=== PATIENT | male | born 1960 | race Two or more races ===

== ENCOUNTER 2022-08-03 08:26 | Emergency (ER) | payer OTHER, SELFPAY ==
--- NOTE | ~2022-08-03 | XR_ITS ---
EXAMINATION: XR SHOULDER, RIGHT CLINICAL INFORMATION: Right shoulder pain COMPARISON: None available. TECHNIQUE: 5 views of the right shoulder. FINDINGS: No acute visible fracture or dislocation. Mild degenerative changes of the glenohumeral and acromioclavicular joint. Joint spaces and alignment are otherwise maintained. Soft tissues are unremarkable. Visualized portions of the right chest are unremarkable. XR/XR shoulder RT min 2V IMPRESSION: 1. No acute visible fracture or dislocation. 2. Mild degenerative changes of the glenohumeral and acromioclavicular joint.
[2022-08-03 08:42] VITALS: BP 126/63; PULSE 61; RESP 18; TEMP 36.6; O2SAT 98; BMI 28.4
--- NOTE | 2022-08-03 09:33 | ED.EXTPRO ---
HPI - Extremity Problem General Chief complaint: Extremity Problem Stated complaint: R shoulder/arm pain Time Seen by Provider: 08/03/22 09:32 Source: patient Mode of arrival: ambulatory History of Present Illness HPI Narrative: 62-year-old male with no significant past medical history presenting to the ED complaining of acute on chronic right shoulder pain x3 weeks. Reports woke up with the pain. Reports mild swelling. Admits to doing heavy lifting at work, denies known injury/trauma or fall. Denies chest pain, shortness of breath, numbness, tingling, weakness Complaint: extremity pain Onset (ago): day(s) Related Data Previous Rx's Medication Instructions Recorded acetaminophen 500 mg tablet 500 mg PO Q6H PRN fever or pain 08/03/22 (Tylenol Extra Strength) #14 tabs lidocaine 5 % topical patch 1 patch topical DAILY PRN pain #30 08/03/22 (Lidoderm) ea naproxen 500 mg tablet 500 mg PO BID PRN pain 10 days #20 08/03/22 tabs Allergies Allergy/AdvReac Type Severity Reaction Status Date / Time pollen extracts [POLLEN] Allergy Unknown UNKNOWN Unverified 03/03/21 10:55 Review of Systems Review of Systems: Constitutional: No Fever, No Chills ENT/Mouth: No Ear Pain, No Nasal Congestion, No sore throat, No Rhinorrhea, No Swallowing Difficulty Cardiovascular: No Chest Pain, No SOB Respiratory: No Cough, No Sputum, No Wheezing Gastrointestinal: No Nausea, No Vomiting, No Diarrhea, No Constipation, No Abdominal pain Genitourinary: No Dysuria, No Urinary Frequency, No Hematuria,No Flank Pain Musculoskeletal: + joint pain, No Myalgias, + Joint Swelling Skin: No Skin Lesions, No rash Neuro: No Weakness, No Numbness, No Paresthesias Yes all other systems are reviewed and are negative Constitutional: Constitutional: Reports as per HPI [facility] Past Medical History Attestation statement: The following information was validated with the patient. Social History Social History (System 03/03/21 @ 10:55 by Ashlyn Child) Advance Directives: No Advance Directives Information Provided: Yes Physical Exam Vital Signs: Vital Signs: Last Vital Signs Temp 98 F 08/03/22 08:42 Pulse 61 08/03/22 08:42 Resp 18 08/03/22 08:42 BP 126/63 08/03/22 08:42 Pulse Ox 98 08/03/22 08:42 O2 Del Method Room Air 08/03/22 08:42 BMI result Body Mass Index 28.4 Const: General: cooperative, healthy appearing and no acute distress Orientation/consciousness: patient oriented x3 Limitations: no limitations HEENT: Head: Yes normal to inspection and Yes atraumatic Ears: hearing grossly normal bilaterally General nose exam: Normal external nose present Face and sinus: Yes normal facial exam Eyes: General: appearance normal, both eyes and all related structures EOM: EOMs intact bilaterally Neck: Neck: Yes normal visual inspection and Yes no meningeal signs Chest: Chest palpation & inspection: normal inspection of the chest and no crepitus Resp: Effort & Inspection: normal respiratory effort and no respiratory distress Auscultation: clear to auscultation bilaterally Cardio: Rate: regular rate Heart sounds: S1 normal heart sound present and S2 normal heart sound present Peripheral pulses: Peripheral pulses 2+ throughout Back/Spine/Pelvis: Other: No midline cervical/thoracic/lumbar spinous tenderness/step-off or deformity Skin: Rashes: no rashes Wounds: no wounds Neuro: General: patient oriented x3, tone normal and no meningeal signs Gait exam (Neuro): Normal gait present Extrem: Other: Right shoulder without any deformity, no erythema/warmth. Tenderness to palpation to AC joint and right axilla. No appreciable lymphadenopathy, edema, or swelling. No warmth. Full range of motion intact without pain. Neurovascular intact distally General: Yes normal to inspection Course Course Course Narrative: 1141-- XR shoulder RT min 2V IMPRESSION: 1.? No acute visible fracture or dislocation. 2.? Mild degenerative changes of the glenohumeral and acromioclavicular joint. Results discussed with patient including worrisome signs and symptoms and strict return precautions, and when to return to the emergency department. They verbalized understanding and feel safe for discharge at this time. Medications Administered Discontinued Medications Generic Name Dose Route Start Last Admin Trade Name Freq PRN Reason Stop Dose Admin Ketorolac Tromethamine 30 mg 08/03/22 09:44 08/03/22 09:49 Ketorolac Tromethamine 30 Mg/Ml Vial IM 08/03/22 09:45 30 mg ONCE ONE Administration Medical Decision Making Medical Decision Making [facility] Narrative: 62-year-old male with no significant past medical history presenting to the ED complaining of acute on chronic right shoulder pain x3 weeks. On exam vital signs stable, NAD, nontoxic appearing, physical exam as noted above. Concern for right shoulder tendinitis vs osteoarthritis vs rotator cuff or tendon/ligamental injury. Lower suspicion for ACS/PE or fracture. Evidence of infection. Unlikely septic joint/arthritis Plan: EKG, x-ray, IM Toradol Please refer to course for remaining clinical decision making, interpretation of labs/imaging results, and discussions with consultants and/or family members. Differential Diagnosis Differential Diagnoses: The differential diagnosis associated with the presentation includes As above Lab Data MDM Lab Attestation statement: I reviewed the patient's lab results. Independent Interpretation I performed an independent interpretation of an: EKG (EKG is sinus bradycardia at a rate of 44. MI interval 156. QTC 386. No STEMI. No significant change when compared to prior ) Radiology Impression Discussion of test interpretation with radiology: I have reviewed the radiologist's reading. External Record Review External record reviewed: Inpatient record, Office record, Outpatient record, Prior outpatient labs, Prior outpatient radiology, Primary care record and Outside ED record Prescription Management I considered prescription management with: Pain Medication Discharge Plan Discharge Clinical Impression: Pain in right shoulder Patient Disposition: Home, Self-Care Instructions: Shoulder Pain (ED) Additional Instructions: You should follow-up with your doctor and Orthopedics as needed Your x-rays are unremarkable Naproxen as an anti-inflammatory / pain medication, take with food Lidoderm patches are numbing patches, apply to painful area In addition take Tylenol at home If symptoms persist or worsen, pain becomes unbearable, you developed urinary retention or incontinence, or weakness return to the ED Prescriptions: New acetaminophen [Tylenol Extra Strength] 500 mg tablet 500 mg PO Q6H PRN (Reason: fever or pain) Qty: 14 0RF lidocaine [Lidoderm] 5 % adhesive patch,medicated 1 patch topical DAILY MDD remove after 12 hours PRN (Reason: pain) Qty: 30 0RF Rx Instructions: leave on most painful area for up to 12 hrs naproxen 500 mg tablet 500 mg PO BID PRN (Reason: pain) 10 Days Qty: 20 0RF Referrals: [facility] [Provider Group] Physician,Unknown J [Primary Care Provider] -
--- NOTE | 2022-08-03 09:39 | ECG_ITS ---
Test Reason : r shoulder pain Blood Pressure : / mmHG Vent. Rate : 044 BPM Atrial Rate : 044 BPM P-R Int : 156 ms QRS Dur : 116 ms QT Int : 452 ms P-R-T Axes : 016 059 019 degrees QTc Int : 386 ms Marked sinus bradycardia Abnormal ECG When compared with ECG of 23-JUL-2007 12:43, No significant change was found Referred By: Loli Menchaca Electronically Signed By:CINTIA THAKUR MD
[2022-08-03] MEDS: Ketorolac Tromethamine 30 MG/ML VIAL IM (09:49)
--- OUTSIDE RECORDS SUMMARY | 2022-08-03 09:54 | XMS_ITS | Continuity of Care Document ---
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 Start Date: 07/08/21 Status: Ordered glyBURIDE 5 mg oral tablet 7.5 mg, 1.5, tablet, By Mouth, 2 times a day, with meals, # 30 tablet, Refills 0, Maintenance, 07/08/21 11:30:00 EDT, Partial fill upon patient request if the prescription is for a schedule II opioiddrug. Start Date: 07/08/21 Status: Ordered hydrochlorothiazide 25 mg oral tablet 25 mg, 1, tablet, By Mouth, Daily, # 30 tablet, Refills 0, Maintenance, 07/08/21 11:31:00 EDT, Partial fill upon patient request if the prescription is for a schedule II opioid drug. Start Date: 07/08/21 Status: Ordered lisinopril 20 mg oral tablet 20 mg, 1, tablet, By Mouth, Daily, # 90 tablet, Refills 0, Maintenance, 07/08/21 11:30:00 EDT, Partial fill upon patient request if the prescription is for a schedule II opioid drug. Start Date: 07/08/21 Status: Ordered metFORMIN 1000 mg oral tablet, extended release 1 tablet = 1,000 mg, By Mouth, 2 times a day, with meals, # 60 tablet, 0 Refills, Maintenance, 07/08/21 11:29:00 EDT, ER Tablet, Partial fill upon patient request if the prescription is for a schedule II opioid drug. Start Date: 07/08/21 Status: Ordered simvastatin 20 mg oral tablet 20 mg, 1, tablet, By Mouth, Daily at bedtime, # 90 tablet, Refills 0, Maintenance, 07/08/21 11:31:00 EDT, Partial fill upon patient request if the prescription is for a schedule II opioid drug. Start Date: 07/08/21 Status: Ordered Vital Signs Most recent to oldest [Reference Range]: 1 2 3 Weight 79.7 kg (07/08/21 10:59 AM) Oxygen Saturation [94-100 %] 99 % (07/08/21 12:30 PM) 99 % (07/08/21 12:15 PM) 100 % (07/08/21 11:26 AM) Pulse Rate [55-90 bpm] 62 bpm (07/08/21 10:59 AM) Blood Pressure [90-138/55-84 mm Hg] 129/69mm Hg (07/08/21 12:30 PM) 109/85mm Hg (07/08/21 12:15 PM) 100/64mm Hg (07/08/21 11:26 AM) Respiratory Rate [16-30 br/min] 23 br/min (07/08/21 12:30 PM) 11 br/min *L* (07/08/21 12:15 PM) 21 br/min (07/08/21 11:26 AM) Temperature [96.8-100.4 DegF] 97.7 DegF (07/08/21 12:30 PM) 97.8 DegF (07/08/21 12:15 PM) 97.8 DegF (07/08/21 10:59 AM) Liters per Minute 2 L/min (07/08/21 11:15 AM) Mode of Delivery (Oxygen) Room air (07/08/21 12:30 PM) Room air (07/08/21 12:15 PM) Nasal cannula (07/08/21 11:15 AM) Blood pressure sites Arm, right (07/08/21 12:30 PM) Arm, right (07/08/21 12:15 PM) Arm, right (07/08/21 10:59 AM) Temperature Route Temporal (07/08/21 12:30 PM) Temporal (07/08/21 12:15 PM) Temporal (07/08/21 10:59 AM) Dry Weight 79.7 kg (07/08/21 10:59 AM) Weight Obtained Via Standing scale (07/08/21 10:59 AM) Dry Weight Obtained Via Standing scale (07/08/21 10:59 AM)
== END 2022-08-03 12:18 | disposition home or self-care (01) ==
PROVIDERS: Emergency Provider Student in an Organized Health Care Education/Training Program
DX: M25.511 Pain in right shoulder (principal)
CPT/HCPCS: 73030; 93005; 96372; 99283; 99284; J1885

== ENCOUNTER 2023-02-28 07:31 | Emergency (ER) | payer OTHER, SELFPAY ==
--- NOTE | ~2023-02-28 | XR_ITS ---
EXAMINATION: XR CHEST CLINICAL INFORMATION: Cough. COMPARISON: None available. TECHNIQUE: 2 views of the chest were obtained. FINDINGS: No significant abnormality is noted involving the heart, lungs, mediastinum, bony thorax or soft tissues. XR/XR chest 2V IMPRESSION: Unremarkable chest examination.
[2023-02-28 07:35] VITALS: BP 145/77; PULSE 70; RESP 18; TEMP 35.7; O2SAT 97; BMI 29.8
--- NOTE | 2023-02-28 07:55 | ED.URI ---
HPI - URI/Sore Throat General Chief Complaint: Upper Respiratory Symptoms Stated Complaint: Congestion Wheezing Time Seen by Provider: 02/28/23 07:54 Source: patient and old records reviewed Mode of arrival: ambulatory Limitations: no limitations History of Present Illness HPI Narrative: 63 yo male with no sig PMH reports 5 months ago he had a cold and since then at night has a whistling in his mouth or nose he is not sure that wakes him up and then he cannot sleep. He is not waking up gasping or choking he just notes that he cannot take the whistling anymore. He does not have known sleep apnea, no orthopnea, daytime symptoms, LE edema, chest pain, fevers. MD elicited complaint: other (sleep disturbance) Onset (ago): month(s) (5) Consistency: intermittent Severity: mild Description of mucous: watery Able to tolerate fluids by mouth: Yes Exacerbating factors: other (sleeping) Relieving factors: nothing Context: other (started after URI) Associated symptoms: denies other symptoms Treatments prior to arrival: other (albuterol and zyrtec) Related Data Previous Rx's Medication Instructions Recorded acetaminophen 500 mg tablet 500 mg PO Q6H PRN fever or pain 08/03/22 (Tylenol Extra Strength) #14 tabs lidocaine 5 % topical patch 1 patch topical DAILY PRN pain #30 08/03/22 (Lidoderm) ea naproxen 500 mg tablet 500 mg PO BID PRN pain 10 days #20 08/03/22 tabs fluticasone furoate 27.5 1 spray intranasal DAILY #5.9 mL 02/28/23 mcg/actuation nasal spray,suspension Allergies Allergy/AdvReac Type Severity Reaction Status Date / Time pollen extracts [POLLEN] Allergy Unknown UNKNOWN Verified 02/28/23 07:35 Review of Systems Review of Systems: Constitutional : No Fever, No Chills ENT/Mouth : No Hoarseness, No sore throat, No Rhinorrhea Eyes: No Redness, No Discharge, No Vision Changes Cardiovascular : No Chest Pain, no SOB, no Dyspnea on Exertion, No Edema Respiratory : positive Cough, No Sputum, no Wheezing, Gastrointestinal : No Nausea, No Vomiting, No Diarrhea, No abdominal Pain Genitourinary : No Dysuria, No Hematuria Musculoskeletal : No joint pain, No Myalgias Skin : No rash Neuro : No Weakness, No Numbness, No Headache Psych : No anxiety, depression All other systems reviewed and are negative [facility] Social History (System 03/03/21 @ 10:55 by Ashlyn Child) Advance Directives: No Advance Directives Information Provided: Yes Physical Exam Vital Signs: Vital Signs: Last Vital Signs Temp 98.3 F 02/28/23 08:24 Pulse 64 02/28/23 08:24 Resp 20 02/28/23 08:24 BP 132/79 02/28/23 08:24 Pulse Ox 96 02/28/23 08:24 O2 Del Method Room Air 02/28/23 07:35 BMI result Body Mass Index 29.8 Appearance: Alert. Oriented X3. No acute distress. Eyes: Pupils equal, round and reactive to light. ENT: Pharynx normal. Bilateral turbinates are pink and boggy/swollen Neck: Normal inspection. Neck supple. CVS: Normal heart rate and rhythm. Pulses normal. Respiratory: No respiratory distress. Breath sounds normal. Abdomen: Soft and nontender. Skin: Skin warm and dry. Normal skin color. Normal skin turgor. Extremities: No lower extremity edema. No calf ttp Neuro: Oriented X 3. No motor deficit. No sensory deficit. Medical Decision Making Medical Decision Making MDM Narrative: 63 yo male with PMH of URI 5 months ago that has triggered night time disturbance that includes a whistling - no gasping/choking. He has no CP/fevers, productive sputum, BURNETT. No response to albuterol or cetirizine. He notes that he cannot sleep well - at this time turbinates are very swollen and boggy will place on fluticasone and refer to PCP for sleep study. Differential Diagnosis Differential Diagnoses: The differential diagnosis associated with the presentation includes URI, allergic rhinitis Admission/Observation Consideration of admission/observation: Escalation of care including admission/observation considered not toxic can be discharged home Lab Data [facility] Lab Attestation statement: I reviewed the patient's lab results. Independent Interpretation I performed an independent interpretation of an: Plain X-Ray (no pneumonia) Radiology Impression Discussion of test interpretation with radiology: I have reviewed the radiologist's reading. Prescription Management I considered prescription management with: Other Discharge Plan Discharge Clinical Impression: Allergic rhinitis Qualifiers: Allergic rhinitis trigger: unspecified Allergic rhinitis seasonality: unspecified Qualified Code(s): J30.9 - Allergic rhinitis, unspecified Patient Disposition: Home, Self-Care Instructions: Allergic Rhinitis (ED) Additional Instructions: take the albuterol inhaler as needed for wheezing, take the cetirizine every day. use the new nasal spray every day. you need a sleep study. return for worsening symptoms, difficulty breathing, fevers, chest pain or any other concerns. Prescriptions: New fluticasone furoate 27.5 mcg/actuation spray,suspension 1 spray intranasal DAILY Qty: 5.9 1RF Rx Instructions: into each nostril No Action acetaminophen [Tylenol Extra Strength] 500 mg tablet 500 mg PO Q6H PRN (Reason: fever or pain) Qty: 14 0RF lidocaine [Lidoderm] 5 % adhesive patch,medicated 1 patch topical DAILY MDD remove after 12 hours PRN (Reason: pain) Qty: 30 0RF Rx Instructions: leave on most painful area for up to 12 hrs naproxen 500 mg tablet 500 mg PO BID PRN (Reason: pain) 10 Days Qty: 20 0RF
[2023-02-28 08:24] VITALS: BP 132/79; PULSE 64; RESP 20; TEMP 36.8; O2SAT 96
[2023-02-28 09:19] LABS: Influenza A PCR NEGATIVE (Negative); Influenza B PCR NEGATIVE (Negative); Resp Syncy Virus RNA Qual PCR NEGATIVE (Negative); SARS COV2 PCR INHOUSE NEGATIVE (Negative)
== END 2023-02-28 09:15 | disposition home or self-care (01) ==
PROVIDERS: Emergency Provider Emergency Medicine; PCP Internal Medicine
DX: J30.9 Allergic rhinitis, unspecified (principal); G47.8 Other sleep disorders; Z20.822 Contact with and (suspected) exposure to COVID-19; Z20.828 Contact with and (suspected) exposure to other viral communicable diseases
CPT/HCPCS: 0241U; 71046; 99283; 99284

== ENCOUNTER 2023-03-07 07:17 | Emergency (ER) | payer OTHER, SELFPAY ==
[2023-03-07 08:04] VITALS: BP 133/78; PULSE 71; RESP 16; TEMP 36.1; O2SAT 97; BMI 30.5
--- NOTE | 2023-03-07 10:10 | ED.GENADULT ---
HPI - General Adult General Chief complaint: General Medical Stated complaint: Cough Time Seen by Provider: 03/07/23 09:04 Source: patient and RN notes reviewed Mode of arrival: ambulatory Limitations: no limitations History of Present Illness HPI narrative: This is a [id number], with a history of asthma and hypertension presenting to the emergency department with a complaint of dry cough x several months. Patient states that he has had this ongoing dry cough for the last 4 months. He was seen by his primary care physician who prescribed him cetirizine, albuterol, Tessalon and fluticasone which he has been using without any relief. He states that the cough worsens at bedtime. He was told last week in the emergency room to have a sleep apnea test, he states that he has not followed up with this as he does not have a primary care physician appointment until April. He denies any fevers, chills, chest pain, shortness breath, abdominal pain, nausea, vomiting or diarrhea. He takes lisinopril for his high blood pressure. No other complaints or concerns at this time. MD complaint: Cough Onset (ago): month(s) Radiation: non-radiation Quality: aching Relieving factors: none Exacerbating factors: none Associated symptoms: cough Treatments prior to arrival: none Related Data Previous Rx's Medication Instructions Recorded acetaminophen 500 mg tablet 500 mg PO Q6H PRN fever or pain 08/03/22 (Tylenol Extra Strength) #14 tabs lidocaine 5 % topical patch 1 patch topical DAILY PRN pain #30 08/03/22 (Lidoderm) ea naproxen 500 mg tablet 500 mg PO BID PRN pain 10 days #20 08/03/22 tabs fluticasone furoate 27.5 1 spray intranasal DAILY #5.9 mL 02/28/23 mcg/actuation nasal spray,suspension azithromycin 250 mg tablet See Rx Instructions PO .COMPLEX #6 03/07/23 tabs Allergies Allergy/AdvReac Type Severity Reaction Status Date / Time No Known Allergies Allergy Verified 03/07/23 08:02 Review of Systems Review of Systems: Yes all other systems are reviewed and are negative Constitutional: Constitutional: Reports as per [facility] Social History Social History Advance Directives: No Advance Directives Information Provided: Yes Physical Exam ED Vital Signs: Vital Signs - 24 hr 03/07/23 08:04 03/07/23 10:41 Temperature 97.0 F Pulse Rate 71 67 Respiratory Rate 16 18 Blood Pressure 133/78 Pulse Oximetry 97 Oxygen Delivery Method Room Air BMI result Body Mass Index 30.5 Const General: cooperative, comfortable and no acute distress Orientation/consciousness: patient oriented x3 Limitations: no limitations HENMT Head: Yes normal to inspection, Yes normocephalic and Yes atraumatic Ears: hearing grossly normal bilaterally General nose exam: Normal external nose present Face and sinus: Yes normal facial exam Mouth: Normal oral and palatal mucosa present, oropharynx normal and moist mucous membranes Throat: Yes posterior oropharynx normal Eyes General: appearance normal, both eyes and all related structures Eyelids: Yes eyelids normal Conjunctivae: conjunctivae normal Sclerae: sclerae normal Pupils: Equal, round and reactive pupils present EOM: EOMs intact bilaterally Neck Neck: Yes normal visual inspection, Yes full ROM and Yes no lymphadenopathy Lymphatic: no lymphadenopathy noted Chest Chest palpation & inspection: normal inspection of the chest Resp Other: Diminished in the lower bases. Effort & Inspection: normal respiratory effort and able to speak in complete sentences Cardio Rate: regular rate Rhythm: regular rhythm Heart sounds: S1 normal heart sound present and S2 normal heart sound present GI Inspection: Yes normal to inspection Skin General skin exam: no rashes or lesions noted Trauma: no lacerations or abrasions Wounds: no wounds Neuro General: patient oriented x3 and moves all extremities Cranial nerves: Yes Equal, round and reactive pupils present Extrem General: Yes normal to inspection Right upper extremity: normal to inspection Left upper extremity: normal to inspection Right lower extremity: normal to inspection Left lower extremity: normal to inspection Course Reevaluation(s) Reevaluation #1: Discussed with patient that his symptoms are likely due to lisinopril side effect. Patient requesting antibiotic. I do not think that this is necessary however given ongoing cough for the last 4 months, will try azithromycin. Educated the importance of following up with primary care physician for sleep apnea test and discontinuation of lisinopril and switching over to a different high blood pressure medication. Patient understands and agrees with plan. Patient given return precautions. Patient stable for discharge. Time: 11:06 Medications Administered Discontinued Medications Generic Name Dose Route Start Last Admin Trade Name Freq PRN Reason Stop Dose Admin Albuterol Sulfate 2 puff 03/07/23 10:32 03/07/23 10:37 Albuterol Sulfate 90 Mcg 8 Gm Inhaler INHALE 03/07/23 10:33 2 puff ONCE ONE Administration Medical Decision Making Medical Decision Making MDM Narrative: This is a 63-year-old male presenting to the emergency department with complaints of dry cough for the last several months. On arrival, patient is nontoxic appearing, vital signs within normal limits. Lungs diminished breath sounds in the lower bases. Patient is currently on lisinopril, has been on this for many years. Given that he has had this dry cough for the last 4 months within normal chest x-ray, patient's symptoms may be due to a side effect. Patient will be seen and evaluated by respiratory therapy given diminished lung sounds at bilateral bases. Urged the importance of following up with primary care physician to have sleep apnea test performed. Differential Diagnosis Differential Diagnoses: The differential diagnosis associated with the presentation includes Dry cough, bronchitis, Radiology Impression Discussion of test interpretation with radiology: I have reviewed the radiologist's reading. External Record Review External record reviewed: Inpatient record, Office record, Outpatient record, Prior outpatient labs, Prior outpatient radiology, Primary care record and Outside ED record Discharge Plan Discharge Clinical Impression: Cough, Cough due to JAY inhibitor Patient Disposition: Home, Self-Care Instructions: Chronic Cough (ED) Additional Instructions: You were seen in the emergency department due to a cough that you have had for several months. This is likely due to your medication lisinopril. Lisinopril is your high blood pressure medication that you take daily, a very common side effect of this is a chronic dry cough. Given you have not been put on a antibiotic, I am starting him on azithromycin. Please finish the entire course even if your feeling better. Drink plenty of fluids and get plenty of rest. You need to follow-up with your primary care physician to have them prescribe you a different high blood pressure medication. Please continue taking lisinopril until they make this change. If any new or worsening symptoms occur, including but not limited to chest pain or shortness of breath, please return for re-evaluation. Prescriptions: New azithromycin 250 mg tablet See Rx Instructions PO .COMPLEX Qty: 6 0RF Rx Instructions: For 250 mg dose pack: take 500 mg today (day 1), then 250 mg for 4 days (days 2-5) No Action acetaminophen [Tylenol Extra Strength] 500 mg tablet 500 mg PO Q6H PRN (Reason: fever or pain) Qty: 14 0RF lidocaine [Lidoderm] 5 % adhesive patch,medicated 1 patch topical DAILY MDD remove after 12 hours PRN (Reason: pain) Qty: 30 0RF Rx Instructions: leave on most painful area for up to 12 hrs naproxen 500 mg tablet 500 mg PO BID PRN (Reason: pain) 10 Days Qty: 20 0RF fluticasone furoate 27.5 mcg/actuation spray,suspension 1 spray intranasal DAILY Qty: 5.9 1RF Rx Instructions: into each nostril
[2023-03-07] MEDS: Albuterol Sulfate 90 MCG 8 GM INHALER 2 PUFF INHALE (10:37)
[2023-03-07 10:41] VITALS: PULSE 67; RESP 18; O2SAT 98
== END 2023-03-07 11:17 | disposition home or self-care (01) ==
PROVIDERS: Emergency Provider Emergency Medicine Emergency Medical Services; PCP Internal Medicine
DX: R05.9 Cough, unspecified (principal); Z79.899 Other long term (current) drug therapy
CPT/HCPCS: 94640; 99284

== ENCOUNTER → 2024-09-29 09:18 | Outpatient (BNV) | payer OTHER, SELFPAY | PROVIDERS: Emergency Provider Emergency Medicine; Visit Provider Radiology Diagnostic Radiology | DX: R06.02 Shortness of breath (principal) | CPT/HCPCS: 71046 ==

== ENCOUNTER 2024-09-29 09:39 | Emergency (ER) | payer OTHER, SELFPAY ==
--- NOTE | 2024-09-29 | ECG_ITS ---
Test Reason : SOB Blood Pressure : */* mmHG Vent. Rate : 92 BPM Atrial Rate : 92 BPM P-R Int : 164 ms QRS Dur : 104 ms QT Int : 360 ms P-R-T Axes : 43 74 -1 degrees QTcB Int : 445 ms Normal sinus rhythm Abnormal QRS-T angle, consider primary T wave abnormality Abnormal ECG When compared with ECG of 03-Aug-2022 11:01, Vent. rate has increased by 48 bpm QT has lengthened Referred By: Generic ED Physician Electronically Signed By: CINTIA THAKUR MD
--- NOTE | ~2024-09-29 | XR_ITS ---
CLINICAL HISTORY: SOB 2 view chest x-ray Comparison: CR/SR - XR CHEST 2V - 02/28/23 07:53 EST Findings: The lungs are clear. Normal size heart. No acute fracture. IMPRESSION: 1. No acute findings. This document has been electronically signed by: Krzysztof Gamez MD on 09/29/2024 12:14:10
[2024-09-29 09:43] VITALS: BP 145/76; PULSE 94; RESP 18; TEMP 36.7; O2SAT 96; BMI 26.4
[2024-09-29 10:04] LABS: MANUAL DIFF FLAG NO
[2024-09-29 10:05] LABS: Basophils Percent Auto 0.4 % (0-2); Eosinophils Absolute Auto 0.1 X10*3/uL (0.0-0.4); Eosinophils Percent Auto 0.7 % (0-4); Hematocrit 42.9 % (42.0-52.0); Imm Gran Abs Auto 0.05 X10*3/uL (0.00-0.03); Imm Gran Pct Auto 0.5 % (0.0-0.4); Lymphocytes Absolute Auto 1.6 X10*3/uL (1.2-4.9); Lymphocytes Percent Auto 17.2 % (20-40); Mean Corpuscular HGB Conc 32.6 g/dl (31.0-36.0); Mean Corpuscular Hemoglobin 27.1 pg (27.0-33.0); Mean Platelet Volume 9.5 fL (9.4-12.4); Monocytes Absolute Auto 0.5 X10*3/uL (0.1-1.2); Monocytes Percent Auto 5.4 % (2-11); Neutrophils Percent Auto 75.8 % (45-73); Platelet Count 194 X10*3/uL (160-400); Red Blood Count 5.17 X10*6/uL (4.60-5.80); White Blood Count 9.2 X10*3/uL (4.8-10.8)
[2024-09-29 10:18] LABS: Alanine Aminotransferase 30 U/L (0-40); Albumin Level 4.2 g/dL (3.5-5.0); Alkaline Phosphatase 69 U/L (39-117); Anion Gap 13 (12-20); Aspartate Amino Transferase 27 U/L (5-37); Bilirubin Total 0.6 mg/dL (0.0-1.0); Blood Urea Nitrogen 18 mg/dL (9-16); Calcium 9.6 mg/dL (8.4-10.2); Carbon Dioxide 25 mmol/L (22-29); Chloride 107 mmol/L (96-108); Creatinine Clr Calc Pharmacy 58.9; Estimated Glomerular Filt Rate 59; Glucose Random 218 mg/dL (60-115); Potassium 4.3 mmol/L (3.3-5.1); Sodium 141 mmol/L (135-145); Total Protein 7.1 g/dL (6.5-8.0)
[2024-09-29 10:23] LABS: B Type Natriuretic Peptide 26 pg/mL (<100)
[2024-09-29 10:24] LABS: Troponin-I High Sensitivity 14.7 ng/L (<3.5-35.0)
--- NOTE | 2024-09-29 11:02 | ED.GENADULT ---
HPI - General Adult General Chief complaint: General Medical Stated complaint: weight loss and other concerns Time Seen by Provider: 09/29/24 10:25 Source: patient Mode of arrival: ambulatory Limitations: no limitations History of Present Illness ED Provider: DR. Tiwari HPI narrative: a 64-year-old male who just recently lost his father and grieving came in for multiple complaints. patient notice losing weight over 2-3 weeks unintentionally however patient stated that he purchased a energy gummies from the Internet used it for about month then he stopped it because he started to notice that he is losing weight. patient also been having shortness of breath when he go upstairs. Currently patient has no acute symptoms, no headache, no blurry vision, no chest pain, no shortness of breath, no abdominal pain, no nausea, no vomiting, no diarrhea, no active bleeding. Related Data Previous Rx's ?Medication ?Instructions ?Recorded acetaminophen 500 mg tablet 500 mg PO Q6H PRN fever or pain 08/03/22 (Tylenol Extra Strength) #14 tabs lidocaine 5 % topical patch 1 patch topical DAILY PRN pain #30 08/03/22 (Lidoderm) ea naproxen 500 mg tablet 500 mg PO BID PRN pain 10 days #20 08/03/22 tabs fluticasone furoate 27.5 1 spray intranasal DAILY #5.9 mL 02/28/23 mcg/actuation nasal spray,suspension azithromycin 250 mg tablet See Rx Instructions PO .COMPLEX #6 03/07/23 tabs Allergies Allergy/AdvReac Type Severity Reaction Status Date / Time No Known Allergies Allergy Verified 09/29/24 09:43 Review of Systems Review of Systems: All other systems are reviewed and are negative Constitutional: Reports as per HPI and Reports no additional constitutional complaints Eyes: Reports as per HPI and Reports no additional eye complaints Reports system reviewed and no additional complaints, except as documented Cardiovascular: Reports as per HPI and Reports no additional cardiovascular complaints Respiratory: Reports as per HPI and Reports no additional respiratory complaints Gastrointestinal: Reports as per HPI and Reports no additional gastrointestinal complaints Genitourinary: Reports no additional female genitourinary complaints Musculoskeletal: Reports no additional musculoskeletal complaints Skin/Breast: Reports system reviewed and no additional complaints, except as docu Psychiatric: Reports no additional psychiatric complaints Endocrine: Reports no additional endocrine complaints Hematologic/Lymphatic: Reports no additional hematologic/lymphatic complaints Allergic/Immunologic: Reports no additional allergic/immunologic complaints Reports system reviewed and no additional complaints, except as documented and Reports Abnormal speech present FOR[facility]LY [facility], [facility] Social History Social History Smoked in Last 30 Days: No Use of substances other than those prescribed or required for medical reasons: No Advance Directives: No Advance Directives Information Provided: Yes Physical Exam ED Vital Signs: Vital Signs - 24 hr 09/29/24 09:43 Temperature 98.0 F Pulse Rate 94 Respiratory Rate 18 Blood Pressure 145/76 H Pulse Oximetry 96 Oxygen Delivery Method Room Air BMI result Body Mass Index 26.4 Vital signs have been reviewed and appear to be correct. Blood pressure elevated. Heart rate normal. Respiratory rate normal. Temperature normal. Oxygen saturation normal. Appearance: Alert. Oriented X3. No acute distress. Head: Normal external exam. Normocephalic. Atraumatic. No Pierce signs noted. No raccoon eyes noted Eyes: PERRLA. EOMI. Conjunctiva and sclera normal. Eyelids normal. ENT: TM's Normal. Pharynx normal. Uvula midline. Moist mucous membranes. No trismus noted. No drooling noted. No muffled voice noted. Neck: Normal inspection. Neck supple. FROM. No adenopathy. Thyroid Normal. No meningeal signs. No neck mass noted. CVS: Normal heart rate and rhythm. Heart sound normal. No murmurs noted. Pulses normal throughout. Respiratory: No respiratory distress. Painless inspiration. Breath sounds normal. No wheezes/rales/rhonchi noted. Chest nontender. No accessory muscle usage noted or decreased air movement noted. Abdomen: Soft and nontender. Bowel sounds normal in all 4 quadrants. No distention noted. No organomegaly noted. No visible injury noted. Back: No CVA tenderness. Full range of motion noted. Skin: Skin warm and dry. Normal skin color. Normal skin turgor. No rashes/lesions/lacerations noted. Extremities: No lower extremity edema. Extremities exhibit normal range of motion. Extremities nontender. Neuro: Oriented X 3. Cranial nerve exam: II-XII are grossly intact No motor deficit. No sensory deficit. Reflexes normal. Course Reevaluation(s) Reevaluation #1: 64-year-old male who presented concern of losing weight unintentionally, labs are unremarkable physical exam is unremarkable, VSS. unremarkable blood workup. Patient is complaining of exertional shortness of breath when he climbs stairs, has unremarkable cardiopulmonary exam, chest x-ray is unremarkable, labs are unremarkable. Patient instructed to follow-up with PCP. Time: 12:23 Medical Decision Making Differential Diagnosis Differential Diagnoses: The differential diagnosis associated with the presentation includes ( Electrolyte derangement, severe anemia, anxiety, pneumonia, pneumothorax, congestive heart failure, ACS.) Admission/Observation Consideration of admission/observation: Escalation of care including admission/observation considered Lab Data MDM Lab Attestation statement: I reviewed the patient's lab results. 09/29/24 10:00 09/29/24 10:00 Labs: Lab Results 09/29/24 Range/Units 10:00 WBC 9.2 (4.8-10.8) X10*3/uL RBC 5.17 (4.60-5.80) X10*6/uL Hgb 14.0 (14.0-18.0) g/dl Hct 42.9 (42.0-52.0) % MCV 83.0 (80.0-98.0) fL MCH 27.1 (27.0-33.0) pg MCHC 32.6 (31.0-36.0) g/dl RDW 13.0 (11.0-16.0) % Plt Count 194 (160-400) X10*3/uL MPV 9.5 (9.4-12.4) fL Immature Gran % (Auto) 0.5 H (0.0-0.4) % Neut % (Auto) 75.8 H (45-73) % Lymph % (Auto) 17.2 L (20-40) % [place] % (Auto) 5.4 (2-11) % Eos % (Auto) 0.7 (0-4) % Baso % (Auto) 0.4 (0-2) % Lymph # (Auto) 1.6 (1.2-4.9) X10*3/uL [place] # (Auto) 0.5 (0.1-1.2) X10*3/uL Eos # (Auto) 0.1 (0.0-0.4) X10*3/uL Baso # (Auto) 0.0 (0.0-0.2) X10*3/uL Abs Immat Gran (auto) 0.05 H (0.00-0.03) X10*3/uL Absolute Neuts (auto) 7.0 (2.0-8.3) x10*3/uL Absolute Nucleated RBC 0.000 (0.0-0.012) X10*3/uL Nucleated RBC % (auto) 0.0 (0.0-0.2) /100WBC Sodium 141 (135-145) mmol/L Potassium 4.3 (3.3-5.1) mmol/L Chloride 107 (96-108) mmol/L Carbon Dioxide 25 (22-29) mmol/L Anion Gap 13 (12-20) BUN 18 H (9-16) mg/dL Creatinine 1.24 (0.5-1.4) mg/dL Estim Creat Clear Calc 58.9 Estimated GFR 59 Random Glucose 218 H (60-115) mg/dL Calcium 9.6 (8.4-10.2) mg/dL Total Bilirubin 0.6 (0.0-1.0) mg/dL AST 27 (5-37) U/L ALT 30 (0-40) U/L Alkaline Phosphatase 69 (39-117) U/L Troponin I High Sens 14.7 (<3.5-35.0) ng/L B-Natriuretic Peptide 26 (<100) pg/mL Total Protein 7.1 (6.5-8.0) g/dL Albumin 4.2 (3.5-5.0) g/dL Independent Interpretation I performed an independent interpretation of an: EKG ( Normal sinus rhythm at 92, no significant EKG changes from previous EKG.) and Plain X-Ray ( chest: No acute findings.) Radiology Impression Discussion of test interpretation with radiology: I have reviewed the radiologist's reading. Discharge Plan Discharge Clinical Impression: Anxiety about health Patient Disposition: Home, Self-Care Instructions: Anxiety (ED) Prescriptions: No Action acetaminophen [Tylenol Extra Strength] 500 mg tablet 500 mg PO Q6H PRN (Reason: fever or pain) Qty: 14 0RF lidocaine [Lidoderm] 5 % adhesive patch,medicated 1 patch topical DAILY MDD remove after 12 hours PRN (Reason: pain) Qty: 30 0RF Rx Instructions: leave on most painful area for up to 12 hrs naproxen 500 mg tablet 500 mg PO BID PRN (Reason: pain) 10 Days Qty: 20 0RF azithromycin 250 mg tablet See Rx Instructions PO .COMPLEX Qty: 6 0RF Rx Instructions: For 250 mg dose pack: take 500 mg today (day 1), then 250 mg for 4 days (days 2-5) fluticasone furoate 27.5 mcg/actuation spray,suspension 1 spray intranasal DAILY Qty: 5.9 1RF Rx Instructions: into each nostril [facility], [facility]] Print Language: Faroese
--- OUTSIDE RECORDS SUMMARY | 2024-09-29 11:11 | XMS_ITS | Encounter Summary ---
Author Organization [employer] [facility] Address [address] [place] [address] [address] [place] [address] Care Team Providers Care Culinary Artist Name Role Phone Unavailable Primary Care Provider Unavailabl e Reason for Visit * Reason Onset Date Comments Appointment 12/20/2022 Encounter Details Date Type Department Care Team (Late st Contact Info) Description 12/20/2022 Telephone [facility] [address], [place] [phone] Nithya Neville [address], [place] [phone] Appointment Social History Tobacco Use Types Packs/Day Years Used Date Smoking Tobacco: Never Assessed Sex and Gender Information Value Date Recorded Sex Assigned at Male 01/31/2022 10:19 AM EDT Legal Sex Male 10:19 AM EDT Gender Identity Choose not to disclose 10:19 AM EDT Sexual Orientation Choose not to disclose 2021 10:19 AM EDT documented as of this encounter Miscellaneous Notes * Telephone Encounter - Naz Olivarez - 12/20/2022 4:01 PM EDT Patient on wait list since May for a cleaning and exam. Checking in on status of appt DR documented in this encounter Plan of Treatment Upcoming Encounters Date Type Department Care Team (Late st Contact Info) Description 09/30/2024 8:00 AM EDT Office Visit [facility] [address] [place] [address] Alejandra Matson [address] [place], [place] [phone] documented as of this encounter Visit Diagnoses Not on filedocumented in this encounter
[2024-09-29 13:13] VITALS: BP 131/70; PULSE 61; RESP 16; TEMP 36; O2SAT 97
== END 2024-09-29 13:14 | disposition home or self-care (01) ==
PROVIDERS: Emergency Provider Emergency Medicine
DX: F41.9 Anxiety disorder, unspecified (principal); R06.02 Shortness of breath; R94.31 Abnormal electrocardiogram [ECG] [EKG]; Z79.899 Other long term (current) drug therapy
CPT/HCPCS: 36415; 71046; 80053; 83880; 84484; 85025; 93005; 99283; 99284

== ENCOUNTER → 2024-09-29 09:54 | Outpatient (BNV) | payer OTHER, SELFPAY | PROVIDERS: Emergency Provider Emergency Medicine; Visit Provider Internal Medicine Cardiovascular Disease | DX: R94.31 Abnormal electrocardiogram [ECG] [EKG] (principal); R06.02 Shortness of breath | CPT/HCPCS: 93010 ==

== ENCOUNTER 2024-11-10 05:24 | Emergency (ER) | payer OTHER, SELFPAY ==
--- NOTE | ~2024-11-10 | XR_ITS ---
CLINICAL HISTORY: cough 1 view chest x-ray Comparison: CR - XR CHEST 2V - 09/29/24 10:18 EDT Findings: No consolidation or effusion. Heart size is normal. No acute fracture. IMPRESSION: No acute cardiopulmonary abnormality. This document has been electronically signed by: Oscar Goldsmith on 11/10/2024 07:36:18
[2024-11-10 05:35] VITALS: BP 116/60; PULSE 97; RESP 18; TEMP 37.1; O2SAT 98; BMI 26.0
[2024-11-10 05:59] VITALS: O2SAT 97
[2024-11-10 06:02] LABS: Hematocrit 42.9 % (42.0-52.0); Hemoglobin 14.4 g/dl (14.0-18.0); Imm Gran Abs Auto 0.03 X10*3/uL (0.00-0.03); Imm Gran Pct Auto 0.4 % (0.0-0.4); Lymphocytes Absolute Auto 1.5 X10*3/uL (1.2-4.9); MANUAL DIFF FLAG NO; Mean Corpuscular HGB Conc 33.6 g/dl (31.0-36.0); Mean Corpuscular Hemoglobin 27.7 pg (27.0-33.0); Mean Corpuscular Volume 82.5 fL (80.0-98.0); NRBC Abs Auto 0.000 X10*3/uL (0.0-0.012); NRBC Pct Auto 0.0 /100WBC (0.0-0.2); Platelet Count 152 X10*3/uL (160-400); Red Blood Count 5.20 X10*6/uL (4.60-5.80); White Blood Count 7.9 X10*3/uL (4.8-10.8)
[2024-11-10 06:10] LABS: IDNOW Serial# 55D5AD1C; Strep A Nucleic Acid Negative (Negative)
[2024-11-10 06:20] LABS: Alanine Aminotransferase 28 U/L (0-40); Albumin Level 4.0 g/dL (3.5-5.0); Alkaline Phosphatase 59 U/L (39-117); Anion Gap 13 (12-20); Aspartate Amino Transferase 25 U/L (5-37); Blood Urea Nitrogen 16 mg/dL (9-16); Calcium 8.9 mg/dL (8.4-10.2); Carbon Dioxide 25 mmol/L (22-29); Chloride 106 mmol/L (96-108); Creatinine Clr Calc Pharmacy 58.5; Estimated Glomerular Filt Rate 58; Potassium 3.8 mmol/L (3.3-5.1); Sodium 140 mmol/L (135-145); Total Protein 7.0 g/dL (6.5-8.0)
--- NOTE | 2024-11-10 06:41 | ED.URI ---
HPI - URI/Sore Throat General Chief Complaint: Upper Respiratory Symptoms Stated Complaint: Flu Like Time Seen by Provider: 11/10/24 06:34 Source: patient Mode of arrival: ambulatory Limitations: no limitations History of Present Illness ED Provider: Dr. Roya Penny HPI Narrative: Patient comes to the emergency room complaining nasal congestion diffuse body aches, sore throat a generalized malaise for about a week. Patient denies shortness of breath or chest pain. Related Data Previous Rx's ?Medication ?Instructions ?Recorded acetaminophen 500 mg tablet 500 mg PO Q6H PRN fever or pain 08/03/22 (Tylenol Extra Strength) #14 tabs lidocaine 5 % topical patch 1 patch topical DAILY PRN pain #30 08/03/22 (Lidoderm) ea naproxen 500 mg tablet 500 mg PO BID PRN pain 10 days #20 08/03/22 tabs fluticasone furoate 27.5 1 spray intranasal DAILY #5.9 mL 02/28/23 mcg/actuation nasal spray,suspension azithromycin 250 mg tablet See Rx Instructions PO .COMPLEX #6 03/07/23 tabs doxylamin 12.5 mg-PSE 10 mg-DM 20 1 packet PO Q4H #6 ea 11/10/24 mg-acetaminophen 650 mg oral pwdr pk ([place] Plus Cold-Flu) fluticasone propionate 50 1 spray intranasal BID #16 grams 11/10/24 mcg/actuation nasal spray,suspension (Flonase Allergy Relief) Allergies Allergy/AdvReac Type Severity Reaction Status Date / Time No Known Allergies Allergy Verified 11/10/24 05:36 Review of Systems Review of Systems: Constitutional : No Weight loss, No Fever, No Chills, No Night Sweats, complaining of fatigue ENT/Mouth : No Hearing loss, No Ear Pain, complaining of nasal congestion No Sinus Pain, No Hoarseness, complaining sore throat, No Rhinorrhea, No Swallowing Difficulty Eyes: No Eye Pain, No Swelling, No Redness, No Foreign Body, No Discharge, No Vision Changes Cardiovascular : No Chest Pain, No SOB, No Dyspnea on Exertion, No Orthopnea, No Edema, No Palpitations Respiratory : No Cough, No Sputum, No Wheezing, No Smoke Exposure, No Dyspnea Gastrointestinal : No Nausea, No Vomiting, No Diarrhea, No Constipation, No abdominal Pain, No Hematochezia, No Melena Genitourinary : no irregular bleeding, No Dysuria, No Urinary Frequency, No Hematuria, No Urinary Incontinence, No Urgency, No Flank Pain, No Urinary Flow Changes, No Hesitancy Musculoskeletal : No joint pain, No Myalgias, No Joint Swelling Skin : No Skin Lesions, No rash Neuro : No Weakness, No Numbness, No Paresthesias, No Loss of Consciousness, No Dizziness, No Headache Psych : No Anxiety/Panic, No Depression, No SI/HI/AH/VH, No Social Issues, Heme/Lymph: No Bruising, No Bleeding,No Lymphadenopathy Endocrine : No Polyuria, No Polydipsia, No Temperature Intolerance [facility] Past Medical History Medical History (Updated 11/10/24 @ 06:45 by Roya Penny MD) Blindness of left eye Diabetes Hypertension Social History Social History Smoked in Last 30 Days: No Use of substances other than those prescribed or required for medical reasons: No Advance Directives: No Advance Directives Information Provided: Yes Physical Exam Exam: Exam: Appearance: Alert. Oriented X3. No acute distress. Eyes: Pupil on the right side, reactive to light, round. Left eye corneal clouding, chronic ENT: Mildly erythematous oropharynx, uvula within normal limits, no exudates. Patient does have a bit of nasal congestion, no rhinorrhea Neck: Normal inspection. Neck supple. No lymph nodes noted. No crepitus CVS: Normal heart rate and rhythm. Pulses normal. Normal S1 and S2 Respiratory: No respiratory distress. Breath sounds normal. No Wheezing. No rales Abdomen: Soft and nontender. No rigidity. No distention. Skin: Skin warm and dry. Normal skin color. Normal skin turgor. Extremities: No lower extremity edema. No Lacerations. No Rash Neuro: Oriented X 3. No motor deficit. No sensory deficit. Moving all extremities. No slurred speech. CN 2 through 12 grossly intact Psych: calm, cooperative, normal affect Vital Signs: Vital Signs: Last Vital Signs Temp 98.8 F 11/10/24 05:35 Pulse 97 11/10/24 05:35 Resp 18 11/10/24 05:35 BP 116/60 11/10/24 05:35 Pulse Ox 97 11/10/24 05:59 O2 Del Method Room Air 11/10/24 05:59 BMI result Body Mass Index 26.0 Course Course Course Narrative: Patient reports URI symptoms for 1 week. All of patient's labs pending Medical Decision Making Medical Decision Making MDM Narrative: My interpretation of labs: No significant abnormality in patient's hematology chemistry, normal LFTs. Strep negative My interpretation of chest x-ray: No acute abnormalities. Serology was sent to the lab. However, I spoke with the lab because of the results have not come back, they lost the patient's serology, they state that it does not show in the computer. Overall, patient having a viral syndrome, no pneumonia, antibiotics not indicated. Treatment would be the same Differential Diagnosis Differential Diagnoses: The differential diagnosis associated with the presentation includes (Influenza, COVID, RSV, viral URI) Lab Data MDM Lab Attestation statement: I reviewed the patient's lab results. 11/10/24 05:55 11/10/24 05:55 Labs: Lab Results 11/10/24 Range/Units 05:55 WBC 7.9 (4.8-10.8) X10*3/uL RBC 5.20 (4.60-5.80) X10*6/uL Hgb 14.4 (14.0-18.0) g/dl Hct 42.9 (42.0-52.0) % MCV 82.5 (80.0-98.0) fL MCH 27.7 (27.0-33.0) pg MCHC 33.6 (31.0-36.0) g/dl RDW 13.5 (11.0-16.0) % Plt Count 152 L (160-400) X10*3/uL MPV 9.4 (9.4-12.4) fL Immature Gran % (Auto) 0.4 (0.0-0.4) % Neut % (Auto) 65.3 (45-73) % Lymph % (Auto) 19.3 L (20-40) % [place] % (Auto) 10.8 (2-11) % Eos % (Auto) 3.7 (0-4) % Baso % (Auto) 0.5 (0-2) % Lymph # (Auto) 1.5 (1.2-4.9) X10*3/uL [place] # (Auto) 0.9 (0.1-1.2) X10*3/uL Eos # (Auto) 0.3 (0.0-0.4) X10*3/uL Baso # (Auto) 0.0 (0.0-0.2) X10*3/uL Abs Immat Gran (auto) 0.03 (0.00-0.03) X10*3/uL Absolute Neuts (auto) 5.2 (2.0-8.3) x10*3/uL Absolute Nucleated RBC 0.000 (0.0-0.012) X10*3/uL Nucleated RBC % (auto) 0.0 (0.0-0.2) /100WBC Sodium 140 (135-145) mmol/L Potassium 3.8 (3.3-5.1) mmol/L Chloride 106 (96-108) mmol/L Carbon Dioxide 25 (22-29) mmol/L Anion Gap 13 (12-20) BUN 16 (9-16) mg/dL Creatinine 1.25 (0.5-1.4) mg/dL Estim Creat Clear Calc 58.5 Estimated GFR 58 Random Glucose 145 H (60-115) mg/dL Calcium 8.9 D (8.4-10.2) mg/dL Total Bilirubin 0.5 (0.0-1.0) mg/dL AST 25 (5-37) U/L ALT 28 (0-40) U/L Alkaline Phosphatase 59 (39-117) U/L Total Protein 7.0 (6.5-8.0) g/dL Albumin 4.0 (3.5-5.0) g/dL S. pyogenes GrpA WALESKA Negative (Negative) Discharge Plan Discharge Clinical Impression: Viral URI Patient Disposition: Home, Self-Care Instructions: Upper Respiratory Infection (ED) Additional Instructions: Please follow-up with your primary care physician tomorrow. If you have any worsening or new symptoms, please return to the emergency room or call 911 Prescriptions: New [place] Plus Cold-Flu 12.5-10-20-650 mg powder in packet 1 packet PO Q4H Qty: 6 0RF Rx Instructions: DNExceed 5 doses/24h fluticasone propionate [Flonase Allergy Relief] 50 mcg/actuation spray,suspension 1 spray intranasal BID Qty: 16 0RF Rx Instructions: administer into each nostril No Action acetaminophen [Tylenol Extra Strength] 500 mg tablet 500 mg PO Q6H PRN (Reason: fever or pain) Qty: 14 0RF lidocaine [Lidoderm] 5 % adhesive patch,medicated 1 patch topical DAILY MDD remove after 12 hours PRN (Reason: pain) Qty: 30 0RF Rx Instructions: leave on most painful area for up to 12 hrs naproxen 500 mg tablet 500 mg PO BID PRN (Reason: pain) 10 Days Qty: 20 0RF azithromycin 250 mg tablet See Rx Instructions PO .COMPLEX Qty: 6 0RF Rx Instructions: For 250 mg dose pack: take 500 mg today (day 1), then 250 mg for 4 days (days 2-5) fluticasone furoate 27.5 mcg/actuation spray,suspension 1 spray intranasal DAILY Qty: 5.9 1RF Rx Instructions: into each nostril Print Language: Burmese
[2024-11-10 07:48] LABS: Resp Syncy Virus RNA Qual PCR NEGATIVE (Negative); SARS COV2 PCR INHOUSE NEGATIVE (Negative)
[2024-11-10 07:54] VITALS: BP 110/76; PULSE 78; RESP 16; TEMP 37.1; O2SAT 99
== END 2024-11-10 07:54 | disposition home or self-care (01) ==
PROVIDERS: Emergency Provider Emergency Medicine; PCP Internal Medicine
DX: R09.81 Nasal congestion (principal); M79.10 Myalgia, unspecified site; Z03.818 Encounter for observation for suspected exposure to other biological agents ruled out; Z79.899 Other long term (current) drug therapy
CPT/HCPCS: 71045; 80053; 85025; 87637; 87651; 99283; 99284

== ENCOUNTER → 2024-11-10 05:43 | Outpatient (BNV) | payer OTHER, SELFPAY | PROVIDERS: Emergency Provider Emergency Medicine; PCP Internal Medicine; Visit Provider Radiology Vascular & Interventional Radiology | DX: R05.9 Cough, unspecified (principal) | CPT/HCPCS: 71045 ==

== ENCOUNTER 2024-11-20 11:43 | Emergency (ER) | payer OTHER, SELFPAY ==
[2024-11-20 12:37] VITALS: BP 128/88; BP 150/90; PULSE 50; PULSE 51; RESP 16; TEMP 36.4; O2SAT 100; O2SAT 98; BMI 26.4
--- NOTE | 2024-11-20 12:48 | ED.GENADULT ---
HPI - General Adult General Chief complaint: General Medical Stated complaint: VOMITING Time Seen by Provider: 11/20/24 18:45 Source: patient Limitations: no limitations History of Present Illness ED Provider: Zaina Gorman PA-C HPI narrative: 64-year-old male presents with nausea vomiting since earlier today. Patient states he just had Lasix surgery yesterday, he developed a headache with nausea vomiting. Denies eye pain. His headache nausea vomiting have completely resolved. Related Data Previous Rx's ?Medication ?Instructions ?Recorded acetaminophen 500 mg tablet 500 mg PO Q6H PRN fever or pain 08/03/22 (Tylenol Extra Strength) #14 tabs lidocaine 5 % topical patch 1 patch topical DAILY PRN pain #30 08/03/22 (Lidoderm) ea naproxen 500 mg tablet 500 mg PO BID PRN pain 10 days #20 08/03/22 tabs fluticasone furoate 27.5 1 spray intranasal DAILY #5.9 mL 02/28/23 mcg/actuation nasal spray,suspension azithromycin 250 mg tablet See Rx Instructions PO .COMPLEX #6 03/07/23 tabs doxylamin 12.5 mg-PSE 10 mg-DM 20 1 packet PO Q4H #6 ea 11/10/24 mg-acetaminophen 650 mg oral pwdr pk ([place] Plus Cold-Flu) fluticasone propionate 50 1 spray intranasal BID #16 grams 11/10/24 mcg/actuation nasal spray,suspension (Flonase Allergy Relief) Allergies Allergy/AdvReac Type Severity Reaction Status Date / Time No Known Allergies Allergy Verified 11/20/24 12:43 Review of Systems Review of Systems: Yes all other systems are reviewed and are negative Constitutional: Constitutional: Denies fatigue, Denies fever(s) and Denies headache(s) Eyes: Eyes: Denies eye pain ENT: Denies dizziness and Denies headache(s) Gastrointestinal: Gastrointestinal: Denies abdominal pain, Denies nausea and Denies vomiting Neurologic: Denies dizziness and Denies headache(s) Endocrine: Endocrine: Denies fatigue PMF Past Medical History Attestation statement: The following information was validated with the patient. Medical History (Updated 11/21/24 @ 00:00 by Hunter Arroyo) Blindness of left eye Diabetes Hypertension Social History Social History Advance Directives: No Advance Directives Information Provided: Yes Physical Exam ED Vital Signs: Vital Signs - 24 hr 11/20/24 12:37 11/20/24 18:42 Temperature 97.5 F 97.8 F Pulse Rate 51 50 Respiratory Rate 16 16 Blood Pressure 128/88 149/53 H Pulse Oximetry 100 99 Oxygen Delivery Method Room Air Room Air BMI result Body Mass Index 26.4 Const Other: Alert Orientation/consciousness: patient oriented x3 Resp Effort & Inspection: normal respiratory effort Cardio Other: Normal peripheral perfusion Skin Other: Warm dry no rash Neuro General: patient oriented x3, gait normal, no focal motor deficits and CN's II-XI intact bilaterally Psych Other: Cooperative Course Course Course Narrative: RME, this is a rapid medical exam performed by Anders Oates please refer to primary provider for complete H&P- 64-year-old male presents for evaluation of headache, nausea, vomiting and dizziness. He reports having had eye surgery yesterday. He is coming from the [facility] in follow up. Plan for basic labs, EKG. Medical Decision Making Medical Decision Making [facility] Narrative: 64-year-old male presents with nausea vomiting since earlier today. Patient states he just had Lasix surgery yesterday, he developed a headache with nausea vomiting. Denies eye pain. His headache nausea vomiting have completely resolved. Problem: Recent surgery History: Per patient I have considered the following differential diagnoses: Postoperative complication, side-effect from the procedure Plan: The patient's symptoms have completely resolved, it is a common side-effect to have headache with nausea vomiting following LASIK, the patient has been asking to leave since he arrived. We will discharge now. Screening labs were obtained from triage I have independently reviewed the following tests: Labs: Leukocytosis, not anemic, no electrolyte abnormality noted Differential Diagnosis Differential Diagnoses: The differential diagnosis associated with the presentation includes See medical decision-making Admission/Observation Consideration of admission/observation: Escalation of care including admission/observation considered Not applicable Lab Data [facility] Lab Attestation statement: I reviewed the patient's lab results. 11/20/24 13:13 11/20/24 13:13 Labs: Lab Results 11/20/24 11/20/24 Range/Units 13:13 16:45 WBC 15.8 H (4.8-10.8) X10*3/uL RBC 5.05 (4.60-5.80) X10*6/uL Hgb 13.9 L (14.0-18.0) g/dl Hct 42.0 (42.0-52.0) % MCV 83.2 (80.0-98.0) fL MCH 27.5 (27.0-33.0) pg MCHC 33.1 (31.0-36.0) g/dl RDW 13.2 (11.0-16.0) % Plt Count 207 D (160-400) X10*3/uL MPV 9.5 (9.4-12.4) fL Immature Gran % (Auto) 0.6 H (0.0-0.4) % Neut % (Auto) 89.3 H (45-73) % Lymph % (Auto) 7.3 L (20-40) % [place] % (Auto) 2.5 (2-11) % Eos % (Auto) 0.1 (0-4) % Baso % (Auto) 0.2 (0-2) % Lymph # (Auto) 1.2 (1.2-4.9) X10*3/uL [place] # (Auto) 0.4 (0.1-1.2) X10*3/uL Eos # (Auto) 0.0 (0.0-0.4) X10*3/uL Baso # (Auto) 0.0 (0.0-0.2) X10*3/uL Abs Immat Gran (auto) 0.09 H (0.00-0.03) X10*3/uL Absolute Neuts (auto) 14.1 H (2.0-8.3) x10*3/uL Absolute Nucleated RBC 0.000 (0.0-0.012) X10*3/uL Nucleated RBC % (auto) 0.0 (0.0-0.2) /100WBC Sodium 141 (135-145) mmol/L Potassium 3.7 (3.3-5.1) mmol/L Chloride 104 (96-108) mmol/L Carbon Dioxide 27 (22-29) mmol/L Anion Gap 14 (12-20) BUN 16 (9-16) mg/dL Creatinine 1.01 (0.5-1.4) mg/dL Estim Creat Clear Calc 72.4 Estimated GFR > 60 Random Glucose 185 H (60-115) mg/dL Calcium 9.3 (8.4-10.2) mg/dL Total Bilirubin 0.5 (0.0-1.0) mg/dL AST 24 (5-37) U/L ALT 31 (0-40) U/L Alkaline Phosphatase 65 (39-117) U/L Troponin I High Sens 8.1 (<3.5-35.0) ng/L Total Protein 7.4 (6.5-8.0) g/dL Albumin 4.6 (3.5-5.0) g/dL Urine Color Yellow Urine Appearance Clear Urine pH >= 9.0 (5.0-9.0) Ur Specific [place] 1.010 (1.005-1.025) Urine Protein Negative (Neg-Trace) mg/dL Urine Glucose (UA) Negative (Negative) mg/dL Urine Ketones Negative (Negative) mg/dL Urine Blood Negative (Negative) Urine Nitrite Negative (Negative) Ur Leukocyte Esterase Negative (Negative) Influenza Type A (PCR) NEGATIVE (Negative) Influenza Type B (PCR) NEGATIVE (Negative) RSV RNA Qual (PCR) NEGATIVE (Negative) SARS-CoV-2 RNA (RT-PCR) NEGATIVE (Negative) Discharge Plan Discharge Clinical Impression: Headache, Nausea & vomiting Patient Disposition: Home, Self-Care Instructions: Acute Headache (ED), Acute Nausea and Vomiting (ED) Additional Instructions: All of your screening labs were normal, with the exception that your white blood cell count was slightly elevated. This is likely purely reactive from having had a surgical procedure. In regard to your headache with nausea vomiting, this is a common side-effect associated with the LASIK surgery. Furthermore, your symptoms have completely resolved. Be sure to follow up with the doctor who performed the procedure. Prescriptions: No Action acetaminophen [Tylenol Extra Strength] 500 mg tablet 500 mg PO Q6H PRN (Reason: fever or pain) Qty: 14 0RF lidocaine [Lidoderm] 5 % adhesive patch,medicated 1 patch topical DAILY MDD remove after 12 hours PRN (Reason: pain) Qty: 30 0RF Rx Instructions: leave on most painful area for up to 12 hrs naproxen 500 mg tablet 500 mg PO BID PRN (Reason: pain) 10 Days Qty: 20 0RF azithromycin 250 mg tablet See Rx Instructions PO .COMPLEX Qty: 6 0RF Rx Instructions: For 250 mg dose pack: take 500 mg today (day 1), then 250 mg for 4 days (days 2-5) fluticasone furoate 27.5 mcg/actuation spray,suspension 1 spray intranasal DAILY Qty: 5.9 1RF Rx Instructions: into each nostril [place] Plus Cold-Flu 12.5-10-20-650 mg powder in packet 1 packet PO Q4H Qty: 6 0RF Rx Instructions: DNExceed 5 doses/24h fluticasone propionate [Flonase Allergy Relief] 50 mcg/actuation spray,suspension 1 spray intranasal BID Qty: 16 0RF Rx Instructions: administer into each nostril Interventions: ED Discharge Assessment Last Done: 11/20/24 19:34 Discharge Date/Time: 11/20/24 19:34 Print Language: Anguillan
[2024-11-20 13:23] LABS: MANUAL DIFF FLAG NO
[2024-11-20 13:25] LABS: Hematocrit 42.0 % (42.0-52.0); Hemoglobin 13.9 g/dl (14.0-18.0); Imm Gran Abs Auto 0.09 X10*3/uL (0.00-0.03); Imm Gran Pct Auto 0.6 % (0.0-0.4); Lymphocytes Absolute Auto 1.2 X10*3/uL (1.2-4.9); Mean Corpuscular HGB Conc 33.1 g/dl (31.0-36.0); Mean Corpuscular Hemoglobin 27.5 pg (27.0-33.0); Mean Corpuscular Volume 83.2 fL (80.0-98.0); NRBC Abs Auto 0.000 X10*3/uL (0.0-0.012); NRBC Pct Auto 0.0 /100WBC (0.0-0.2); Platelet Count 207 X10*3/uL (160-400); Red Blood Count 5.05 X10*6/uL (4.60-5.80); White Blood Count 15.8 X10*3/uL (4.8-10.8)
[2024-11-20 13:45] LABS: Alanine Aminotransferase 31 U/L (0-40); Albumin Level 4.6 g/dL (3.5-5.0); Alkaline Phosphatase 65 U/L (39-117); Anion Gap 14 (12-20); Aspartate Amino Transferase 24 U/L (5-37); Blood Urea Nitrogen 16 mg/dL (9-16); Calcium 9.3 mg/dL (8.4-10.2); Carbon Dioxide 27 mmol/L (22-29); Chloride 104 mmol/L (96-108); Creatinine Clr Calc Pharmacy 72.4; Estimated Glomerular Filt Rate > 60; Potassium 3.7 mmol/L (3.3-5.1); Sodium 141 mmol/L (135-145); Total Protein 7.4 g/dL (6.5-8.0)
[2024-11-20 13:52] LABS: Troponin-I High Sensitivity 8.1 ng/L (<3.5-35.0)
[2024-11-20 14:16] LABS: Resp Syncy Virus RNA Qual PCR NEGATIVE (Negative); SARS COV2 PCR INHOUSE NEGATIVE (Negative)
[2024-11-20 16:57] LABS: Appearance Urine Clear; Glucose Urine UA Negative (Negative); PH >= 9.0 (5.0-9.0); Specific Gravity - Urine 1.010 (1.005-1.025)
[2024-11-20 18:42] VITALS: BP 149/53; PULSE 50; RESP 16; TEMP 36.6; O2SAT 99
[2024-11-20 19:34] VITALS: BP 149/53; PULSE 50; RESP 16; TEMP 36.6; O2SAT 99
--- NOTE | 2024-11-21 | ECG_ITS ---
Test Reason : SOB Blood Pressure : */* mmHG Vent. Rate : 46 BPM Atrial Rate : 46 BPM P-R Int : 160 ms QRS Dur : 116 ms QT Int : 456 ms P-R-T Axes : 43 74 13 degrees QTcB Int : 399 ms Sinus bradycardia Otherwise normal ECG When compared to the previous EKG of Vent. rate has decreased Referred By: Phan Atkinson Electronically Signed By: CINTIA THAKUR MD
== END 2024-11-20 19:34 | disposition home or self-care (01) ==
PROVIDERS: Emergency Provider Emergency Medicine; PCP Internal Medicine
DX: R11.2 Nausea with vomiting, unspecified (principal); R51.9 Headache, unspecified; I10 Essential (primary) hypertension; E11.9 Type 2 diabetes mellitus without complications; Z79.899 Other long term (current) drug therapy
CPT/HCPCS: 80053; 81003; 84484; 85025; 87637; 93005; 99283; 99284

== ENCOUNTER → 2024-11-21 | Outpatient (BNV) | payer OTHER, SELFPAY | PROVIDERS: Emergency Provider Emergency Medicine; PCP Internal Medicine; Visit Provider Internal Medicine Cardiovascular Disease | DX: R00.1 Bradycardia, unspecified (principal) | CPT/HCPCS: 93010 ==

== ENCOUNTER 2024-12-02 04:24 | Emergency (ER) | payer OTHER, SELFPAY ==
--- NOTE | 2024-12-02 | ECG_ITS ---
Test Reason : CP, SOB Blood Pressure : */* mmHG Vent. Rate : 76 BPM Atrial Rate : 76 BPM P-R Int : 166 ms QRS Dur : 108 ms QT Int : 372 ms P-R-T Axes : 12 63 0 degrees QTcB Int : 418 ms Normal sinus rhythm Normal ECG When compared with ECG of 20-Nov-2024 12:56, Vent. rate has increased by 30 bpm Referred By: Generic ED Physician Electronically Signed By: CINTIA THAKUR MD
--- NOTE | ~2024-12-02 | XR_ITS ---
CLINICAL HISTORY: chest pain 2 view chest x-ray. Comparison: CR - XR CHEST 1V - 11/10/24 06:02 EDT CR - XR CHEST 2V - 09/29/24 10:18 EDT Findings: Normal lung volumes. Lungs are clear. No pneumothorax or pleural effusion. Heart size normal. No passive venous congestion. No midline shift or tracheal deviation. No acute fracture. Impression: 1. No acute cardiopulmonary disease. This document has been electronically signed by: Omari Bush MD on 12/02/2024 07:51:14
[2024-12-02 04:52] VITALS: BMI 26.3
--- OUTSIDE RECORDS SUMMARY | 2024-12-02 05:10 | XMS_ITS | Clinical Summary ---
Author Organization [employer] Address [address] [place] [address] Care Team Providers [facility] Name Role Phone Unavailable Primary Care Provider Unavailabl e Allergies Active Allergy Reactions Criticality Noted Date Comments Clindamycin Shortness of breath High 12/05/2012 Medications Acetaminophen Extra Strength 500 MG tablet TAKE 1 TABLET ORALLY EVERY 6 HOURS NEEDED FOR FEVER OR PAIN 3 Active albuterol 108 (90 Base) MCG/ACT inhaler INHALE 2 PUFFS INTO THE LUNGS EVERY 6 HOURS NEEDED FOR COUGH OR WHEEZING. 3 Active hydroCHLOROthia zide (HYDRODiuril) 25 MG tablet Take 25 mg by mouth in the morning. 3 Active lisinopril 20 MG tablet 3 Active latanoprost (Xalatan) 0.005 % ophthalmic solution INSTILL 1 DROP INTO RIGHT EYE EVERY NIGHT 2 Active metFORMIN (Glucophage) 1000 MG tablet Take 1,000 mg by mouth with breakfast and with evening meal. 3 Active simvastatin (Zocor) 20 MG tablet Take 20 mg by mouth at bedtime. 3 Active tadalafil (Cialis) 20 MG tablet TAKE ONE TABLET BY MOUTH EVERY DAY DIRECTED; TAKE 30-60 MINUTES PRIOR TO SEX ON AN EMPTY STOMACH 3 Active tamsulosin (Flomax) 0.4 MG 24 hr capsule TAKE 1 CAPSULE BY MOUTH EVERYDAY AT BEDTIME 3 Active glyBURIDE (Diabeta) 2.5 MG tablet Take 2.5 mg by mouth with breakfast. 3 Active famotidine (Pepcid) 40 MG tablet TAKE 1 TABLET BY MOUTH 2 TIMES DAILY NEEDED FOR GERD FOR UP TO 360 DAYS. 3 Active cetirizine (ZyrTEC) 10 MG tablet Take 10 mg by mouth in the morning. 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 Social History Tobacco Use Types Packs/Day Years Used Date Smoking Tobacco: Former Cigarettes Smokeless Tobacco: Never Tobacco Cessation:Counseling Given: Not Answered Sex and Gender Information Value Date Recorded Sex Assigned at Male 01/31/2022 10:19 AM EDT Legal Sex Male 10:19 AM EDT Gender Identity Choose not to disclose 10:19 AM EDT Sexual Orientation Choose not to disclose 2021 10:19 AM EDT Last Filed Vital Signs Vital Sign Reading Time Taken Comments Blood Pressure 122/74 02/06/2024 7:56 AM EST Pulse 74 07/25/2023 8:41 AM EDT Temperature - - Respiratory Rate - - Oxygen Saturation - - Inhaled Oxygen Concentration - - Weight - - Height - - Body Mass Index - - Plan of Treatment Health Maintenance Due Date Last Done Comments CT Colonography 1961 Colonoscopy 1961 Colorectal Cancer Screening 1961 Depression Screening 1961 FIT DNA/Cologuard 1961 FIT 1961 FOBT 1961 HIV Screening 1961 Lipid Panel 1961 SDOH Screening 1961 Sigmoidoscopy 1961 Disability Screening 1961 Alcohol/Substance Use Screening 1973 Hepatitis C Screening 1979 COVID-19 Vaccine ( season) 2023 11/27/2022, 10/24/2021, 04/18/2021, Additional history exists Dental Oral Exam 01/25/2024 07/25/2023, 01/2023, 05/29/2019, Additional history exists Dental X-Ray: Full Mouth 03/17/2024 03/16/2021, 11/2013 Dental X-Ray: Bitewings 07/25/2024 07/25/19, 12/23/2022, 03/16/2021, Additional history exists Dental Prophylaxis 08/06/2024 02/06/2024, 0 07/25/2023, 12/23/2022, Additional history exists Influenza Vaccine (#1) 2024 3, 12/24/2010, 01/13/2010 Tobacco Screening 02/05/2025 02/06/2024 DTaP/Tdap/Td Vaccines (3 - Td or Tdap) 01/18/2029 01/18/2019, 07/11/2008 Zoster Vaccines Completed 01/07/2023, 10/16/2022 Pneumococcal Vaccine: 50+ Years Completed 09/08/2023, 11/11/2013 RSV Patients and Patients Aged 60 years or older Completed 09/08/2023 HIB Vaccines Aged Out No longer eligi ble based on patient's age to complete this topic HPV Vaccines Aged Out No longer eligi ble based on patient's age to complete this topic Hepatitis A Vaccines Aged Out No long er eligible based on patient's age to complete this topic Hepatitis B Vaccines Aged Out No long er eligible based on patient's age to complete this topic IPV Vaccines Aged Out No longer eligi ble based on patient's age to complete this topic Meningococcal B Vaccine Aged Out No l onger eligible based on patient's age to complete this topic Meningococcal Vaccine Aged Out No patricio mary eligible based on patient's age to complete this topic RSV under 20 months Aged Out No longe r eligible based on patient's age to complete this topic Rotavirus Vaccines Aged Out No longer eligible based on patient's age to complete this topic Procedures Procedure Name Priority Date/Time Associated Diagnosis Comments Full PROPHYLAXIS - ADULT Routine 024 8:00 AM EST Dental plaque BITEWINGS - 4 RADIOGRAPHIC IMAGES Routine 07/25/2023 9:00 AM EDT Gingival recession, generalized Dental calculus PERIODIC ORAL EVALUATION - ESTABLISHED PATIENT Routine 07/25/2023 9:00 AM EDT INTRAORAL - COMPLETE SERIES OF RADIOGRAPHIC IMAGES Routine 03/16/2021 12:00 AM EST from Last 3 Months or Most Recently Relevant to Health Maintenance Insurance [facility] MEDICAID STAND ADULT * Guarantor: Holland Washburn Account Type Relation to Patient Date of Phone Billing Address Personal/Family Self [address]
--- OUTSIDE RECORDS SUMMARY | 2024-12-02 05:10 | XMS_ITS | Clinical Summary ---
Author Organization [facility] [address] [facility] l[address] Address [address] [place] [address] Phone Care Team Providers Care Lehr Operator Name Role Phone Octavia Marie MD Primary Care Provider [phone] Allergies Active Allergy Reactions Criticality Noted Date Comments Clindamycin Shortness of breath High 12/05/2012 Medications ammonium lactate (LAC-HYDRIN) 12 % lotion APPLY TO SOLES OF FEET DAILY. AT NIGHT WEAR SOCKS TO BED Strength: 12 % 10/09/19 24 Active ciclopirox (PENLAC) 8 % solution Apply daily to nails clean medication residue off of nail plate every 3 days with rubbing alcohol 08/14/19 24 Active fexofenadine (HARJEET) 60 mg tablet Take 1 tablet (60 mg total) by mouth 1 (one) time each day. 08/09/19 24 Active fluticasone (VERAMYST) 27.5 mcg/actuation nasal spray Administer 2 sprays into affected nostril(s) 1 (one) time each day. 02/09/20 23 Active tamsulosin (FLOMAX) 0.4 mg 24 hr capsule Take 1 capsule (0.4 mg total) by mouth 1 (one) time each day. Take 30 mins after same meal every day. Dx BPH, prescribe by urologist Active Autolet lancing deviceIndications: Type II diabetes mellitus with neurological manifestations (CMS/HCC V24, CMS/HCC V28) Use 1 - 4 times daily as instructed 100 each 11 02/13/20 24 025 Active isopropyl alcohoL 70 % toweletteIndicatio ns:Type II diabetes mellitus with neurological manifestations (CMS/HCC V24, CMS/HCC V28) Use as directed 100 each 3 02/13/20 24 Active Autolet (OneTouch Delica Plus Lanc Dev) lancing device Use as instructed once daily 1 each 02/22/20 24 Active OneTouch Ultra2 Meter misc USE TO MONITOR BLOOD SUGAR ONCE DAILY 1 each 02/23/20 24 025 Active FreeStyle Lite Meter monitoring kit USE TO TEST BLOOD SUGAR ONCE DAILY 1 each 03/06/20 24 Active FreeStyle Lancets 28 gauge lancets USE TO TEST BLOOD SUGAR ONCE DAILY 100 each 1 03/06/20 24 025 Active famotidine (PEPCID) 40 mg tablet TAKE 1 TABLET BY MOUTH 2 TIMES DAILY NEEDED FOR GERD 180 tablet 1 04/10/19 25 Active mineral oil-hydrophilic petrolatum (AQUAPHOR) ointment Apply topically if needed for dry skin. 420 g 1 06/05/19 25 026 Active ammonium lactate (AmLactin) 12 % lotion Apply topically if needed for dry skin. 400 g 2 06/28/19 25 026 Active lisinopriL (PRINIVIL,ZESTRIL) 20 mg tablet TAKE 1 TABLET BY MOUTH EVERY DAY 90 tablet 1 07/26/19 25 Active polyethylene glycol (Golytely) 236-22.74-6.74 -5.86 gram solution Take 4L by mouth once for one dose. May substitue any PEG. Starting at 6PM the night before your procedure drink 1 8oz glasses at your own pace until you complete half of the gallon. Finish 2nd half of the gallon 5 hours before your procedure. 4000 mL 07/27/19 25 Active bisacodyL (DULCOLAX) 5 mg EC tablet Take 2 tablets by mouth right before beginning bowel prep. See instructions provided by the office 2 tablet 07/27/19 25 Active metFORMIN (GLUCOPHAGE) 1,000 mg tablet Take 1 tablet (1,000 mg total) by mouth 2 (two) times a day with meals. 180 tablet 1 08/31/19 25 Active blood sugar diagnostic (FreeStyle Lite Strips) test strip USE TO TEST BLOOD SUGAR ONCE DAILY 100 strip 1 10/09/19 25 Active hydroCHLOROthiazid e (HYDRODIURIL) 25 mg tablet TAKE 1 TABLET BY MOUTH EVERY DAY 90 tablet 10/09/19 25 Active simvastatin (ZOCOR) 20 mg tablet TAKE 1 TABLET BY MOUTH EVERYDAY AT BEDTIME 90 tablet 1 10/16/19 25 Active acetic acid-hydrocortison e (VOSOL-HC) otic solution Administer 3 drops into each ear 3 (three) times a day. 5 mL 11/07/19 25 026 Active Active Problems Problem Noted Date Diagnosed Date Type 2 diabetes mellitus wit h other specified complication ([facility] V24, [facility] V28) 11/12/2024 Primary hypertension 11/12/2024 Adjustment disorder with depressed mood 04/26/19 20 Type II diabetes mellitus wi th neurological manifestations ([facility] V24, [facility] V28) 01/18/2019 Renal cyst 04/09/2018 Prostate enlargement 12/29/2016 Blindness of left eye 09/24/2015 Overview (01/04/2024): 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 Diastasis recti 03/20/2015 Low HDL (under 40) 02/18/2015 Lipoma of breast 02/19/2014 Breast mass in male 02/12/2014 Hand pain 12/30/2013 Microalbuminuria 06/07/2013 DM (diabetes mellitus) type II controlled with renal manifestation ([facility] V24, [facility] V28) 08/08/2012 Overview (01/04/2024): Microalbumin 48 on 04/17/2011 Allergic rhinitis 06/27/2012 Essential hypertension, benign 06/27/2012 Depression 10/01/2010 Hyperlipidemia with target LDL less than 100 07/2007 Overview (01/04/2024): IMO update Chest pain, unspecified 02/27/2008 Obesity, unspecified 02/27/2008 Premature ejaculation 02/27/2008 Encounters Date Type Department Care Team Description 11/12/2024 1:20 PM EDT Lab Draw Station - [address] [id number] Preop examination; Type 2 diabetes mellitus without complication, without long-term current use of insulin ([facility] V24, [facility] V28); Hyperlipidemia, unspecified hyperlipidemia type 11/12/2024 12:30 PM EDT Consult Adult Medicine [address] [phone] Octavia Marie MD Preop examination (Primary Dx); Type 2 diabetes mellitus with other specified complication, unspecified whether prison insulin use ([facility] V24, [facility] V28); Primary hypertension 11/06/2024 1:00 PM EDT Office Visit Adult [address] [phone] Kam Sanchez NP Ear itch (Primary Dx); Controlled type 2 diabetes mellitus with other diabetic kidney complication, without long-term current use of insulin ([facility] V24, [facility] V28); Essential hypertension, benign; Hyperlipidemia with target LDL less than 100; Benign prostatic hyperplasia without lower urinary tract symptoms 09/17/2024 Telephone Gastroenterology - [place] [address] [facility] 175 [facility] [address] [place] [address] Ananda Ramires DO from Last 3 Months Immunizations Name Administration Dates Next Due Influenza trivalent, with pr eservative (Fluzone; Afluria) 6mo and older 12/24/2010,01/13/2010 Influenza, Unspecified 01/18/2013 Moderna SARS-CoV-2 COVID-19, mRNA, LNP-S, preservative free 09/07/2020,08/10/2020 Pneumococcal conjugate 20 va lent (Prevnar 20, PCV 20) 2mo and older 09/08/2023 Pneumococcal polysaccharide 23 valent (Pneumovax 23) 2yo and older 11/11/2013 RSV, bivalent, protein subun it RSVpreF, 0.5mL, Preservative Free (Arexvy) 60yo and older 09/08/2023 Respiratory syncytial virus (RSV), unspecified 0 09/08/2023 Td Tetanus diptheria (Tdvax) 7yo and older 01/18 Tdap Tetanus diptheria acell ular pertussis (Boostrix; Adacel) 7yo and older 07/11/2008 Zoster Live 01/07/2023 Zoster recombinant (Shingrix) 19yo and older 10/2022,10/16/2022 Surgical History Surgery Date Site/Laterality Comments COLONOSCOPY 2013 PROCEDURE: OH COLONOSCOPY FLX DX W/COLLJ SPEC WHEN PFRMD; COMMENT: normal COLONOSCOPY PROCEDURE: HISTORICAL COLONOSCOPY Medical History Medical History Date Comments Hyperlipemia DX:Hyperlipemia Unspecified disorder of lipo id metabolism 03/06/2008 DX:Unspecified disorder of l ipoid metabolism Unspecified essential hypertension DX:Unspecified essential hypertension Diabetes mellitus type 2, co ntrolled ([facility] V24, [facility] V28) 06/21/2010 DX:Diabetes mellitus type 2 , controlled (HCC) Type II or unspecified type diabetes mellitus with unspecified complication, not stated as uncontrolled DX:Type II or unspecified ty pe diabetes mellitus with unspecified complication, not stated as uncontrolled Essential hypertension, benign 06/27/2012 D X:Essential hypertension, benign Diastasis recti 03/20/2015 DX:Diastasis rec ti Family History Medical History Relation Name Comments Diabetes Brother 1 Hypertension Father Prostate cancer Father CABG Mother Diabetes Mother Hypertension Mother Diabetes Sister 1 Blindness Neg Hx Cataracts Neg Hx Glaucoma Neg Hx Macular degeneration Neg Hx Strabismus Neg Hx Relation Name Status Comments Brother 1 Brother 2 Alive Brother 3 Alive Father Alive Mother Alive Sister 1 Sister 2 Alive Sister 3 Alive Sister 4 Alive Sister 5 Alive Social History Tobacco Use Types Packs/Day Years Used Date Smoking Tobacco: Former Cigarettes Q uit: 04/03/1992 Smokeless Tobacco: Never Tobacco Cessation:Counseling Given: Not Answered Alcohol Use Standard Drinks/Week Comments Not Currently 0 (1 standard drink = 0.6 oz pur e alcohol) Sex and Gender Information Value Date Recorded Sex Assigned at Not on file Legal Sex Male 11:46 PM EST Gender Identity Not on file Sexual Orientation Not on file Obstetrics History Last Filed Vital Signs Vital Sign Reading Time Taken Comments Blood Pressure 110/54 11/12/2024 12:27 PM EDT Pulse 72 11/12/2024 12:27 PM EDT Temperature 36.2 C (97.2 F) 11/12/2024 12:27 PM EDT Respiratory Rate 12 11/12/2024 12:27 PM EDT Oxygen Saturation 99% 03/05/2024 9:27 AM EST Inhaled Oxygen Concentration - - Weight 78.5 kg (173 lb) 11/12/2024 12:27 PM EDT Height 172.7 cm (5' 8 ) 11/12/2024 12:27 PM EDT Body Mass Index 26.3 11/12/2024 12:27 PM EDT Plan of Treatment Upcoming Encounters Date Type Department Care Team (Late st Contact Info) Description 12/26/2024 8:45 AM EDT Office Visit Orthopedic Surgery - [place] [address] [facility] [address] [place] [phone] Willie Barth DPM [address] [place] [address] 01/08/2025 12:00 PM EDT Appointment [facility]oscopy [address] [place] [phone] Gilbert Huffman MD [address] [place] [address] 03/04/2025 7:45 AM EST Office Visit Adult Medicine [facility] [address] [place] [address] Octavia Marie MD [address] [place] [address] Health Maintenance Due Date Last Done Comments Social Influencers of Health Screening 03/12/2022 Zoster Vaccines (2 of 2) 03/04/2023 023, 01/07/2023, 10/16/2022 Colorectal Cancer Screening: Colonoscopy 05/30/2023 05/30/2013 Depression Screening 04/03/2024 03/05/2024 Diabetes: Annual Retina Eye Exam 05/26/2024 05/26/2023 COVID-19 Vaccine ( season) 2024 11/27/2022, 10/24/2021, 04/18/2021, Additional history exists Diabetes: Annual Foot Exam 04/03/2025 02/08/2023 P ostponed from 2024 (Patient Refused) Diabetes: Blood Sugar Control Test (HGBA1C) 05/15/2025 11/12/2024, 11/06/2024, 06/05/2024, Additional history exists Diabetes: Annual GFR (Glomerular Filtration Rate) 11/06/2025 11/06/2024, 03/06/2024, 02/14/2024, Additional history exists Hypertension/CHF/CAD Annual BMP Blood Test 11/06/2025 11/06/2024, 03/06/2024, 02/14/2024, Additional history exists Diabetes: Annual Urine Albumin-Creatinine Ratio (uACR) 11/12/2025 11/12/2024, 11/06/2024, 06/05/2024, Additional history exists DTaP,Tdap,and Td Vaccines (3 - Td or Tdap) 01/18/2029 01/18/2019, 07/11/2008 Cholesterol Screening (Lipid Panel) 11/12/2029 11/12/2024, 11/06/2024, 06/05/2024, Additional history exists Influenza Vaccine Discontinued 01/18/2013, , 01/13/2010 Pneumococcal Vaccine: 50+ Years Completed 09/08/2023, 11/11/2013 RSV Immunization Adult Patients Completed 09/08/2023, 09/08/2023 RSV Immunization Patients Under 20 months Aged Out 09/08/2023 No longer eligible based on patient's age to complete this topic HIV Screening Completed 03/06/2024 Hepatitis C Screening Completed 03/06/2024 HIB Vaccines Aged Out No longer eligi [...] on patient's age to complete this topic MMR Vaccines Aged Out No longer eligi ble based on patient's age to complete this topic Meningococcal ACWY Vaccine Aged Out N o longer eligible based on patient's age to complete this topic Meningococcal B Vaccine Aged Out No l onger eligible based on patient's age to complete this topic Varicella Vaccines Aged Out No longer eligible based on patient's age to complete this topic Procedures Procedure Name Priority Date/Time Associated Diagnosis Comments MICROALBUMIN CREATININE URINE RATIO Routine 11/12/2024 1:26 PM EDT Type 2 diabetes mellitus without complication, without long-term current use of insulin (CMS/HCC V24, CMS/HCC V28) CBC WITH AUTO DIFFERENTIAL Routine 11/12/2024 1:18 PM EDT Preop examination HEMOGLOBIN A1C Routine 11/12/2024 1:18 PM EDT Type 2 diabetes mellitus without complication, without long-term current use of insulin (CMS/HCC V24, CMS/[facility] V28) LIPID PANEL WITH REFLEX TO DIRECT LDL Routine 11/12/2024 1:18 PM EDT Hyperlipidemia, unspecified hyperlipidemia type CBC AND DIFFERENTIAL Routine 11/12/2024 1:18 PM EDT Preop examination HEMOGLOBIN A1C Routine 11/06/2024 1:46 PM EDT Type 2 diabetes mellitus without complication, without long-term current use of insulin (CMS/HCC V24, CMS/[facility] V28) LIPID PANEL WITH REFLEX TO DIRECT LDL Routine 11/06/2024 1:46 PM EDT Hyperlipidemia, unspecified hyperlipidemia type MICROALBUMIN CREATININE URINE RATIO Routine 11/06/2024 1:46 PM EDT Type 2 diabetes mellitus without complication, without long-term current use of insulin ([facility] V24, CMS/HCC V28) BASIC METABOLIC PANEL Routine 11/06/2024 1:46 PM EDT Controlled type 2 diabetes mellitus with other diabetic kidney complication, without long-term current use of insulin (CMS/HCC V24, CMS/HCC V28) Essential hypertension, benign Hyperlipidemia with target LDL less than 100 HEPATITIS C ANTIBODY Routine 03/06/2024 8:40 AM EST Need for hepatitis C screening test HIV 1, 2 ANTIBODY, P24 ANTIGEN WITH REFLEX TO DIFFERENTIATION Routine 03/06/2024 8:40 AM EST Annual physical exam Type II diabetes mellitus with neurological manifestations (CMS/HCC V24, CMS/HCC V28) Essential hypertension, benign Prostate enlargement Hyperlipidemia with target LDL less than 100 Encounter for screening for cardiovascular disorders Encounter for screening for malignant neoplasm of colon Encounter for screening for malignant neoplasm of prostate Need for hepatitis C screening test DIABETES EYE EXAM Routine 05/26/2023 DIABETES FOOT EXAM Routine 02/08/2023 from Last 3 Months or Most Recently Relevant to Health Maintenance Results * Microalbumin creatinine urine ratio (11/12/2024 1:26 PM EDT) Only the most recent of2 resultswithin the time period is included. Creatinine, Urine 138.0 mg/dL LAB CHEMISTRY METHOD 11/12/2024 6:44 PM EDT [facility] Microalb, Ur 9.2 0.0 - 29.0 mg/L LAB CHEMISTRY METHOD 11/12/2024 6:44 PM EDT [facility] Microalb/Creat Ratio 7 <30 mg/g creat LAB CHEMISTRY METHOD 11/12/2024 6:44 PM EDT [facility] Urine Urine specimen obtained by clean catch procedure / Unknown Non-blood Collection / Unknown 11/12/2024 1:26 PM EDT 11/12/2024 1:26 PM EDT us Octavia Marie MD LAB URINE ORDERABLES Final Result [facility] [address] [place] [address], [place] [phone] * (ABNORMAL) Lipid panel with reflex to direct LDL (11/12/2024 1:18 PM EDT) Only the most recent of2 resultswithin the time period is included. Cholesterol 92 0 - 200 mg/dL LAB CHEMISTRY METHOD 11/12/2024 5:41 PM EDT [facility] Triglycerides 106 0 - 150 mg/dL LAB CHEMISTRY METHOD 11/12/2024 5:41 PM EDT [facility] HDL 30(L) >=40 mg/dL LAB CHEMISTRY METHOD 11/12/2024 5:41 PM EDT [facility] LDL Calculated 41 0 - 100 mg/dL LAB CHEMISTRY METHOD 11/12/2024 5:41 PM EDT [facility] Comment:Estimated LDL Calcul ated using equation: Total cholesterol - HDL cholesterol - (Triglycerides/5) VLDL Cholesterol Ike 21.2 mg/dL LAB CHEMISTRY METHOD 11/12/2024 5:41 PM EDT [facility] Non HDL Chol. (LDL+VLDL) 62 <145 mg/dL LAB CHEMISTRY METHOD 11/12/2024 5:41 PM EDT [facility] Chol/HDL Ratio 3.1 0.0 - 4.4 LAB CHEMISTRY METHOD 11/12/2024 5:41 PM EDT [facility] Blood Venous blood specimen / Unknown Venipuncture / Unknown 11/12/2024 1:18 PM EDT 11/12/2024 1:18 PM EDT Octavia Marie MD LAB BLOOD ORDERABLES Final Result [facility] [address] [place] [address], * CBC auto differential (11/12/2024 1:18 PM EDT) WBC 7.1 4.8 - 10.8 K/mcL LAB HEMETOLOGY METHOD 11/12/2024 5:07 PM EDT [facility] RBC 5.20 4.50 - 5.50 M/mcL LAB HEMETOLOGY METHOD 11/12/2024 5:07 PM EDT [facility] Hemoglobin 14.1 13.5 - 17.5 g/dL LAB HEMETOLOGY METHOD 11/12/2024 5:07 PM EDT [facility] Hematocrit 44.1 42.0 - 54.0 % LAB HEMETOLOGY METHOD 11/12/2024 5:[address] [facility] MCV 84.5 79.0 - 98.0 FL LAB HEMETOLOGY METHOD 11/12/2024 5:[address] [facility] MCH 27.0 27.0 - 32.0 pcg LAB HEMETOLOGY METHOD 11/12/2024 5:[address] [facility] MCHC 32.0 32.0 - 37.0 g/dL LAB HEMETOLOGY METHOD 11/12/2024 5:[address] [facility] RDW 13.0 11.0 - 15.0 % LAB HEMETOLOGY METHOD 11/12/2024 5:[address] [facility] Platelets 197 130 - 400 K/mcL LAB HEMETOLOGY METHOD 11/12/2024 5:[address] [facility] MPV 10.5 7.0 - 11.0 FL LAB HEMETOLOGY METHOD 11/12/2024 5:[address] [facility] NRBC 0.0 <1.0 % LAB HEMETOLOGY METHOD 11/12/2024 5:[address] [facility] NRBC Absolute 0.00 <0.10 K/mcL LAB HEMETOLOGY METHOD 11/12/2024 5:[address] [facility] Neutrophils Relative 59.1 % LAB HEMETOLOGY METHOD 11/12/2024 5:[address] [facility] Lymphocytes Relative 26.6 % LAB HEMETOLOGY METHOD 11/12/2024 5:[address] [facility] Monocytes Relative 10.9 % LAB HEMETOLOGY METHOD 11/12/2024 5:[address] [facility] Eosinophils Relative 2.5 % LAB HEMETOLOGY METHOD 11/12/2024 5:07 PM EDT [facility] Basophils Relative 0.6 % LAB HEMETOLOGY METHOD 11/12/2024 5:07 PM EDT [facility] Immature Granulocytes Relative 0.3 % LAB HEMETOLOGY METHOD 11/12/2024 5:07 PM EDT [facility] Neutrophils Absolute 4.17 1.50 - 7.00 K/mcL LAB HEMETOLOGY METHOD 11/12/2024 5:07 PM EDT [facility] Lymphocytes Absolute 1.88 1.00 - 5.00 K/mcL LAB HEMETOLOGY METHOD 11/12/2024 5:07 PM EDT [facility] Monocytes Absolute 0.77 0.20 - 1.00 K/mcL LAB HEMETOLOGY METHOD 11/12/2024 5:07 PM EDT [facility] Eosinophils Absolute 0.18 0.00 - 0.50 K/mcL LAB HEMETOLOGY METHOD 11/12/2024 5:07 PM EDT [facility] Basophils Absolute 0.04 0.00 - 0.20 K/mcL LAB HEMETOLOGY METHOD 11/12/2024 5:07 PM EDT [facility] Immature Granulocytes Absolute 0.02 0.00 - 0.03 K/mcL LAB HEMETOLOGY METHOD 11/12/2024 5:07 PM EDT [facility] Blood Venous blood specimen / Unknown Venipuncture / Unknown 11/12/2024 1:18 PM EDT 11/12/2024 1:18 PM EDT us Octavia Marie MD LAB BLOOD ORDERABLES Final Result [facility] [address] [place] [address], * (ABNORMAL) Hemoglobin A1c (11/12/2024 1:18 PM EDT) Only the most recent of2 resultswithin the time period is included. Pathologist [facility] Hemoglobin A1C 6.5(H) <6.5 % LAB CHEMISTRY METHOD [facility] Mean Bld Glu Estim. 140 mg/dL LAB CHEMISTRY METHOD 11/12/2024 8:[address] [facility] Blood Venous blood specimen / Unknown Venipuncture / Unknown 11/12/2024 1:18 PM EDT 11/12/2024 1:18 PM EDT us Octavia Marie MD LAB BLOOD ORDERABLES Final Result [facility] [address] [place] [address], [place] [phone] * (ABNORMAL) Basic metabolic panel (11/06/2024 1:46 PM EDT) [facility] Sodium 139 133 - 145 mmol/L LAB CHEMISTRY METHOD 11/06/2024 4:[address] [facility] Potassium 3.9 3.5 - 5.5 mmol/L LAB CHEMISTRY METHOD 11/06/2024 4:[address] [facility] Chloride 107 96 - 110 mmol/L LAB CHEMISTRY METHOD 11/06/2024 4:[address] [facility] CO2 28 21 - 32 mmol/L LAB CHEMISTRY METHOD 11/06/2024 4:[address] [facility] Anion Gap 4 3 - 11 LAB CHEMISTRY METHOD 11/06/2024 4:[address] [facility] Glucose 114(H) 70 - 100 mg/dL LAB CHEMISTRY METHOD 11/06/2024 4:[address] [facility] BUN 16 5 - 25 mg/dL LAB CHEMISTRY METHOD 11/06/2024 4:[address] [facility] Creatinine 1.02 0.70 - 1.30 mg/dL LAB CHEMISTRY METHOD 11/06/2024 4:52 PM EDT [facility] eGFR 83 >=60 mL/min/1. 73m2 LAB CHEMISTRY METHOD 11/06/2024 4:52 PM EDT [facility] Comment:Calculation based on the Chronic Kidney Disease Epidemiology Collaboration (CKD-EPI) equation refit without adjustment for race. BUN/Creatinine Ratio 15.7 LAB CHEMISTRY METHOD 11/06/2024 4:52 PM EDT [facility] Calcium 9.2 8.5 - 10.5 mg/dL LAB CHEMISTRY METHOD 11/06/2024 4:52 PM EDT [facility] Blood Venous blood specimen / Unknown Venipuncture / Unknown 11/06/2024 1:46 PM EDT 11/06/2024 1:46 PM EDT Kam Sanchez COMPUTER SYSTEMS DESIGNER LAB BLOOD ORDERABLES Final R esult Performing Organization Address City/[facility]/ZIP Co de Phone Number [facility] [address] [place] [address], [place] [phone] * Hepatitis C antibody (03/06/2024 8:40 AM EST) [facility] Hepatitis C Antibody Negative Negative LAB CHEMISTRY METHOD 03/06/2024 2:12 PM EST [facility] Blood Venous blood specimen / Unknown Venipuncture / Unknown 03/06/2024 8:40 AM EST 03/06/2024 8:40 AM EST Kam Sanchez COMPUTER SYSTEMS DESIGNER LAB BLOOD ORDERABLES Final R esult [facility] [address] [place] [address], [place] [phone] * HIV 1,2 antibody, p24 antigen with reflex to differentiation (03/06/2024 8:40 AM EST) Pathologist [facility] HIV Combo AB/AG Negative Negative LAB CHEMISTRY METHOD 03/06/2024 2:13 PM EST [facility] Blood Venous blood specimen / Unknown Venipuncture / Unknown 03/06/2024 8:40 AM EST 03/06/2024 8:40 AM EST Narrative [facility] - 03/06/2024 2:13 PM EST This assay is a 4th generation assay allowing for earlier detection of HIV infection by detecting the presence of the HIV-1 p24 antigen as well as the traditional antibodies to HIV type 1 (including group O) and type 2. Use of a 4th generation assay is the current CDC recommendation for HIV screening. Kam Sanchez COMPUTER SYSTEMS DESIGNER LAB BLOOD ORDERABLES Final R esult [facility] [address] [place] [address], * Diabetes Eye Exam (05/26/2023) [facility] Diabetes: Annual Retina Eye Exam Abstracted Historical Provider HEALTH MAINTENANCE Final Result * Diabetes Foot Exam (02/08/2023) [facility] Diabetes: Annual Foot Exam Abstracted Historical Provider HEALTH MAINTENANCE Final Result from Last 3 Months or Most Recently Relevant to Health Maintenance Insurance [facility] Care Teams Lehr Operator Relationship Specialty Start Date End Date Octavia Marie MD [address] [place] [address] PCP - General 01/19/24
--- OUTSIDE RECORDS SUMMARY | 2024-12-02 05:10 | XMS_ITS | Encounter Summary ---
Author Organization [facility] Address [address] [facility] [address] [place] [address] Care Team Providers Care Cloth Bleaching Range Back Tender Name Role Phone Unavailable Primary Care Provider Unavailabl e Encounter Details Date Type Department Care Team (Latest Contact Info) Description 05/29/2019 Abstract C CONVERSIONS Dental, Provider, DDS Social History Tobacco Use Types Packs/Day Years Used Date Smoking Tobacco: Never Assessed Sex and Gender Information Value Date Recorded Sex Assigned at Male 01/31/2022 10:19 AM EDT Legal Sex Male 10:19 AM EDT Gender Identity Choose not to disclose 10:19 AM EDT Sexual Orientation Choose not to disclose 2021 10:19 AM EDT documented as of this encounter Plan of Treatment Not on file documented as of this encounter Visit Diagnoses Not on filedocumented in this encounter
--- OUTSIDE RECORDS SUMMARY | 2024-12-02 05:10 | XMS_ITS ---
Author Name [facility] Organization Unknown Care Team Organization Name Specialty Phone Email Start Date End Da te [facility] Juany Gongora MD Primary Care 09/09/2022 11/20/2023 [facility] Bria Camarillo Primary Care 04/11/2022
--- OUTSIDE RECORDS SUMMARY | 2024-12-02 05:10 | XMS_ITS | Encounter Summary ---
Author Organization [facility] Address [address] [place] [address] Care Team Providers Care Contract Associate Manager Name Role Phone Unavailable Primary Care Provider Unavailabl e Encounter Details Date Type Department Care Team (Late st Contact Info) Description 03/28/2023 Abstract [facility] [address] [place] [address] Nithya Neville [address] [place] [address] Social History Tobacco Use Types Packs/Day Years Used Date Smoking Tobacco: Former Cigarettes Smokeless Tobacco: Never Sex and Gender Information Value Date Recorded [...]
--- OUTSIDE RECORDS SUMMARY | 2024-12-02 05:10 | XMS_ITS | Encounter Summary ---
Author Organization [employer] [facility] Address [address] [place] [address] Care Team Providers Care Real Estate Listing Consultant Name Role Phone Unavailable Primary Care Provider Unavailabl e Encounter Details Date Type Department Care Team (Late st Contact Info) Description 01/25/2023 Abstract [facility] ADULT DENT[facility] [address] [place] [address] Nithya Neville [address] [place] [address] Social History Tobacco Use Types Packs/Day Years [...]
--- OUTSIDE RECORDS SUMMARY | 2024-12-02 05:10 | XMS_ITS | Encounter Summary ---
Author Organization [facility] Address [address] [place] [address] Care Team Providers Care Feller Operator Name Role Phone Unavailable Primary Care Provider Unavailabl e Encounter Details Date Type Department Care Team (Latest Contact Info) Description 03/25/2021 Abstract [facility] Dental, Provider, DDS Social History Tobacco [...]
--- OUTSIDE RECORDS SUMMARY | 2024-12-02 05:10 | XMS_ITS | Encounter Summary ---
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
[2024-12-02 05:41] LABS: Hematocrit 40.3 % (42.0-52.0); Hemoglobin 14.1 g/dl (14.0-18.0); Imm Gran Abs Auto 0.05 X10*3/uL (0.00-0.03); Imm Gran Pct Auto 0.5 % (0.0-0.4); Lymphocytes Absolute Auto 2.0 X10*3/uL (1.2-4.9); MANUAL DIFF FLAG NO; Mean Corpuscular HGB Conc 35.0 g/dl (31.0-36.0); Mean Corpuscular Hemoglobin 27.6 pg (27.0-33.0); Mean Corpuscular Volume 78.9 fL (80.0-98.0); NRBC Abs Auto 0.000 X10*3/uL (0.0-0.012); NRBC Pct Auto 0.0 /100WBC (0.0-0.2); Platelet Count 177 X10*3/uL (160-400); Red Blood Count 5.11 X10*6/uL (4.60-5.80); White Blood Count 10.1 X10*3/uL (4.8-10.8)
[2024-12-02 05:51] VITALS: BP 99/57; PULSE 60; RESP 19; TEMP 36.7; O2SAT 98
[2024-12-02 05:57] LABS: Alanine Aminotransferase 26 U/L (0-40); Albumin Level 4.1 g/dL (3.5-5.0); Alkaline Phosphatase 59 U/L (39-117); Anion Gap 15 (12-20); Aspartate Amino Transferase 22 U/L (5-37); Blood Urea Nitrogen 23 mg/dL (9-16); Calcium 9.5 mg/dL (8.4-10.2); Carbon Dioxide 23 mmol/L (22-29); Chloride 105 mmol/L (96-108); Creatinine Clr Calc Pharmacy 65.9; Estimated Glomerular Filt Rate > 60; Potassium 3.4 mmol/L (3.3-5.1); Sodium 140 mmol/L (135-145); Total Protein 6.9 g/dL (6.5-8.0)
[2024-12-02 06:03] LABS: Troponin-I High Sensitivity 11.0 ng/L (<3.5-35.0)
--- NOTE | 2024-12-02 06:09 | ED_ITS ---
HPI - Chest Pain General Chief Complaint: Chest Pain Stated Complaint: chest tightness + sob Time Seen by Provider: 12/02/24 06:09 Source: patient Mode of arrival: ambulatory Limitations: no limitations History of Present Illness ED Provider: HPI narrative: This is a 64-year-old male complaining of shortness of breath which is exertional and states has been present for years, also left-sided chest tightness that has been occurring for also weeks or months, he states he has been seen for this in the past, he had left eye surgery and states that he thinks his chronic symptoms has been exacerbated since then. No fevers or chills, no hemoptysis, no nausea no vomiting no diarrhea no drug use reported. He states he has chronic dizziness as well he describes this as a spinning sensation. Related Data Previous Rx's ?Medication ?Instructions ?Recorded acetaminophen 500 mg tablet 500 mg PO Q6H PRN fever or pain 08/03/22 (Tylenol Extra Strength) #14 tabs lidocaine 5 % topical patch 1 patch topical DAILY PRN pain #30 08/03/22 (Lidoderm) ea naproxen 500 mg tablet 500 mg PO BID PRN pain 10 da ys #20 08/03/22 tabs fluticasone furoate 27.5 1 spray intranasal DAILY #5. 9 mL 02/28/23 mcg/actuation nasal spray,suspension azithromycin 250 mg tablet See Rx Instructions PO .COM PLEX #6 03/07/23 tabs doxylamin 12.5 mg-PSE 10 mg-DM 20 1 packet PO Q4H #6 e a 11/10/24 mg-acetaminophen 650 mg oral pwdr pk ([place] Plus Cold-Flu) fluticasone propionate 50 1 spray intranasal BID #16 g oscar 11/10/24 mcg/actuation nasal spray,suspension (Flonase Allergy Relief) meclizine 12.5 mg tablet 12.5 mg PO TID PRN vertigo 5 days 12/02/24 #20 tabs Allergies Allergy/AdvReac Type Severity Reaction Status Date / Time No Known Allergies Allergy Verified 12/02/24 04:54 Review of Systems 2 Constitutional: Constitutional: Reports as per HPI [facility] Past Medical History Medical History Blindness of left eye Diabetes Hypertension Social History Social History Smoked in Last 30 Days: No Use of substances other than those prescribed or required for medical reasons: No Advance Directives: No Advance Directives Information Provided: Yes Do you have a plan to hurt others: No Plan Physical Exam 2 Vital Signs: Vital Signs: Last Vital Signs Temp 98.1 F 12/02/24 05:51 Pulse 60 12/02/24 05:51 Resp 19 12/02/24 05:51 BP 99/57 L 12/02/24 05:51 Pulse Ox 98 12/02/24 05:51 O2 Del Method Room Air 12/02/24 05:51 BMI result Body Mass Index 26.3 Const: Other: * Gen: ?Overall well-appearing patient * HEENT: PERRLA right eye, left eye is cloudy, EOMI, MMM, * Neck: Supple, no LAD * CV: RRR, no obvious murmurs appreciated, radial pulses +2 bilaterally * Resp: ?No wheezing rales rhonchi no stridor moving air well * Abd: ?Bowel sounds are present, no tenderness no rebound no rigidity * MSK: FROM, strength 5/5 all extremities * Skin: Warm, dry, intact, * Neuro: ?Alert and oriented x3, moving upper and lower extremities symmetrically, no obvious facial asymmetry noted, no nystagmus vertical rotary or horizontal, no dysmetria upper or lower extremities Medications Administered Discontinued Medications Generic Name Dose Route Start Last Admin Trade Name Freq PRN Reason Stop Dose Admin Scopolamine 1.5 mg 12/02/24 06:31 12/02/24 06:42 Scopolamine 1.5 Mg Patch.Td.3 EAR-BEHIND 12/02/24 06:32 1.5 mg ONCE ONE Administration Medical Decision Making Medical Decision Making MDM Narrative: Patient is presenting with chest pain, this is sounding to be chronic, considerations include as below, stable angina is another consideration, his workup today included chest x-ray without consolidations, mediastinal widening, he has no hypoxia tachycardic to suspect PE, cardiac enzymes and EKG unremarkable to suspect ACS, he has chronic vertigo without any findings to suspect cerebral stroke or peripheral vertigo I did provide scopolamine as he reports spinning sensation, otherwise his workup has been reassuring and I will anticipate discharge and follow up with the PCP, his initial blood pressure was 99/57, which has a MAP of 71, and on repeat BP with MAP of 78 Differential Diagnosis Differential Diagnoses: The differential diagnosis associated with the presentation includes (ACS, pneumothorax, aortic dissection, PE, Boerhaave syndrome) Admission/Observation Consideration of admission/observation: Escalation of care including admission/observation considered Lab Data MDM Lab Attestation statement: I reviewed the patient's lab results. 12/02/24 05:37 12/02/24 05:37 Labs: Lab Results 12/02/24 Range/Units 05:37 WBC 10.1 (4.8-10.8) X10*3/uL RBC 5.11 (4.60-5.80) X10*6/uL Hgb 14.1 (14.0-18.0) g/dl Hct 40.3 L (42.0-52.0) % MCV 78.9 L (80.0-98.0) fL MCH 27.6 (27.0-33.0) pg MCHC 35.0 (31.0-36.0) g/dl RDW 13.2 (11.0-16.0) % Plt Count 177 (160-400) X10*3/uL MPV 9.1 L (9.4-12.4) fL Immature Gran % (Auto) 0.5 H (0.0-0.4) % Neut % (Auto) 69.4 (45-73) % Lymph % (Auto) 20.2 (20-40) % Door % (Auto) 8.0 (2-11) % Eos % (Auto) 1.5 (0-4) % Baso % (Auto) 0.4 (0-2) % Lymph # (Auto) 2.0 (1.2-4.9) X10*3/uL Door # (Auto) 0.8 (0.1-1.2) X10*3/uL Eos # (Auto) 0.2 (0.0-0.4) X10*3/uL Baso # (Auto) 0.0 (0.0-0.2) X10*3/uL Abs Immat Gran (auto) 0.05 H (0.00-0.03) X10*3/uL Absolute Neuts (auto) 7.0 (2.0-8.3) x10*3/uL Absolute Nucleated RBC 0.000 (0.0-0.012) X10*3/uL Nucleated RBC % (auto) 0.0 (0.0-0.2) /100WBC Sodium 140 (135-145) mmol/L Potassium 3.4 (3.3-5.1) mmol/L Chloride 105 (96-108) mmol/L Carbon Dioxide 23 (22-29) mmol/L Anion Gap 15 (12-20) BUN 23 H (9-16) mg/dL Creatinine 1.11 (0.5-1.4) mg/dL Estim Creat Clear Calc 65.9 Estimated GFR > 60 Random Glucose 108 (60-115) mg/dL Calcium 9.5 (8.4-10.2) mg/dL Total Bilirubin 0.7 (0.0-1.0) mg/dL AST 22 (5-37) U/L ALT 26 (0-40) U/L Alkaline Phosphatase 59 (39-117) U/L Troponin I High Sens 11.0 (<3.5-35.0) ng/L Total Protein 6.9 (6.5-8.0) g/dL Albumin 4.1 (3.5-5.0) g/dL Independent Interpretation I performed an independent interpretation of an: EKG (76 beats per minute otherwise normal ECG without dysrhythmia, AV tatyana blocks or ST-T changes to suspect underlying ACS, my independent interpretation) and Plain X-Ray (My independent chest xray interpretation: Lungs: Lungs are clear bilaterally without evidence of focal consolidation, pleural effusion, or pneumothorax. Cardiac silhouette is unremarkable, no obvious mediastinal widening, no obvious bony abnormalities such as fractures. Impression: Normal chest X-r) Radiology Impression Discussion of test interpretation with radiology: I have reviewed the radiologist's reading. Prescription Management I considered prescription management with: Pain Medication Chronic Conditions Patient?s care impacted by: Diabetes and Hypertension Discharge Plan Discharge Clinical Impression: Chest pain, precordial, Dizziness Patient Disposition: Home, Self-Care Instructions: Chest Pain (ED), Dizziness (ED) Additional Instructions: You had a fairly extensive workup today included EKG, blood work, cardiac enzymes, I has been reassured by your heart rate, vital signs, you have no fevers, you have chronic issues and I would like you to follow up with the PCP, you can continue taking meclizine as needed for possible vertigo, and keeps scopolamine patch applied in the ER for the next 3 days maybe help you with your symptoms if it does communicate that to your PCP See my general discharge instructions as below Diagnosis and Initial Evaluation: You have been evaluated in the Emergency Department (ED) for chest pain. Based on your clinical assessment, electrocardiogram (ECG), and high-sensitivity cardiac troponin (hs-cTn) levels, you have been classified as low-risk for acute coronary syndrome (ACS) and myocardial infarction (RI). This means that your likelihood of having a heart attack or other serious heart condition in the next 30 days is very low. Follow-Up Care: ? Primary Care Provider (PCP) or Special Inspector: It is important to follow up with your primary care provider or billet straightener within the next 14 to 30 days. This follow-up is crucial to ensure that any underlying conditions are managed appropriately and to discuss any further testing that may be needed. ? Notification: If you have an established PCP or billet straightener, they have been notified of your ED visit to facilitate continuity of care. Self-Care and Monitoring: ? Medications: Continue taking any prescribed medications as directed. If you have been given new medications, ensure you understand how and when to take them. ? Activity: Resume normal activities as tolerated. Avoid strenuous activities until you have discussed them with your healthcare provider. ? Diet: Maintain a heart-healthy diet, low in saturated fats, cholesterol, and sodium. Red Flags: Seek immediate medical attention if you experience any of the following: ? New or worsening chest pain ? Shortness of breath ? Dizziness or fainting ? Pain radiating to your arm, neck, or jaw ? Sweating, nausea, or vomiting Additional Testing: In some cases, outpatient testing such as a stress test or imaging may be recommended to further evaluate your heart health. Your follow-up provider will discuss this with you if necessary. Mental Health: Anxiety and stress can contribute to chest pain. Consider discussing any concerns with your healthcare provider, who may recommend screening for anxiety or depression and appropriate management strategies. Contact Information: If you have any questions or concerns before your follow-up appointment, please contact your healthcare provider or the ED where you were evaluated. Summary: You have been discharged from the ED with a low risk of serious heart conditions. Follow the instructions above, attend your follow-up appointments, and seek immediate care if you experience any red flags. Prescriptions: New meclizine 12.5 mg tablet 12.5 mg PO TID PRN (Reason: vertigo) 5 Days Qty: 20 0RF No Action acetaminophen [Tylenol Extra Strength] 500 mg tablet 500 mg PO Q6H PRN (Reason: fever or pain) Qty: 14 0RF lidocaine [Lidoderm] 5 % adhesive patch,medicated 1 patch topical DAILY MDD remove after 12 hours PRN (Reason: pain) Qty: 30 0RF Rx Instructions: leave on most painful area for up to 12 hrs naproxen 500 mg tablet 500 mg PO BID PRN (Reason: pain) 10 Days Qty: 20 0RF azithromycin 250 mg tablet See Rx Instructions PO .COMPLEX Qty: 6 0RF Rx Instructions: For 250 mg dose pack: take 500 mg today (day 1), then 250 mg for 4 days (days 2-5) fluticasone furoate 27.5 mcg/actuation spray,suspension 1 spray intranasal DAILY Qty: 5.9 1RF Rx Instructions: into each nostril [place] Plus Cold-Flu 12.5-10-20-650 mg powder in packet 1 packet PO Q4H Qty: 6 0RF Rx Instructions: DNExceed 5 doses/24h fluticasone propionate [Flonase Allergy Relief] 50 mcg/actuation spray,suspension 1 spray intranasal BID Qty: 16 0RF Rx Instructions: administer into each nostril Print Language: Nepalese
[2024-12-02 07:04] VITALS: BP 97/69
[2024-12-02 07:44] VITALS: BP 106/65; PULSE 65; RESP 18; TEMP 36.6; O2SAT 98
[2024-12-02 07:45] VITALS: BP 106/65; PULSE 65; RESP 18; TEMP 36.6; O2SAT 98
== END 2024-12-02 07:45 | disposition home or self-care (01) ==
PROVIDERS: Emergency Provider Emergency Medicine
DX: R42 Dizziness and giddiness (principal); R07.9 Chest pain, unspecified; R07.2 Precordial pain; R06.02 Shortness of breath
CPT/HCPCS: 36415; 71046; 80053; 84484; 85025; 93005; 99283; 99285

== ENCOUNTER → 2024-12-02 04:32 | Outpatient (BNV) | payer OTHER, SELFPAY | PROVIDERS: Emergency Provider Emergency Medicine; Visit Provider Internal Medicine Cardiovascular Disease | DX: R06.02 Shortness of breath (principal); R07.9 Chest pain, unspecified | CPT/HCPCS: 93010 ==

== ENCOUNTER → 2024-12-02 06:31 | Outpatient (BNV) | payer OTHER, SELFPAY | PROVIDERS: Emergency Provider Emergency Medicine; Visit Provider Radiology Diagnostic Radiology | DX: R07.9 Chest pain, unspecified (principal) | CPT/HCPCS: 71046 ==

== ENCOUNTER 2024-12-09 06:22 | Emergency (ER) | payer OTHER, SELFPAY ==
--- OUTSIDE RECORDS SUMMARY | 2024-12-06 08:30 | XMS_ITS | Encounter Summary ---
Author Organization [place] [address] Care Team Providers Care License Examiner Name Role Phone Octavia Marie MD Primary Care Provider [phone] Reason for Referral * Therapy (Routine) - Pending Review Specialty Diagnoses / Procedures Referred By Bigg valdez Referred To Contact Pulmonology Diagnoses SOB (shortness of breath) Procedures Pulmonary function testing: Bronchial Challenge with Methacholine, Spirometry, Spirometry with Bronchodilator, Sputum Induction, Vital Capacity Test Octavia Marie MD [address] [place], [place] [address] [address] Phone: tel: [facility]: [facility] [address] [place] [address] Phone: tel: fax: Referral ID Status Reason Start Date Expiration Date V isits Requested Visits Authorized [id number] Pending Review 12/06/2024 12/06/2025 1 1 * Imaging (Routine) - Pending Review Specialty Diagnoses / Procedures Referred By Bigg valdez Referred To Contact Cardiology Diagnoses Dizziness Procedures Transthoracic echocardiogram (TTE) complete with PRN contrast, bubble, strain, and 3D order panel LA TTE W 2D IMAGE COMPLETE W DOPPLER ECHO & COLOR FLOW DOPPLER ECHO LA BOBBY 2D COMPLETE W/CONTRAST OR W & WO CONTRAST WITH DOPPLER Octavia Marie MD [address] [place] [address] Phone: tel: fax: [facility] Referral ID Status Reason Start Date Expiration Date V isits Requested Visits Authorized [id number] Pending Review 12/06/2024 12/06/2025 1 1 * Consultation (Routine) - Pending Review Specialty Diagnoses / Procedures Referred By Bigg valdez Referred To Contact Cardiology Diagnoses Dizziness Octavia Marie MD [address] [place] [address] Phone: tel: fax: Referral ID Status Reason Start Date Expiration Date Visits Requested Visits Authorized [id number] Pending Review Specialty Services Required 12/06/2024 12/06/2025 1 1 Reason for Visit * Reason Comments Follow-up [facility] ER f/u - chest p ain Encounter Details Date Type Department Care Team (Late st Contact Info) Description 12/06/2024 8:30 AM EDT Office Visit Adult Medicine [facility] [place] [place] [address] [place] [phone] Octavia Marie MD [address] [place] [address] Dizziness (Primary Dx); Elevated BUN; Type 2 diabetes mellitus with other specified complication, unspecified whether residential insulin use (CMS/HCC V24, CMS/HCC V28); Essential hypertension, benign; Hyperlipidemia with target LDL less than 100; SOB (shortness of breath) Social History Tobacco Use Types Packs/Day Years Used Date Smoking Tobacco: Former Cigarettes Q uit: 04/03/1992 Smokeless Tobacco: Never Alcohol Use Standard Drinks/Week Comments Not Currently 0 (1 standard drink = 0.6 oz pur e alcohol) Sex and Gender Information Value Date Recorded Sex Assigned at Not on file Legal Sex Male 11:46 PM EST Gender Identity Not on file Sexual Orientation Not on file documented as of this encounter Last Filed Vital Signs Vital Sign Reading Time Taken Comments Blood Pressure 113/60 12/06/2024 8:20 AM EDT Pulse 62 12/06/2024 8:20 AM EDT Temperature 36.2 C (97.2 F) 12/06/2024 8:20 AM EDT Respiratory Rate 12 12/06/2024 8:20 AM EDT Oxygen Saturation - - Inhaled Oxygen Concentration - - Weight 78 kg (172 lb) 12/06/2024 8:20 AM EDT Height 172.7 cm (5' 8 ) 12/06/2024 8:20 AM EDT Body Mass Index 26.15 12/06/2024 8:20 AM EDT documented in this encounter Progress Notes * Octavia Marie MD - 12/06/2024 8:30 AM EDT CHIEF COMPLAINT: Follow-up ([facility] ER f/u - chest pain) IDENTIFIER: Holland Washburn is a 64 y.o. old male. HPI: History of Present Illness The patient presents for an ER follow-up. He reports feeling better overall but experiences fatigue upon waking. He has been hospitalized twice, once due to vomiting during an eye doctor's visit, which led to a hospital admission. During this stay, he was given medication for his eye pressure and underwent a scan due to dizziness. He also experienced body aches and chest pain. His heart rate was noted to be low at 50 beats per minute during his first hospital visit. He has no history of heart failure. He has a scheduled appointment with an ENT specialist in 04/2025. He has a follow-up appointment with his data librarian. He is currently on meclizine for dizziness, which he takes as needed. He does not smoke or consume alcohol. He r ecalls nearly fainting during a previous operation under anesthesia. He occasionally experiences difficulty breathing and fatigue. He believes he had a lung x-ray in the past. He is on metformin 1000 mg twice daily for diabetes. His diabetes is considered controlled with an A1c of 6.5%. He is on hydrochlorothiazide 25 mg daily and lisinopril 20 mg daily for blood pressure. He is on statin 20 mg for high cholesterol. Alcohol: He does not consume alcohol. Tobacco: He does not smoke cigarettes. ROS: The remainder of review of systems is noncontributory. PAST MEDICAL HISTORY: Patient Active Problem List Diagnosis Date Noted Type 2 diabetes mellitus with other specified complication ([facility] V24, [facility] V28) 11/12/2024 Primary hypertension 11/12/2024 Adjustment disorder with depressed mood 04/26/2019 Type II diabetes mellitus with neurological manifestations ([facility] V24, [facility] V28) 01/18/2019 Renal cyst 04/09/2018 Prostate enlargement 12/29/2016 Blindness of left eye 09/24/2015 Diastasis recti 03/20/2015 Low HDL (under 40) 02/18/2015 Lipoma of breast 02/19/2014 Breast mass in male 02/12/2014 Hand pain 12/30/2013 Microalbuminuria 06/07/2013 DM (diabetes mellitus) type II controlled with renal manifestation ([facility] V24, [facility] V28) 08/08/2012 Allergic rhinitis 06/27/2012 Essential hypertension, benign 06/27/2012 Depression 10/01/2010 Hyperlipidemia with target LDL less than 100 03/06/2008 Chest pain, unspecified 02/27/2008 Obesity, unspecified 02/27/2008 Premature ejaculation 02/27/2008 SOCIAL HISTORY: Social History Tobacco Use Smoking status: Former Current packs/day: 0.00 Types: Cigarettes Quit date: 04/03/1992 Years since quittin.6 Smokeless tobacco: Never Substance Use Topics Alcohol use: Not Currently FAMILY HISTORY: Family Status Relation Name Status Mother Alive Father Alive Brother (Not Specified) Sister (Not Specified) Neg Hx (Not Specified) Brother Alive Brother Alive Sister Alive Sister Alive Sister Alive Sister Alive No partnership data on file Family History Problem Relation Name Age of Onset Diabetes Mother Hypertension Mother CABG Mother Hypertension Father Prostate cancer Father Diabetes Brother Diabetes Sister Blindness Neg Hx Cataracts Neg Hx Glaucoma Neg Hx Macular degeneration Neg Hx Strabismus Neg Hx ACTIVE MEDICATIONS: Outpatient Medications Marked as Taking for the 12/06/24 encounter (Office Visit) with Octavia Marie MD Medication Sig Dispense Refill acetic acid-hydrocortisone (VOSOL-HC) otic solution Administer 3 drops into each ear 3 (three) times a day. 5 mL 0 ammonium lactate (AmLactin) 12 % lotion Apply topically if needed for dry skin. 400 g 2 ammonium lactate (LAC-HYDRIN) 12 % lotion APPLY TO SOLES OF FEET DAILY. AT NIGHT WEAR SOCKS TO BED Strength: 12 % Autolet (OneTouch Delica Plus Lanc Dev) lancing device Use as instructed once daily 1 each 0 Autolet lancing device Use 1 - 4 times daily as instructed 100 each 11 bisacodyL (DULCOLAX) 5 mg EC tablet Take 2 tablets by mouth right before beginning bowel prep. See instructions provided by the office 2 tablet 0 blood sugar diagnostic (FreeStyle Lite Strips) test strip USE TO TEST BLOOD SUGAR ONCE DAILY 100 strip 1 ciclopirox (PENLAC) 8 % solution Apply daily to nails clean medication residue off of nail plate every 3 days with rubbing alcohol famotidine (PEPCID) 40 mg tablet TAKE 1 TABLET BY MOUTH 2 TIMES DAILY NEEDED FOR GERD 180 tablet1 FreeStyle Lancets 28 gauge lancets USE TO TEST BLOOD SUGAR ONCE DAILY 100 each 1 FreeStyle Lite Meter monitoring kit USE TO TEST BLOOD SUGAR ONCE DAILY 1 each 0 hydroCHLOROthiazide (HYDRODIURIL) 25 mg tablet TAKE 1 TABLET BY MOUTH EVERY DAY 90 tablet 0 isopropyl alcohoL 70 % towelette Use as directed 100 each 3 lisinopriL (PRINIVIL,ZESTRIL) 20 mg tablet TAKE 1 TABLET BY MOUTH EVERY DAY 90 tablet 1 meclizine (ANTIVERT) 12.5 mg tablet Take 1 tablet (12.5 mg total) by mouth 3 (three) times a day ifneeded for dizziness. metFORMIN (GLUCOPHAGE) 1,000 mg tablet Take 1 tablet (1,000 mg total) by mouth 2 (two) times a day with meals. 180 tablet 1 mineral oil-hydrophilic petrolatum (AQUAPHOR) ointment Apply topically if needed for dry skin. 420 g 1 OneTouch Ultra2 Meter mis USE TO MONITOR BLOOD SUGAR ONCE DAILY 1 each 0 polyethylene glycol (Golytely) 236-22.74-6.74 -5.86 gram solution Take 4L by mouth once for one dose. May substitue any PEG. Starting at 6PM the night before your procedure drink 1 8oz glasses at your own pace until you complete half of the gallon. Finish 2nd half of the gallon 5 hours before your procedure. 4000 mL 0 simvastatin (ZOCOR) 20 mg tablet TAKE 1 TABLET BY MOUTH EVERYDAY AT BEDTIME 90 tablet 1 tamsulosin (FLOMAX) 0.4 mg 24 hr capsule Take 1 capsule (0.4 mg total) by mouth 1 (one) time each day. Take 30 mins after same meal every day. Dx BPH, prescribe by urologist ALLERGIES: Clindamycin PHYSICAL EXAM: Blood pressure 113/60, pulse 62, temperature 36.2 ??C (97.2 ??F), resp. rate 12, height 1.727 m (68 ), weight 78 kg (172 lb). Body mass index is 26.15 kg/m??. BMI is greater than 25.0 (above the normal range) - see Plan Physical Exam General Appearance: Normal. Vital signs: Within normal limits. HEENT: Within normal limits. Respiratory: Clear to auscultation, no wheezing, rales or rhonchi. Cardiovascular: Regular rate and rhythm, no murmurs, rubs, or gallops. Skin: Warm and dry, no rash. Neurological: Normal. LABS: Results Labs - Complete Blood Count (CBC): Immature granulocyte slightly elevated. Blood count was fine. - Liver Function Test: Normal - Kidney Function Test: Normal - Blood Urea Nitrogen: Suggested possible dehydration - Hemoglobin A1c: 6.5% - Triglycerides: Improved IMPRESSION: 1. Dizziness 2. Elevated BUN 3. Type 2 diabetes mellitus with other specified complication, unspecified whether residential insulin use ([facility] V24, [facility] V28) 4. Essential hypertension, benign 5. Hyperlipidemia with target LDL less than 100 6. SOB (shortness of breath) PLAN: Orders Placed This Encounter Procedures Ambulatory referral to Cardiology Transthoracic echocardiogram (TTE) complete with PRN contrast, bubble, strain, and 3D order panel Pulmonary function testing: Bronchial Challenge with Methacholine, Spirometry, Spirometry with Bronchodilator, Sputum Induction, Vital Capacity Test Assessment & Plan 1. Emergency room follow-up: - His heart rate is within normal limits today. - A referral to a engraver flatware has been made due to his persistent dizziness. An echocardiogram will be ordered to assess his cardiac structure. A lung function test will be conducted to evaluate hisrespiratory health. He will be contacted regarding the scheduling of these tests. - He has been advised to maintain a daily water intake of 8 to 12 glasses. Fasting blood work will be rechecked a week prior to his next visit. 2. Diabetes mellitus: - His diabetes is considered controlled with an A1c of 6.5%. - He is currently on metformin 1000 mg twice daily. No changes to his medication regimen are necessary at this time. 3. Hypertension: - He is currently on hydrochlorothiazide 25 mg daily and lisinopril 20 mg daily for blood pressure management. 4. Hyperlipidemia: - His triglycerides were previously elevated but have since improved. - His cholesterol levels are well-managed with a simvastatin 20 mg daily. Follow-up: The patient will follow up on 03/09/2025. ADDITIONAL ORDERS: AMB REFERRAL TO CARDIOLOGY Octavia Marie MD on 12/06/2024 at 1:11 PM EDT I have obtained verbal consent from Holland Maddison prior to the recording. I have advised Holland Maddison that he may refuse the recording and require the recording to be turned off at any time during this encounter. documented in this encounter Plan of Treatment Upcoming Encounters Date Type Department Care Team (Late st Contact Info) Description 12/26/2024 8:45 AM EDT Office Visit Orthopedic Surgery [facility] [address] [phone] Willie Barth, DPM [address] [address] 01/08/2025 12:00 PM EDT Appointment Endoscopy [address] [place] [phone] Gilbert Huffman MD [address] [place] [phone] 03/04/2025 7:45 AM EST Office Visit Adult Medicine [address] [phone] Octavia Marie MD [address] [place] [phone] Scheduled Orders Name Type Priority Associated Diagnoses Order Schedule Transthoracic echocardiogram (TTE) complete with PRN contrast, bubble, strain, and 3D order panel Echocardiography Routine Dizziness 1 Occurrences starting 12/06/2024 until 12/06/2025 Pulmonary function testing: Bronchial Challenge with Methacholine, Spirometry, Spirometry with Bronchodilator, Sputum Induction, Vital Capacity Test PFT Routine SOB (shortness of breath) Ordered: 12/06/2024 Scheduled Referrals Name Type Priority Associated Diagnoses Order Schedule Ambulatory referral to Cardiology Outpatient Referral Routine Dizziness 1 Occurrences starting 12/06/2024 until 12/06/2025 documented as of this encounter Visit Diagnoses Diagnosis Dizziness- Primary Dizziness and giddiness Elevated BUN Other abnormal blood chemistry Type 2 diabetes mellitus with other specified complication, unspecified whether intermediate designer insulin use ([facility] V24, [facility] V28) Essential hypertension, benign Hyperlipidemia with target LDL less than 100 Other and unspecified hyperlipidemia SOB (shortness of breath) Shortness of breath documented in this encounter Historical Medications * This list may reflect changes made after this encounter. meclizine (ANTIVERT) 12.5 mg tablet Take 1 tablet (12.5 mg total) by mouth 3 (three) times a day if needed for dizziness. added in this encounter Additional Health Concerns Assessment Noted Time PHQ-9 Depression Total Score: 0 03/05/20 24 9:30 AM EST documented as of this encounter Care Teams License Examiner Relationship Specialty Start Date End Date Octavia Marie MD [address] [place] [address] PCP - General 01/19/24 documented as of this encounter
--- NOTE | 2024-12-09 | ECG_ITS ---
Test Reason : SOB Blood Pressure : */* mmHG Vent. Rate : 81 BPM Atrial Rate : 81 BPM P-R Int : 168 ms QRS Dur : 100 ms QT Int : 374 ms P-R-T Axes : 21 67 -8 degrees QTcB Int : 434 ms Normal sinus rhythm Inferior infarct , age undetermined Abnormal ECG When compared with ECG of 02-Dec-2024 04:32, No significant change was found Referred By: Generic ED Physician Electronically Signed By: CINTIA THAKUR MD
--- NOTE | ~2024-12-09 | XR_ITS ---
CLINICAL HISTORY: SOB 1 view chest x-ray. Comparison: CR - XR CHEST 2V - 12/02/24 06:54 EDT Findings: The lungs are adequately expanded. No focal consolidation. No effusion or pneumothorax. Cardiac and mediastinal contours are within normal limits. No acute osseous abnormality Impression: No acute process. This document has been electronically signed by: Salazar Gaitan MD on 12/09/2024 07:12:24
[2024-12-09 06:27] VITALS: BP 124/75; PULSE 82; RESP 13; TEMP 36.4; O2SAT 96; BMI 27.6
--- NOTE | 2024-12-09 06:36 | ED_ITS ---
HPI - General Adult General Chief complaint: General Medical Stated complaint: SOB, right ear pain, fatigue Time Seen by Provider: 12/09/24 06:36 Source: patient Mode of arrival: ambulatory Limitations: no limitations History of Present Illness ED Provider: HPI narrative: Patient has had multiple ER visits at this point I think this is 5th visit, also states saw his PCP, he is increasingly concerned about health and various symptoms that he is having, I saw him recently for chest pain this time he states he has had difficulty with swallowing for a long time and feels like he is losing weight, hit him mentioned that to me or any other providers and he did mentioned into his PCP. No pain waking up from sleep, no fevers or chills reported. Related Data Previous Rx's ?Medication ?Instructions ?Recorded acetaminophen 500 mg tablet 500 mg PO Q6H PRN fever or pain 08/03/22 (Tylenol Extra Strength) #14 tabs lidocaine 5 % topical patch 1 patch topical DAILY PRN pain #30 08/03/22 (Lidoderm) ea naproxen 500 mg tablet 500 mg PO BID PRN pain 10 da ys #20 08/03/22 tabs fluticasone furoate 27.5 1 spray intranasal DAILY #5. 9 mL 02/28/23 mcg/actuation nasal spray,suspension azithromycin 250 mg tablet See Rx Instructions PO .COM PLEX #6 03/07/23 tabs doxylamin 12.5 mg-PSE 10 mg-DM 20 1 packet PO Q4H #6 e a 11/10/24 mg-acetaminophen 650 mg oral pwdr pk ([place] Plus Cold-Flu) fluticasone propionate 50 1 spray intranasal BID #16 g oscar 11/10/24 mcg/actuation nasal spray,suspension (Flonase Allergy Relief) meclizine 12.5 mg tablet 12.5 mg PO TID PRN vertigo 5 days 12/02/24 #20 tabs Allergies Allergy/AdvReac Type Severity Reaction Status Date / Time No Known Allergies Allergy Verified 12/09/24 06:31 Review of Systems 2 Constitutional: Constitutional: Reports as per [facility] Past Medical History Medical History Blindness of left eye Diabetes Hypertension Social History Social History Smoked in Last 30 Days: No Use of substances other than those prescribed or required for medical reasons: No Advance Directives: No Advance Directives Information Provided: No Physical Exam ED Vital Signs: Vital Signs - 24 hr 12/09/24 06:27 Temperature 97.5 F Pulse Rate 82 Respiratory Rate 13 Blood Pressure 124/75 Pulse Oximetry 96 Oxygen Delivery Method Room Air BMI result Body Mass Index 27.6 Const Other: * Gen: ?Overall well-appearing patient * HEENT: PERRLA, EOMI, MMM, * Neck: Supple, no LAD * CV: RRR, no obvious murmurs appreciated * Resp: ?No wheezing rales rhonchi no stridor moving air well * Abd: ?Bowel sounds are present, no tenderness no rebound no rigidity * MSK: FROM, strength 5/5 all extremities * Skin: Warm, dry, intact, * Neuro: ?Alert and oriented x3, moving upper and lower extremities symmetrically, no obvious facial asymmetry noted Medical Decision Making Medical Decision Making [facility] Narrative: 7:30 AM 12/09/2024 (Dr. Phan Atkinson): Patient is overall well-appearing, not cachectic, I did not elicit red flags from him regarding abdominal pain waking him up from sleep or significant weight loss, he has been tolerating p.o. liquids and solids, has seen his PCP never mentioned his chronic symptoms of dysphagia, he has no evidence for any oropharyngeal lesions and generally ENT examination is reassuring He has been feeling quite anxious about health and he has had quite a few ER visits with various symptoms, I will address it as well Differential Diagnosis Differential Diagnoses: The differential diagnosis associated with the presentation includes (Acid reflux, stomach ulcers, ACS, liver pathology, gallbladder pathology, pancreatic pathology, malignancy) Admission/Observation Consideration of admission/observation: Escalation of care including admission/observation considered Lab Data [facility] Lab Attestation statement: I reviewed the patient's lab results. 12/09/24 06:42 12/09/24 06:42 Labs: Lab Results 12/09/24 Range/Units 06:42 WBC 8.2 (4.8-10.8) X10*3/uL RBC 5.22 (4.60-5.80) X10*6/uL Hgb 14.3 (14.0-18.0) g/dl Hct 42.6 (42.0-52.0) % MCV 81.6 (80.0-98.0) fL MCH 27.4 (27.0-33.0) pg MCHC 33.6 (31.0-36.0) g/dl RDW 13.2 (11.0-16.0) % Plt Count 155 L (160-400) X10*3/uL MPV 9.6 (9.4-12.4) fL Immature Gran % (Auto) 0.5 H (0.0-0.4) % Neut % (Auto) 71.7 (45-73) % Lymph % (Auto) 18.7 L (20-40) % [place] % (Auto) 6.8 (2-11) % Eos % (Auto) 1.8 (0-4) % Baso % (Auto) 0.5 (0-2) % Lymph # (Auto) 1.5 (1.2-4.9) X10*3/uL [place] # (Auto) 0.6 (0.1-1.2) X10*3/uL Eos # (Auto) 0.2 (0.0-0.4) X10*3/uL Baso # (Auto) 0.0 (0.0-0.2) X10*3/uL Abs Immat Gran (auto) 0.04 H (0.00-0.03) X10*3/uL Absolute Neuts (auto) 5.9 (2.0-8.3) x10*3/uL Absolute Nucleated RBC 0.000 (0.0-0.012) X10*3/uL Nucleated RBC % (auto) 0.0 (0.0-0.2) /100WBC Sodium 142 (135-145) mmol/L Potassium 3.8 (3.3-5.1) mmol/L Chloride 107 (96-108) mmol/L Carbon Dioxide 23 (22-29) mmol/L Anion Gap 16 (12-20) BUN 11 (9-16) mg/dL Creatinine 1.04 (0.5-1.4) mg/dL Estim Creat Clear Calc 76.0 Estimated GFR > 60 Random Glucose 174 H (60-115) mg/dL Calcium 9.3 (8.4-10.2) mg/dL Magnesium 1.8 (1.6-2.6) mg/dL Total Bilirubin 0.6 (0.0-1.0) mg/dL AST 25 (5-37) U/L ALT 30 (0-40) U/L Alkaline Phosphatase 57 (39-117) U/L Troponin I High Sens 8.7 (<3.5-35.0) ng/L Total Protein 6.9 (6.5-8.0) g/dL Albumin 4.1 (3.5-5.0) g/dL Independent Interpretation I performed an independent interpretation of an: EKG (81 beats per minute otherwise normal ECG without dysrhythmia, AV tatyana blocks or ST-T changes to suspect underlying ACS, my independent interpretation) Discharge Plan Discharge Clinical Impression: Dysphagia, Recent weight loss, Fatigue Additional Instructions: This is your 5th or 6th ER visit this summer, in the meantime you have had multiple workup that included many EKGs, chest x-rays, blood work, urinalysis all of which has been reassuring, some of the concerns that you have regarding difficulty with swallowing or weight loss she will be brought up by a PCP, and you may need a referral to a senior wealth advisor or dietitian, overall I am reassured by physical examination your workup and your vital signs Prescriptions: No Action acetaminophen [Tylenol Extra Strength] 500 mg tablet 500 mg PO Q6H PRN (Reason: fever or pain) Qty: 14 0RF lidocaine [Lidoderm] 5 % adhesive patch,medicated 1 patch topical DAILY MDD remove after 12 hours PRN (Reason: pain) Qty: 30 0RF Rx Instructions: leave on most painful area for up to 12 hrs naproxen 500 mg tablet 500 mg PO BID PRN (Reason: pain) 10 Days Qty: 20 0RF azithromycin 250 mg tablet See Rx Instructions PO .COMPLEX Qty: 6 0RF Rx Instructions: For 250 mg dose pack: take 500 mg today (day 1), then 250 mg for 4 days (days 2-5) meclizine 12.5 mg tablet 12.5 mg PO TID PRN (Reason: vertigo) 5 Days Qty: 20 0RF fluticasone furoate 27.5 mcg/actuation spray,suspension 1 spray intranasal DAILY Qty: 5.9 1RF Rx Instructions: into each nostril Michael[place] Plus Cold-Flu 12.5-10-20-650 mg powder in packet 1 packet PO Q4H Qty: 6 0RF Rx Instructions: DNExceed 5 doses/24h fluticasone propionate [Flonase Allergy Relief] 50 mcg/actuation spray,suspension 1 spray intranasal BID Qty: 16 0RF Rx Instructions: administer into each nostril Referrals: Octavia Marie MD [Primary Care Provider, Internal Medicine] - 2 weeks Clinical Impression: Fatigue; Dysphagia; Recent weight loss Print Language: Hebrew
[2024-12-09 06:45] LABS: MANUAL DIFF FLAG NO
--- OUTSIDE RECORDS SUMMARY | 2024-12-09 06:48 | XMS_ITS | Encounter Summary ---
Author Organization [employer] [facility] Address [address] [place] [address] Care Team Providers Care Furnace Firer Name Role Phone Unavailable Primary Care Provider Unavailabl e Reason for Visit * Reason Onset Date Comments Appointment 12/20/2022 Encounter Details Date Type Department Care Team (Late st Contact Info) Description 12/20/2022 Telephone [facility] [address], [place] [id number] Kelin, Nithya [address] [place] [address] Appointment Social History Tobacco Use Types Packs/Day [...]
--- OUTSIDE RECORDS SUMMARY | 2024-12-09 06:48 | XMS_ITS | Encounter Summary ---
Author Organization [employer] [facility] Address [address] [place] [address] Care Team Providers Care Director Of Retail Operations Name Role Phone Unavailable Primary Care Provider Unavailabl e Encounter Details Date Type Department Care Team (Late st Contact Info) Description 01/25/2023 Abstract [facility] AD[facility] [address] [place] [address] Nithya Neville [address] [place] [address] Social History Tobacco Use Types Packs/Day Years [...]
--- OUTSIDE RECORDS SUMMARY | 2024-12-09 06:48 | XMS_ITS | Encounter Summary ---
Author Organization [employer] [facility] Address [address] [facility] 7t [place] [address] Care Team Providers Care Customer Training Specialist Name Role Phone Unavailable Primary Care Provider [...]
--- OUTSIDE RECORDS SUMMARY | 2024-12-09 06:48 | XMS_ITS | Encounter Summary ---
Author [place] [address] Care Team Providers Care Integrity Specialist Name Role Phone Octavia Marie MD Primary Care Provider [phone] Reason for Visit * Reason Onset Date Comments Forms/questionnaires 12/06/2024 Encounter Details Date Type Department Care Team ([facility] Contact Info) Description 12/06/2024 Telephone Adult Medicine [address] [phone] Lola Alcantara MA Social History Tobacco Use Types Packs/Day Years [...] on file documented as of this encounter Progress Notes * Lola Alcantara MA - 12/06/2024 5:37 PM EDT Received RMV form for pt but there was no telephone encounter, and blank copy of the form was not scanned in. Per Dr Marie, I spoke with pt to find out if he is still driving or if someone drives him. pt is legally blind and is seen at [facility] in [place]. I requested he brings us a few recent notes from his eye doctor, along with notes of the recent procedure he had, and any notes regarding legal blindness. I explained this will be needed to complete the form. Pt stated he will go Monday to get these notes and drop them off here. I will call the pt Monday afternoon if he has not dropped them off by them documented in this encounter Plan of Treatment Upcoming Encounters Date Type Department Care Team (Late st Contact Info) Description 12/26/2024 8:45 AM EDT Office Visit Orthopedic Surgery - [place] [address] [phone] Willie Barth, DPM [address] [address] 01/08/2025 12:00 PM EDT Appointment [facility] Endoscopy [address] [place] [phone] Gilbert Huffman MD [address] [place] [phone] 03/04/2025 7:45 AM EST Office Visit Adult Medicine [facility] [address] [place] [phone] Octavia Marie MD [address] [place] [address] documented as of this encounter Visit Diagnoses Not on filedocumented in this encounter Additional Health Concerns Assessment Noted Time PHQ-9 Depression Total Score: 0 03/05/20 9:30 AM EST documented as of this encounter Care Teams Integrity Specialist Relationship Specialty Start Date End Date Octavai Marie MD [address] [place], [place] PCP - General 01/19/24 documented as of this encounter
--- OUTSIDE RECORDS SUMMARY | 2024-12-09 06:48 | XMS_ITS | Encounter Summary ---
Author Organization [employer] [facility] Address [address] [facility] 7t [place] [address] Care Team Providers Care Grinder Watch Parts Name Role Phone Unavailable Primary Care Provider Unavailabl e Encounter Details Date Type Department Care Team (Late st Contact Info) Description 03/28/2023 Abstract [facility] ADULT DENTAL [address] [place] [address] Nithya Neville [address] [place] [address] Social History Tobacco Use Types Packs/Day Years [...]
--- OUTSIDE RECORDS SUMMARY | 2024-12-09 06:48 | XMS_ITS | Encounter Summary ---
Author Organization [employer] [facility] Address [address] [facility] 7t [place] [address] Care Team Providers Care Bookkeepers Supervisor Name Role Phone Unavailable Primary Care [...]
--- OUTSIDE RECORDS SUMMARY | 2024-12-09 06:48 | XMS_ITS | Clinical Summary ---
Author Organization [facility] [address] [facility] Address [address] [place] [address] Phone Care Team Providers Care Pressfitter Name Role Phone Octavia Marie MD Primary Care Provider Allergies Active Allergy Reactions Criticality Noted Date [...] day. 5 mL 11/07/19 25 026 Active meclizine (ANTIVERT) 12.5 mg tablet Take 1 tablet (12.5 mg total) by mouth 3 (three) times a day if needed for dizziness. Active Active Problems Problem Noted Date Diagnosed Date Type 2 diabetes mellitus wit h other specified complication ([facility] V24, [facility] V28) 11/12/2024 Primary hypertension 11/12/2024 Adjustment disorder with depressed mood 04/26/19 20 Type II diabetes mellitus wi th neurological manifestations ([facility] V24, [facility] V28) 01/18/2019 Renal cyst 04/09/2018 Prostate enlargement 12/29/2016 Blindness of left eye 09/24/2015 Overview (01/04/2024): 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 Diastasis recti 03/20/2015 Low HDL (under 40) 02/18/2015 Lipoma of breast 02/19/2014 Breast mass in male 02/12/2014 Hand pain 12/30/2013 Microalbuminuria 06/07/2013 DM (diabetes mellitus) type II controlled with renal manifestation ([facility] V24, [facility] V28) 08/08/2012 Overview (01/04/2024): Microalbumin 48 on 04/17/2011 Allergic rhinitis 06/27/2012 Essential hypertension, benign 06/27/2012 Depression 10/01/2010 Hyperlipidemia with target LDL less than 100 07/2007 Overview (01/04/2024): IMO update Chest pain, unspecified 02/27/2008 Obesity, unspecified 02/27/2008 Premature ejaculation 02/27/2008 Encounters Date Type Department Care Team Description 12/06/2024 8:30 AM EDT Office Visit [address] [phone] Octavia Marie MD Dizziness (Primary Dx); Elevated BUN; Type 2 diabetes mellitus with other specified complication, unspecified whether mcfp insulin use ([facility] V24, [facility] V28); Essential hypertension, benign; Hyperlipidemia with target LDL less than 100; SOB (shortness of breath) 12/06/[address] [phone] Lola Alcantara PA 12/03/[address] [phone] Octavia Marie MD 12/03/[address] [phone] Octavia Marie MD 11/12/2024 1:20 PM EDT Lab Draw Station [address] Preop examination; Type 2 diabetes mellitus without complication, without long-term current use of insulin ([facility] V24, [facility] V28); Hyperlipidemia, unspecified hyperlipidemia type 11/12/2024 12:30 PM EDT Consult [address] [phone] Octavia Marie MD Preop examination (Primary Dx); Type 2 diabetes mellitus with other specified complication, unspecified whether mcfp insulin use ([facility] V24, [facility] V28); Primary hypertension 11/06/2024 1:00 PM EDT Office Visit [address] [phone] Kam Sanchez NP Ear itch (Primary Dx); Controlled type 2 diabetes mellitus with other diabetic kidney complication, without long-term current use of insulin ([facility] V24, [facility] V28); Essential hypertension, benign; Hyperlipidemia with target LDL less than 100; Benign prostatic hyperplasia without lower urinary tract symptoms 09/17/2024 Telephone Gastroenterology - [place] [address] [facility] [address] [facility] [address] [place] [address] Ananda Ramires DO from Last [...] Surgery Date Site/Laterality Comments COLONOSCOPY 2013 PROCEDURE: [place] COLONOSCOPY FLX DX W/COLLJ SPEC WHEN PFRMD; COMMENT: normal COLONOSCOPY PROCEDURE: HISTORICAL COLONOSCOPY Medical History Medical History Date Comments Hyperlipemia DX:Hyperlipemia Unspecified disorder of lipo id metabolism 03/06/2008 DX:Unspecified disorder of l ipoid metabolism Unspecified essential hypertension DX:Unspecified essential hypertension Diabetes mellitus type 2, co ntrolled ([facility]/HCC V24, [facility]/H[facility] V28) 06/21/2010 DX:Diabetes mellitus type 2 , [...] 12 12/06/2024 8:20 AM EDT Oxygen Saturation 99% 03/05/2024 9:27 AM EST Inhaled Oxygen Concentration - - Weight 78 kg (172 lb) 12/06/2024 8:20 AM EDT Height 172.7 cm (5' 8 ) 12/06/2024 8:20 AM EDT Body Mass Index 26.15 12/06/2024 8:20 AM EDT Plan of Treatment Upcoming Encounters Date Type Department Care Team (Late st Contact Info) Description 12/26/2024 8:45 AM EDT Office Visit Orthopedic Surgery - [place] [address] [phone] Willie Barth DPM [address] [address] 01/08/2025 12:00 PM EDT Appointment [facility] Endoscopy [address] [place] [address] Gilbert Huffman MD [address] [place] [phone] 03/04/2025 7:45 AM EST Office Visit Adult Medicine [facility] [address] [facility] [phone] Octavia Marie MD [address] [facility] [place] [address] Health Maintenance Due Date Last Done Comments [...] complication, without long-term current use of insulin ([facility] V24, [facility] V28) CBC WITH AUTO DIFFERENTIAL Routine 11/12/2024 1:18 PM EDT Preop examination HEMOGLOBIN A1C Routine 11/12/2024 1:18 PM EDT Type 2 diabetes mellitus without complication, without long-term current use of insulin ([facility] V24, [facility] V28) LIPID PANEL WITH REFLEX TO DIRECT LDL Routine 11/12/2024 1:18 PM EDT Hyperlipidemia, unspecified hyperlipidemia type CBC AND DIFFERENTIAL Routine 11/12/2024 1:18 PM EDT Preop examination HEMOGLOBIN A1C Routine 11/06/2024 1:46 PM EDT Type 2 diabetes mellitus without complication, without long-term current use of insulin ([facility]/HCC V24, [facility]/HCC V28) LIPID PANEL WITH REFLEX TO DIRECT LDL Routine 11/06/2024 1:46 PM EDT Hyperlipidemia, unspecified hyperlipidemia type MICROALBUMIN CREATININE URINE RATIO Routine 11/06/2024 1:46 PM EDT Type 2 diabetes mellitus without complication, without long-term current use of insulin ([facility]/HCC V24, [facility]/HCC V28) BASIC METABOLIC PANEL Routine [...] resultswithin the time period is included. Pathologist [facility] Creatinine, Urine 138.0 mg/dL LAB CHEMISTRY METHOD 11/12/2024 6:44 PM EDT [facility] Microalb, Ur 9.2 0.0 - 29.0 mg/L LAB CHEMISTRY METHOD 11/12/2024 6:44 PM EDT [facility] Microalb/Creat Ratio 7 <30 mg/g creat LAB CHEMISTRY METHOD 11/12/2024 6:44 PM EDT [facility] Urine Urine specimen obtained by clean catch procedure / Unknown Non-blood Collection / Unknown 11/12/2024 1:26 PM EDT 11/12/2024 1:26 PM EDT us Octavia Marie MD LAB URINE ORDERABLES Final Result [facility] [address] [place] [address], [place] [phone] * (ABNORMAL) Lipid panel with reflex to direct LDL (11/12/2024 1:18 PM EDT) Only the most recent of2 resultswithin the time period is included. Cholesterol 92 0 - 200 mg/dL LAB CHEMISTRY METHOD 11/12/2024 5:41 PM [facility] Triglycerides 106 0 - 150 mg/dL LAB CHEMISTRY METHOD 11/12/2024 5:41 PM [facility] HDL 30(L) >=40 mg/dL LAB CHEMISTRY METHOD 11/12/2024 5:41 PM T [facility] LDL Calculated 41 0 - 100 mg/dL LAB CHEMISTRY METHOD 11/12/2024 5:41 PM EDT [facility] Comment:Estimated LDL Calcul ated using equation: Total cholesterol - HDL cholesterol - (Triglycerides/5) VLDL Cholesterol Ike 21.2 mg/dL LAB CHEMISTRY METHOD 11/12/2024 5:41 PM EDT [facility] Non HDL Chol. (LDL+VLDL) 62 <145 mg/dL LAB CHEMISTRY METHOD 11/12/2024 5:41 PM EDT [facility] Chol/HDL Ratio 3.1 0.0 - 4.4 LAB CHEMISTRY METHOD 11/12/2024 5:41 PM EDT [facility] Blood Venous blood specimen / Unknown Venipuncture / Unknown 11/12/2024 1:18 PM EDT 11/12/2024 1:18 PM EDT Octavia Marie MD LAB BLOOD ORDERABLES Final Result [facility] [address] [place] [address], * CBC auto differential (11/12/2024 1:18 PM EDT) WBC 7.1 4.8 - 10.8 K/mcL LAB HEMETOLOGY METHOD 11/12[facility]2024 5:[facility] RBC 5.20 4.50 - 5.50 M/mcL LAB HEMETOLOGY METHOD 11/12/2024 5:07 [facility] Hemoglobin 14.1 13.5 - 17.5 g/dL LAB HEMETOLOGY METHOD 11/12/2024 5:07 PM [facility] Hematocrit 44.1 42.0 - 54.0 % LAB HEMETOLOGY METHOD 11/12/2024 5:07 PM EDT [facility] MCV 84.5 79.0 - 98.0 FL LAB HEMETOLOGY METHOD 11/12/2024 5:07 PM [facility] MCH 27.0 27.0 - 32.0 pcg LAB HEMETOLOGY METHOD 11/12/2024 5:07 PM [facility] MCHC 32.0 32.0 - 37.0 g/dL LAB HEMETOLOGY METHOD 11/12/2024 5:07 PM [facility] RDW 13.0 11.0 - 15.0 % LAB HEMETOLOGY METHOD 11/12/2024 5:07 PM EDT [facility] Platelets 197 130 - 400 K/mcL LAB HEMETOLOGY METHOD 11/12/2024 5:07 PM [facility] MPV 10.5 7.0 - 11.0 FL LAB HEMETOLOGY METHOD 11/12/2024 5:07 PM [facility] NRBC 0.0 <1.0 % LAB HEMETOLOGY METHOD 11/12/2024 5:07 PM [facility] NRBC Absolute 0.00 <0.10 K/mcL LAB HEMETOLOGY METHOD 11/12/2024 5:07 PM [facility] Neutrophils Relative 59.1 % LAB HEMETOLOGY METHOD 11/12/2024 5:07 PM [facility] Lymphocytes Relative 26.6 % LAB HEMETOLOGY METHOD 11/12/2024 5:07 PM [facility] Monocytes Relative 10.9 % LAB HEMETOLOGY METHOD 11/12/2024 5:07 PM [facility] Eosinophils Relative 2.5 % LAB HEMETOLOGY METHOD 11/12/2024 5:07 PM [facility] Basophils Relative 0.6 % LAB HEMETOLOGY METHOD 11/12/2024 5:07 PM [facility] Immature Granulocytes Relative 0.3 % LAB HEMETOLOGY METHOD 11/12/2024 5:07 PM [facility] Neutrophils Absolute 4.17 1.50 - 7.00 K/mcL LAB HEMETOLOGY METHOD 11/12/2024 5:07 PM [facility] Lymphocytes Absolute 1.88 1.00 - 5.00 K/mcL LAB HEMETOLOGY METHOD 11/12/2024 5:07 PM [facility] Monocytes Absolute 0.77 0.20 - 1.00 K/mcL LAB HEMETOLOGY METHOD 11/12/2024 5:07 PM EDT [facility] Eosinophils Absolute 0.18 0.00 - 0.50 K/[facility] LAB HEMETOLOGY METHOD 11/12/2024 5:07 PM EDT [facility] Basophils Absolute 0.04 0.00 - 0.20 K/[facility] LAB HEMETOLOGY METHOD 11/12/2024 5:07 PM EDT [facility] Immature Granulocytes Absolute 0.02 0.00 - 0.03 K/[facility] LAB HEMETOLOGY METHOD 11/12/2024 5:07 PM EDT [facility] Blood Venous blood specimen / Unknown Venipuncture / Unknown 11/12/2024 1:18 PM EDT 11/12/2024 1:18 PM EDT Octavia Marie MD LAB BLOOD ORDERABLES Final Result [facility] [address] [place] [address], [place] [phone] * (ABNORMAL) Hemoglobin A1c (11/12/2024 1:18 PM EDT) Only the most recent of2 resultswithin the time period is included. Hemoglobin A1C 6.5(H) <6.5 % LAB CHEMISTRY METHOD 11/12/2024 8:23 PM EDT [facility] Mean Bld Glu Estim. 140 mg/dL LAB CHEMISTRY METHOD 11/12/2024 8:23 PM EDT [facility] Blood Venous blood specimen / Unknown Venipuncture / Unknown 11/12/2024 1:18 PM EDT 11/12/2024 1:18 PM EDT us Octavia Marie MD LAB BLOOD ORDERABLES Final Result [facility] [address] [place] [address], * (ABNORMAL) Basic metabolic panel (11/06/2024 1:46 PM EDT) Sodium 139 133 - 145 mmol/L LAB CHEMISTRY METHOD 11/06/2024 4:52 PM EDT [facility] Potassium 3.9 3.5 - 5.5 mmol/L LAB CHEMISTRY METHOD 11/06/2024 4:52 PM EDT [facility] Chloride 107 96 - 110 mmol/L LAB CHEMISTRY METHOD 11/06/2024 4:52 PM [facility] CO2 28 21 - 32 mmol/L LAB CHEMISTRY METHOD 11/06/2024 4:52 PM [facility] Anion Gap 4 3 - 11 LAB CHEMISTRY METHOD 11/06/2024 4:52 PM [facility] Glucose 114(H) 70 - 100 mg/dL LAB CHEMISTRY METHOD 11/06/2024 4:52 PM [facility] BUN 16 5 - 25 mg/dL LAB CHEMISTRY METHOD 11/06/2024 4:52 PM [facility] Creatinine 1.02 0.70 - 1.30 mg/dL LAB CHEMISTRY METHOD 11/06/2024 4:52 [facility] eGFR 83 >=60 mL/min/1. 73m2 LAB CHEMISTRY METHOD 11/06/2024 4:52 PM [facility] Comment:Calculation based on the Chronic Kidney Disease Epidemiology Collaboration (CKD-EPI) equation refit without adjustment for race. BUN/Creatinine Ratio 15.7 LAB CHEMISTRY METHOD 11/06/2024 4:52 PM [facility] Calcium 9.2 8.5 - 10.5 mg/dL LAB CHEMISTRY METHOD 11/06/2024 4:52 PM [facility] Blood Venous blood specimen / Unknown Venipuncture / Unknown 11/06/2024 1:46 PM EDT 11/06/2024 1:46 PM EDT Kam Sanchez NP LAB BLOOD ORDERABLES Final R esult Performing Organization Address [facility]/ZIP Co de Phone Number [facility] [address] [place] [address], [place] [phone] * Hepatitis C antibody (03/06/2024 8:40 AM EST) [facility] Hepatitis C Antibody Negative Negative LAB CHEMISTRY METHOD 03/06/2024 2:12 PM EST [facility] Blood Venous blood specimen / Unknown Venipuncture / Unknown 03/06/2024 8:40 AM EST 03/06/2024 8:40 AM EST Kam Sanchez NP LAB BLOOD ORDERABLES Final R esult Performing Organization Address [facility] Co de Phone Number [facility] [address] [place] [address], [place] [phone] * HIV 1,2 antibody, p24 antigen with reflex to differentiation (03/06/2024 8:40 AM EST) [facility] HIV Combo AB/AG Negative Negative LAB CHEMISTRY METHOD 03/06/2024 2:13 PM EST [facility] Blood Venous blood specimen / Unknown Venipuncture / Unknown 03/06/2024 8:40 AM EST 03/06/2024 8:40 AM EST Narrative [facility] - 03/06/2024 2:13 PM EST This assay is a 4th generation assay allowing for earlier detection of HIV infection by detecting the presence of the HIV-1 p24 antigen as well as the traditional antibodies to HIV type 1 (including group O) and type 2. Use of a 4th generation assay is the current CDC recommendation for HIV screening. us Maye-Lamar N Sanchez CLERK SECRETARY LAB BLOOD ORDERABLES Final R esult [facility] [address] [place] [address], * Diabetes Eye Exam (05/26/2023) Pathologist [facility] Diabetes: Annual Retina Eye Exam Abstracted us Historical Provider HEALTH MAINTENANCE Final Result * Diabetes Foot Exam (02/08/2023) Pathologist On license of [facility] Diabetes: Annual Foot Exam Abstracted Historical Provider HEALTH MAINTENANCE Final Result from Last 3 Months or Most Recently Relevant to Health Maintenance Insurance [facility] Care Teams Pressfitter Relationship Specialty Start Date End Date Octavia Marie MD [address] [place] [address] PCP - General 01/19/24
--- OUTSIDE RECORDS SUMMARY | 2024-12-09 06:48 | XMS_ITS | Clinical Summary ---
Author Organization [employer] Address [address] [facility] 7t [place] [address] Care Team Providers Care Director Physical Therapy Name Role Phone Unavailable Primary Care Provider [...] Use Screening 1973 Hepatitis C Screening 1979 Dental Oral Exam 01/25/2024 07/25/2023, 01/2023, 05/29/2019, Additional history exists Dental X-Ray: Full Mouth 03/17/2024 03/16/2021, 11/2013 Dental X-Ray: Bitewings 07/25/2024 07/25/19 24, 12/23/2022, 03/16/2021, Additional history exists Dental Prophylaxis 08/06/2024 02/06/2024, 0 07/25/2023, 12/23/2022, Additional history exists COVID-19 Vaccine (2024- season) 2024 11/27/2022, 10/24/2021, 04/18/2021, Additional history exists Influenza Vaccine (#1) 2024 [...] Most Recently Relevant to Health Maintenance Insurance [facility] MEDICAID STAND ADULT * Guarantor: Holland Washburn Account Type Relation to Patient Date of Phone Billing Address Personal/Family Self [address]
[2024-12-09 06:55] LABS: Hematocrit 42.6 % (42.0-52.0); Hemoglobin 14.3 g/dl (14.0-18.0); Imm Gran Abs Auto 0.04 X10*3/uL (0.00-0.03); Imm Gran Pct Auto 0.5 % (0.0-0.4); Lymphocytes Absolute Auto 1.5 X10*3/uL (1.2-4.9); Mean Corpuscular HGB Conc 33.6 g/dl (31.0-36.0); Mean Corpuscular Hemoglobin 27.4 pg (27.0-33.0); Mean Corpuscular Volume 81.6 fL (80.0-98.0); NRBC Abs Auto 0.000 X10*3/uL (0.0-0.012); NRBC Pct Auto 0.0 /100WBC (0.0-0.2); Platelet Count 155 X10*3/uL (160-400); Red Blood Count 5.22 X10*6/uL (4.60-5.80); White Blood Count 8.2 X10*3/uL (4.8-10.8)
[2024-12-09 07:02] LABS: Alanine Aminotransferase 30 U/L (0-40); Albumin Level 4.1 g/dL (3.5-5.0); Alkaline Phosphatase 57 U/L (39-117); Anion Gap 16 (12-20); Aspartate Amino Transferase 25 U/L (5-37); Blood Urea Nitrogen 11 mg/dL (9-16); Calcium 9.3 mg/dL (8.4-10.2); Carbon Dioxide 23 mmol/L (22-29); Chloride 107 mmol/L (96-108); Creatinine Clr Calc Pharmacy 76.0; Estimated Glomerular Filt Rate > 60; Magnesium 1.8 mg/dL (1.6-2.6); Potassium 3.8 mmol/L (3.3-5.1); Sodium 142 mmol/L (135-145); Total Protein 6.9 g/dL (6.5-8.0)
[2024-12-09 07:05] LABS: Troponin-I High Sensitivity 8.7 ng/L (<3.5-35.0)
[2024-12-09 07:56] VITALS: BP 132/65; PULSE 77; RESP 15; TEMP 36.4; O2SAT 98
== END 2024-12-09 07:57 | disposition home or self-care (01) ==
PROVIDERS: Emergency Provider Emergency Medicine; PCP Internal Medicine
DX: R13.10 Dysphagia, unspecified (principal); R06.02 Shortness of breath; R53.83 Other fatigue; R63.4 Abnormal weight loss; Z68.27 Body mass index [BMI] 27.0-27.9, adult; R07.9 Chest pain, unspecified; E11.9 Type 2 diabetes mellitus without complications; I10 Essential (primary) hypertension
CPT/HCPCS: 36415; 71045; 80053; 83735; 84484; 85025; 93005; 99283; 99284

== ENCOUNTER → 2024-12-09 06:38 | Outpatient (BNV) | payer OTHER, SELFPAY | PROVIDERS: Emergency Provider Emergency Medicine; PCP Internal Medicine; Visit Provider Radiology Vascular & Interventional Radiology | DX: R06.02 Shortness of breath (principal) | CPT/HCPCS: 71045 ==

== ENCOUNTER → 2024-12-09 06:46 | Outpatient (BNV) | payer OTHER, SELFPAY | PROVIDERS: Emergency Provider Emergency Medicine; PCP Internal Medicine; Visit Provider Internal Medicine Cardiovascular Disease | DX: R94.31 Abnormal electrocardiogram [ECG] [EKG] (principal); R06.02 Shortness of breath | CPT/HCPCS: 93010 ==

== ENCOUNTER 2025-01-27 01:31 | Emergency (ER) | payer OTHER, SELFPAY ==
[2025-01-27 01:33] VITALS: BP 127/60; PULSE 75; RESP 18; TEMP 36.3; O2SAT 95; BMI 21.0
--- OUTSIDE RECORDS SUMMARY | 2025-01-27 01:45 | XMS_ITS | Clinical Summary ---
Author Organization [employer] Address [address] [facility] 7t [place] [address] Care Team Providers Care Senior Backup Administrator Name Role Phone Unavailable Primary Care Provider [...] Most Recently Relevant to Health Maintenance Insurance [facility] MEDICAID STAND ADULT * Guarantor: Holland Washburn Account Type Relation to Patient Date of Phone Billing Address Personal/Family Self [address]
--- OUTSIDE RECORDS SUMMARY | 2025-01-27 01:45 | XMS_ITS | Encounter Summary ---
Author Organization [place] [address] Care Team Providers Care Slide Fastener Chain Assembler Name Role Phone Octavia Marie MD Primary Care Provider [phone] Encounter Details Date Type Department Care Team ([facility] st Contact Info) Description 01/17/2025 Results Follow-Up Gastroenterology - [place] [address] [place] [address] Ananda Ramires DO [address] [place] [address] Social History Tobacco Use Types Packs/Day Years Used Date Smoking Tobacco: Former Cigarettes Q uit: 04/03/1992 Smokeless Tobacco: Never Alcohol Use Standard Drinks/Week Comments Not Currently 0 (1 standard drink = 0.6 oz pur e alcohol) Interpersonal Safety Answer Date Record ed Physical Abuse Unrecognized value 01/15/2025 Verbal Abuse Unrecognized value 01/15/2025 Sex and Gender Information Value Date Recorded Sex Assigned at Not on file Legal Sex Male 11:46 PM EST Gender Identity Not on file Sexual Orientation Not on file documented as of this encounter Progress Notes * DO Vianey Lewis 01/17/2025 3:11 PM EDT Please let the patient know that the colon polyp removed was benign, but precancerous. Given the type and size of polyp (> 1 cm), and based on current guidelines, I recommend that a surveillance colonoscopy is performed in [address] a reminder on the system for the patient to be contacted to have a surveillance colonoscopy in 3 years. High-fiber diet and avoidance of processed foods recommended. Thank you. documented in this encounter Plan of Treatment Upcoming Encounters Date Type Department Care Team ([facility] st Contact Info) Description 02/05/2025 12:30 PM EST Consult Adult [facility] [place] [address] [place] [address] Octavia Marie MD [address] [place], [place] 02/06/2025 2:30 PM EST Ancillary Procedure [facility] [address] [facility] [address] [place] [address] 02/10/2025 10:45 AM EST Office Visit Orthopedic Surgery - [place] [address] [phone] Willie Barth, DPNahomi [address] [address] 02/25/2025 10:45 AM EST Appointment [facility] [address] [place] [phone] Janice García, DONOVAN 03/04/2025 7:45 AM EST Office Visit Adult [facility] [address] [place], [place] [phone] Octavia Marie MD [address] [place] [address] documented as of this encounter Goals Goal Patient Goal Type Associated Problems Recent Progress Patient-Stated? Author Autogenera guillermina Goal Care Plan Autogenerated Problem No Jessica Mcgee Evonne documented as of this encounter Visit Diagnoses Not on filedocumented in this encounter Additional Health Concerns Active Problems Noted Date Diagnosed Date Autogenerated Problem 01/09/2025 Assessment Noted Time PHQ-9 Depression Total Score: 0 03/05/20 9:30 AM EST documented as of this encounter Care Teams Slide Fastener Chain Assembler Relationship Specialty Start Date End Date Octavia Marie MD [address] [place] [address] PCP - General 01/19/24 documented as of this encounter
--- OUTSIDE RECORDS SUMMARY | 2025-01-27 01:45 | XMS_ITS | Encounter Summary ---
Author Organization [place] [address] Care Team Providers Care Fire Claims Adjuster Name Role Phone Octavia Marie MD Primary Care Provider [phone] Reason for Visit * Reason Onset Date Comments DX Review 12/11/2024 Encounter Details Date Type Department Care Team ([facility] Contact Info) Description 12/11/2024 Telephone Adult Medicine [facility] [address] [place] [address] Octavia Marie MD [address] [place] [address] Social History Tobacco Use Types Packs/Day Years [...] as of this encounter Progress Notes * Luzmaria Tello - 01/22/2025 8:18 AM EDT Please see message below for upcoming appointment. Thank you, [facility] Scheduling * Amina Berumen - 12/11/2024 10:53 AM EDT We received an order you placed for this patient to have an ECHOCARDIOGRAM and the appointment is scheduled for 02/06/25. The order has an associated diagnosis of Dizziness [R42]. This diagnosis is not considered to support medical necessity for the test ordered according to insurance guidelines. Please review to see if there is another diagnosis, including signs/symptoms, that is appropriate to be associated with this test and update the associated diagnosis on the current o rder. If there is not a diagnosis that meets medical necessity associated with this order within 24hrs ofthe scheduled appointment, the appointment may be cancelled. Thank you, [facility] Scheduling documented in this encounter Plan of Treatment Upcoming Encounters Date Type Department Care Team (Late st Contact Info) Description 02/05/2025 12:30 PM EST Consult [facility] [address] [place] [phone] Octavia Marie MD [address] [place] [address] 02/06/2025 2:30 PM EST Ancillary Procedure [facility] [address] [phone] 02/10/2025 10:45 AM EST Office Visit Orthopedic Surgery - [place] [address] [phone] Willie Barth, DPNahomi [address] [address] 02/25/2025 10:45 AM EST Appointment [facility] Xray [address] [place] [phone] Janice García, DONOVAN 03/04/2025 7:45 AM EST Office Visit [facility] [address] [place] [address] Octavia Marie MD [address] [place] [address] documented as of this encounter Goals Goal Patient Goal Type Associated Problems Recent Progress Patient-Stated? Author Autogenera guillermina Goal Care Plan Autogenerated Problem No Jessica Mcgee documented as of this encounter Visit Diagnoses Not on filedocumented in this encounter Additional Health Concerns Active Problems Noted Date Diagnosed Date Autogenerated Problem 01/09/2025 Assessment Noted Time PHQ-9 Depression Total Score: 0 03/05/20 9:30 AM EST documented as of this encounter Care Teams Fire Claims Adjuster Relationship Specialty Start Date End Date Octavia Marie MD [address] [place] [address] PCP - General 01/19/24 documented as of this encounter
--- OUTSIDE RECORDS SUMMARY | 2025-01-27 01:45 | XMS_ITS | Clinical Summary ---
Author Organization [facility] [address] [facility] lding Address [address] [place] [address] Phone Care Team Providers Care Coding Specialist Name Role Phone Octavia Marie MD [...] as instructed 100 each 11 02/13/20 24 11/12/2 025 Active isopropyl alcohoL 70 % toweletteIndicatio ns:Type II diabetes mellitus with neurological manifestations (CMS/HCC V24, CMS/HCC V28) Use as directed 100 each 3 02/13/20 Active Autolet (OneTouch Delica Plus Lanc Dev) lancing device Use as instructed once daily 1 each 02/22/20 24 Active OneTouch Ultra2 Meter misc USE TO MONITOR BLOOD SUGAR ONCE DAILY 1 each 02/23/20 24 Active FreeStyle Lite Meter monitoring kit USE [...] a day if needed for dizziness. Active nystatin (MYCOSTATIN) 100,000 unit/mL suspension Take 5 mL (500,000 Units total) by mouth 4 (four) times a day. Swish in mouth and swallow. 280 mL 12/14/19 25 025 Active polyethylene glycol (Golytely) 236-22.74-6.74 -5.86 gram solution Take 4L by mouth once for one dose. May substitue any PEG. Starting at 2PM the day before your procedure drink 1 8oz glasses at your own pace until you complete half of the gallon. Finish 2nd half of the gallon at 8PM. 4000 mL 12/26/19 25 Active bisacodyL (DULCOLAX) 5 mg EC tablet Take 2 tablets by mouth right before beginning bowel prep. See instructions provided by the office 2 tablet 12/26/19 25 Active acetaZOLAMIDE (DIAMOX) 500 mg 12 hr capsule Take 1 capsule (500 mg total) by mouth 2 (two) times a day. 11/21/19 25 Active brimonidine (ALPHAGAN) 0.2 % ophthalmic solution instill 1 drop into left eye twice a day 11/21/19 25 Active dorzolamide (TRUSOPT) 2 % ophthalmic solution instill 1 drop into left eye twice a day 11/21/19 25 Active moxifloxacin (VIGAMOX) 0.5 % ophthalmic solution INSTILL 1 DROP IN AFFECTED EYE 4 TIMES A DAY STARTING 2 DAYS PRIOR TO SURGERY 11/14/19 25 Active latanoprost (XALATAN) 0.005 % ophthalmic solution INSTILL 1 DROP INTO BOTH EYES EVERY DAY AT NIGHT 12/27/19 25 Active prednisoLONE acetate (PRED FORTE) 1 % ophthalmic suspension instill 1 drop into left eye 4 times a day 01/05/20 Active timolol (TIMOPTIC) 0.5 % ophthalmic solution instill 1 drop into left eye twice a day 12/18/19 Active Hospital, Clinic, or Other Facility Administered Medication Ordered Dose Route Frequency Start Date End Date Status methacholine challenge (PROVOCHOLINE) 0 mg/mL inhalation solution 2 mLIndications:Allergic rhinitis, unspecified seasonality, unspecified trigger,SOB (shortness of breath) 2 mL inhl Once 12/26/2024 Active ipratropium (ATROVENT) 0.02 % nebulizer solution 0.5 mgIndications:Allergic rhinitis, unspecified seasonality, unspecified trigger,SOB (shortness of breath) 0.5 mg nebu Once as needed 12/26/2024 Active ipratropium-albuteroL (DUONEB) 0.5-2.5 mg/3 mL nebulizer solution 3 mLIndications:Allergic rhinitis, unspecified seasonality, unspecified trigger,SOB (shortness of breath) 3 mL nebu Every 6 hours 12/26/2024 Active Active Problems Problem Noted Date Diagnosed Date Weight loss 12/13/2024 Thrombocytopenia ([facility] V24) 12/13/2024 Oral candidiasis 12/13/2024 Dysphagia 12/13/2024 Tachycardia 12/13/2024 Type 2 diabetes mellitus wit h other specified complication ([facility] V24, [facility] V28) 11/12/2024 Primary hypertension 11/12/2024 Adjustment disorder with depressed mood 04/26/19 Type II diabetes mellitus wi th neurological manifestations ([facility] V24, [facility] V28) 01/18/2019 Renal cyst 04/09/2018 Prostate enlargement 12/29/2016 Blindness of left eye 09/24/2015 Overview (01/04/2024): 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 Diastasis recti 03/20/2015 Low HDL (under 40) 02/18/2015 Lipoma of breast 02/19/2014 Breast mass in male 02/12/2014 Hand pain 12/30/2013 Microalbuminuria 06/07/2013 DM (diabetes mellitus) type II controlled with renal manifestation ([facility] V24, [facility] V28) 08/08/2012 Overview (01/04/2024): Microalbumin 48 on 04/17/2011 Allergic rhinitis 06/27/2012 Essential hypertension, benign 06/27/2012 Depression 10/01/2010 Hyperlipidemia with target LDL less than 100 07/2007 Overview (01/04/2024): IMO update Chest pain, unspecified 02/27/2008 Obesity, unspecified 02/27/2008 Premature ejaculation 02/27/2008 Encounters Date Type Department Care Team Description 01/17/2025 Results Follow-Up Gastroenterology - [place] [address] [place] [phone] Pierre Ramires DO 01/15/2025 9:29 AM EDT Anesthesia Event [facility] [address] [place] [phone] Neftali Bonds DO Chang, Daniel J, MD 01/15/2025 8:36 AM EDT - 01/15/2025 11:59 PM EDT Hospital Encounter [facility] [address] [place] [phone] Pierre Ramires DO Steele, Matthew G, CRNA Walsh, Michael, DO Colon cancer screening Discharge Disposition: Home or Self Care 01/08/2025 Telephone Gastroenterology - [address] [place] [phone] Gilbert Huffman MD 01/07/2025 Results Follow-Up Adult Medicine [address] [phone] Octavia Marie MD 12/26/2024 9:04 AM EDT - 12/26/2024 11:59 PM EDT Hospital Encounter [facility] [address] [place] [phone] Tachycardia (Primary Dx); Oral candidiasis; Thrombocytopenia (CMS/HCC V24); Weight loss; Primary hypertension; Renal cyst; Prostate enlargement; Premature ejaculation; Microalbuminuria; Low HDL (under 40); Lipoma of breast; Hyperlipidemia with target LDL less than 100; Essential hypertension, benign; Diastasis recti; Breast mass in male; Adjustment disorder with depressed mood; Type II diabetes mellitus with neurological manifestations ([facility] V24, [facility] V28); Allergic rhinitis, unspecified seasonality, unspecified trigger; SOB (shortness of breath) Discharge Disposition: Home or Self Care 12/16/2024 12:39 PM EDT - 12/16/2024 11:59 PM EDT Hospital Encounter [facility] [address] [place] [address] Dysphagia, unspecified type Discharge Disposition: Home or Self Care 12/13/2024 1:00 PM EDT Office Visit Adult [address] [phone] Octavia Marie MD Tachycardia (Primary Dx); Dysphagia, unspecified type; Oral candidiasis; Thrombocytopenia ([facility] V24); Weight loss; Unintentional weight loss 12/12/2024 10:50 AM EDT - 12/12/2024 11:59 PM EDT Hospital Encounter [facility] [address] [place] [phone] SOB (shortness of breath) Discharge Disposition: Home or Self Care 12/11/2024 Telephone Adult [address] [phone] Octavia Marie MD 12/11/[address] [phone] Octavia Marie MD 12/06/2024 8:30 AM EDT Office Visit Adult [address] [phone] Octavia Marie MD Dizziness (Primary Dx); Elevated BUN; Type 2 diabetes mellitus with other specified complication, unspecified whether long-term insulin use ([facility] V24, [facility] V28); Essential hypertension, benign; Hyperlipidemia with target LDL less than 100; SOB (shortness of breath) 12/06/2024 Telephone Adult Medicine [address] [phone] Lola Alcantara [place] 12/03/2024 Telephone Adult [address] [phone] Octavia Marie MD 12/03/[address] [phone] Octavia Marie MD 11/12/2024 1:20 PM EDT Lab Draw Station [address] Preop examination; Type 2 diabetes mellitus without complication, without long-term current use of insulin ([facility] V24, [facility] V28); Hyperlipidemia, unspecified hyperlipidemia type 11/12/2024 12:30 PM EDT Consult [address] [phone] Octavia Marie MD Preop examination (Primary Dx); Type 2 diabetes mellitus with other specified complication, unspecified whether long-term insulin use ([facility] V24, [facility] V28); Primary hypertension 11/06/2024 1:00 PM EDT Office Visit [address] [phone] Kam Sanchez NP Ear itch (Primary Dx); Controlled type 2 diabetes mellitus with other diabetic kidney complication, without long-term current use of insulin ([facility] V24, [facility] V28); Essential hypertension, benign; Hyperlipidemia with target LDL less than 100; Benign prostatic hyperplasia without lower urinary tract symptoms from Last 3 Months Immunizations Immunization Administration Dates Next Due Influenza trivalent, with pr eservative (Fluzone; Afluria) 6mo and older 12/24/2010,01/13/2010 Influenza, Unspecified 01/18/2013 Moderna SARS-CoV-2 COVID-19, mRNA, LNP-S, preservative free 09/07/2020,08/10/2020 Pneumococcal conjugate 20 va lent (Prevnar 20, PCV 20) 2mo and older 09/08/2023 Pneumococcal polysaccharide 23 valent (Pneumovax 23) 2yo and older 11/11/2013 RSV, bivalent, protein subun it RSVpreF, 0.5mL, Preservative Free (Arexvy) 50yo and older 09/08/2023 Respiratory syncytial virus (RSV), unspecified 0 09/08/2023 Td Tetanus diptheria (Tdvax) 7yo and older 01/18 Tdap Tetanus diptheria acell ular pertussis (Boostrix; Adacel) 7yo and older 07/11/2008 Zoster Live 01/07/2023 Zoster recombinant (Shingrix) 19yo and older 10/2022,10/16/2022 Surgical History Surgery Date Site/Laterality Comments COLONOSCOPY 2013 PROCEDURE: [place] COLONOSCOPY FLX DX W/COLLJ SPEC WHEN PFRMD; COMMENT: normal COLONOSCOPY PROCEDURE: HISTORICAL COLONOSCOPY ESOPHAGOGASTRODUODENOSCOPY HAND TENDON SURGERY Left EYE SURGERY Left GLAUCOMA Medical History Medical History Date Comments Hyperlipemia DX:Hyperlipemia Unspecified disorder of lipo id metabolism 03/06/2008 DX:Unspecified disorder of l ipoid metabolism Unspecified essential hypertension DX:Unspecified essential hypertension Diabetes mellitus type 2, co ntrolled ([facility] V24, [facility] V28) 06/21/2010 DX:Diabetes mellitus type 2 , controlled (HCC) Type II or unspecified type diabetes mellitus with unspecified complication, not stated as uncontrolled DX:Type II or unspecified ty pe diabetes mellitus with unspecified complication, not stated as uncontrolled Essential hypertension, benign 06/27/2012 D X:Essential hypertension, benign Diastasis recti 03/20/2015 DX:Diastasis rec ti GERD (gastroesophageal reflu x disease) Unspecified glaucoma(365.9) DX:U nspecified glaucoma(365.9) Family History Medical History Relation Name Comments [...] Sign Reading Time Taken Comments Blood Pressure 120/77 01/15/2025 10:12 AM EDT Pulse 47 01/15/2025 10:12 AM EDT Temperature 36.1 C (97 F) 01/15/2025 9:52 AM EDT Respiratory Rate 19 01/15/2025 10:12 AM EDT Oxygen Saturation 99% 01/15/2025 10:12 AM EDT Inhaled Oxygen Concentration - - Weight 76.7 kg (169 lb) 01/15/2025 9:23 AM EDT Height 172.7 cm (5' 8 ) 01/15/2025 9:23 AM EDT Body Mass Index 25.7 01/15/2025 9:23 AM EDT Plan of Treatment Upcoming Encounters Date Type Department Care Team (Late st Contact Info) Description 02/05/2025 12:30 PM EST Consult Adult Medicine [facility] [place] [address] [place] [phone] Octavia Marie MD [address] [place] [address] 02/06/2025 2:30 PM EST Ancillary Procedure [facility] - [facility] [address] [facility] [address] [place] [phone] 02/10/2025 10:45 AM EST Office Visit Orthopedic Surgery - [place] [address] [facility] [address] [place] [phone] Willie Barth DPM [address] [facility] [address] [place] [address] 02/25/2025 10:45 AM EST Appointment [facility] [address] [place] [phone] Janice García, DONOVAN 03/04/2025 7:45 AM EST Office Visit Adult Medicine [facility] [place] [address] [place] [phone] Octavia Marie MD [address] [place] [address] Health Maintenance Due Date Last Done Comments Social Influencers of Health Screening 03/12/2022 Zoster Vaccines (2 of 2) 03/04/2023 023, 01/07/2023, 10/16/2022 Depression Screening 04/03/2024 03/05/2024 Diabetes: Annual Retina [...] 11/12/2025 11/12/2024, 11/06/2024, 06/05/2024, Additional history exists Colorectal Cancer Screening: Colonoscopy 01/16/2028 01/15/2025, 05/30/2013 DTaP,Tdap,and Td Vaccines (3 - Td or [...] on patient's age to complete this topic Goals Goal Patient Goal Type Associated Problems Recent Progress Patient-Stated? Author Autogenera guillermina Goal Care Plan Autogenerated Problem No Everardo, Jessica Douglass Procedures Procedure Name Priority Date/Time Associated Diagnosis Comments COLONOSCOPY Routine 01/15/2025 9:51 AM EDT Colon cancer screening TISSUE EXAM Routine 01/15/2025 9:39 AM EDT Colon cancer screening HC EVALUATION BRONCHOSPASM PROVOCATION W/ADMINISTERED AGENTS Routine 12/26/2024 10:21 AM EDT SOB (shortness of breath) US HEAD NECK SOFT TISSUE Routine 12/16/2024 1:08 PM EDT Dysphagia, unspecified type ECG 12-LEAD Routine 12/13/2024 2:25 PM EDT Tachycardia HC SPIROMETRY BRONCHODILATION RESPONSIVENESS PRE/POST BRONCHODILATOR ADMINISTRATION Routine 12/12/2024 11:45 AM EDT SOB (shortness of breath) EXTERNAL XRAY REPORT Routine 12/09/2024 3:57 PM EDT MICROALBUMIN CREATININE URINE RATIO Routine 11/12/2024 1:26 PM EDT Type 2 diabetes mellitus without complication, without long-term current use of insulin ([facility] V24, [facility] V28) CBC WITH AUTO DIFFERENTIAL Routine 11/12/2024 1:18 PM EDT Preop examination HEMOGLOBIN A1C Routine 11/12/2024 1:18 PM EDT Type 2 diabetes mellitus without complication, without long-term current use of insulin ([facility] V24, [facility] V28) LIPID PANEL WITH REFLEX TO DIRECT LDL Routine 11/12/2024 1:18 PM EDT Hyperlipidemia, unspecified hyperlipidemia type CBC AND DIFFERENTIAL Routine 11/12/2024 1:18 PM EDT Preop examination HEMOGLOBIN A1C Routine 11/06/2024 1:46 PM EDT Type 2 diabetes mellitus without complication, without long-term current use of insulin ([facility] V24, [facility] V28) LIPID PANEL WITH REFLEX TO DIRECT LDL Routine 11/06/2024 1:46 PM EDT Hyperlipidemia, unspecified hyperlipidemia type MICROALBUMIN CREATININE URINE RATIO Routine 11/06/2024 1:46 PM EDT Type 2 diabetes mellitus without complication, without long-term current use of insulin ([facility] V24, [facility] V28) BASIC METABOLIC PANEL Routine 11/06/2024 1:46 PM EDT Controlled type 2 diabetes mellitus with other diabetic kidney complication, without long-term current use of insulin ([facility] V24, [facility] V28) Essential hypertension, benign Hyperlipidemia with target [...] Recently Relevant to Health Maintenance Results * COLONOSCOPY Anesthesia - MAC; [facility] ENDOSCOPY (01/15/2025 9:51 AM EDT) Anatomical Region Laterality Modality Endoscopy 01/15/2025 9:25 AM EDT Impressions 01/15/2025 9:50 AM EDT - Hemorrhoids found on perianal exam. - Four 6 to 12 mm polyps in the rectum, in the sigmoid colon and in the descending colon, removed with a cold snare. Resected and retrieved. Clips were placed. Clip senior technical program manager: Flux. - Two 2 to 3 mm polyps in the rectum and in the sigmoid colon, removed with a jumbo cold forceps. Resected and retrieved. - The examination was otherwise normal on direct and retroflexion views. Recommendation: - Discharge patient to home. - High fiber diet. - Continue present medications. - Await pathology results. - Repeat colonoscopy for surveillance based on pathology results. Narrative 01/15/2025 9:50 AM EDT [facility] GI Patient Name: Holland Washburn Procedure Date: 01/15/2025 9:25 AM Date of : 1960 Age: 64 Gender: Male Note Status: Finalized Attending MD: Pierre Ramires DO, [id number] Procedure Date No Time: 01/15/2025 Procedure: Colonoscopy Indications: Screening for colorectal malignant neoplasm Providers: Pierre Ramires DO Referring MD: Octavia Marie MD Medicines: Monitored Anesthesia Care Complications: No immediate complications. Estimated blood loss: Minimal. Estimated Blood Loss: Estimated blood loss was minimal. Procedure: Pre-Anesthesia Assessment: - - Prior to the procedure, a History and Physical was performed, and patient medications and allergies were reviewed. The patient is competent. The risks and benefits of the procedure and the sedation options and risks were discussed with the patient. All questions were answered and informed consent was obtained. Patient identification and proposed procedure were verified by the physician, the nurse, the anesthesiologist, the coding team lead and the optoelectronic technician in the pre-procedure area in the endoscopy suite. Mental Status Examination: alert and oriented. Airway Examination: normal oropharyngeal airway and neck mobility. Respiratory Examination: clear to auscultation. CV Examination: normal. Prophylactic Antibiotics: The patient does not require prophylactic antibiotics. Prior Anticoagulants: The patient has taken no anticoagulant or antiplatelet agents. ASA Grade Assessment: II - A patient with mild systemic disease. After reviewing the risks and benefits, the patient was deemed in satisfactory condition to undergo the procedure. The anesthesia plan was to use monitored anesthesia care (MAC). Immediately prior to administration of medications, the patient was re-assessed for adequacy to receive sedatives. The heart rate, respiratory rate, oxygen saturations, blood pressure, adequacy of pulmonary ventilation, and response to care were monitored throughout the procedure. The physical status of the patient was re-assessed after the procedure. After I obtained informed consent, the scope was passed under direct vision. Throughout the procedure, the patient's blood pressure, pulse, and oxygen saturations were monitored continuously. The Colonoscope was introduced through the anus and advanced to the cecum, identified by appendiceal orifice and ileocecal valve. The colonoscopy was performed without difficulty. The patient tolerated the procedure well. The quality of the bowel preparation was good. Findings: Hemorrhoids were found on perianal exam. Four sessile and semi-pedunculated polyps were found in the rectum, sigmoid colon and descending colon. The polyps were 6 to 12 mm in size. These polyps were removed with a cold snare. Resection and retrieval were complete. To stop active bleeding, two hemostatic clips were successfully placed. Clip senior technical program manager: Flux. There was no bleeding at the end of the procedure. Estimated blood loss was minimal. Two sessile polyps were found in the rectum and sigmoid colon. The polyps were 2 to 3 mm in size. These polyps were removed with a jumbo cold forceps. Resection and retrieval were complete. Verification of patient identification for the specimen was done. Estimated blood loss was minimal. The exam was otherwise without abnormality on direct and retroflexion views. Procedure Code(s): --- Professional --- 72567, Colonoscopy, flexible; with removal of tumor(s), polyp(s), or other lesion(s) by snare technique 83009, 59, Colonoscopy, flexible; with biopsy, single or multiple Diagnosis Code(s): --- Professional --- Z12.11, Encounter for screening for malignant neoplasm of colon K64.9, Unspecified hemorrhoids D12.4, Benign neoplasm of descending colon D12.8, Benign neoplasm of rectum D12.5, Benign neoplasm of sigmoid colon CPT copyright 2020 [employer]. All rights reserved. The codes documented in this report are preliminary and upon apparel trimmings sales representative review may be revised to meet current compliance requirements. PIERRE Ramires DO 01/15/2025 9:50:38 AM This report has been signed electronically.Pierre Ramires DO Number of Addenda: 0 Note Initiated On: 01/15/2025 9:25 AM Scope Withdrawal Time: 0 hours 12 minutes 4 seconds Scope In: 9:34:19 AM Scope Out: 9:49:04 AM Endoscopy Department at [facility] - [address] [place] [id number] Procedure Note Pierre Ramires DO - 01/15/2025 [facility] GI Patient Name: Holland Washburn Procedure Date: 01/15/2025 9:25 AM Date of : 1960 Age: 64 Gender: Male Note Status: Finalized Attending MD: Pierre Ramires DO, [id number] Procedure Date No Time: 01/15/2025 Procedure: Colonoscopy Indications: Screening for colorectal malignant neoplasm Providers: Pierre Ramires DO Referring MD: Octavia Marie MD Medicines: Monitored Anesthesia Care Complications: No immediate complications. Estimated blood loss: Minimal. Estimated Blood Loss: Estimated blood loss was minimal. Procedure: Pre-Anesthesia Assessment: - - Prior to the procedure, a History and Physicalwas performed, and patient medications and allergieswere reviewed. The patient is competent. The risks and benefits of the procedure and the sedation optionsand risks were discussed with the patient. Allquestions were answered and informed consent was obtained. Patient identification and proposed procedure were verified by the physician, the nurse, the anesthesiologist, the coding team lead and thetechnician in the pre-procedure area in the endoscopy suite. Mental Status Examination: alert and oriented.Airway Examination: normal oropharyngeal airway and neck mobility. Respiratory Examination: clear to auscultation. CV Examination: normal. Prophylactic Antibiotics: The patient does not requireprophylactic antibiotics. Prior Anticoagulants: The patient has taken no anticoagulant or antiplatelet agents. ASA Grade Assessment: II - A patient with mild systemic disease. After reviewing the risks and benefits,the patient was deemed in satisfactory condition to undergo the procedure. The anesthesia plan was touse monitored anesthesia care (MAC). Immediately priorto administration of medications, the patient was re-assessed for adequacy to receive sedatives. The heart rate, respiratory rate, oxygen saturations, blood pressure, adequacy of pulmonary ventilation,and response to care were monitored throughout the procedure. The physical status of the patient was re-assessed after the procedure. After I obtained informed consent, the scope was passed under direct vision. Throughout theprocedure, the patient's blood pressure, pulse, and oxygen saturations were monitored continuously. The Colonoscope was introduced through the anus and advanced to the cecum, identified by appendiceal orifice and ileocecal valve. The colonoscopy was performed without difficulty. The patient tolerated the procedure well. The quality of the bowel preparation was good. Findings: Hemorrhoids were found on perianal exam. Four sessile and semi-pedunculated polyps werefound in the rectum, sigmoid colon and descending colon.The polyps were 6 to 12 mm in size. These polyps were removed with a cold snare. Resection and retrieval were complete. To stop active bleeding, twohemostatic clips were successfully placed. Clip senior technical program manager: Flux. There was no bleeding at the endof the procedure. Estimated blood loss was minimal. Two sessile polyps were found in the rectum and sigmoid colon. The polyps were 2 to 3 mm in size. These polyps were removed with a jumbo coldforceps. Resection and retrieval were complete. Verificationof patient identification for the specimen was done. Estimated blood loss was minimal. The exam was otherwise without abnormality ondirect and retroflexion views. Procedure Code(s): --- Professional --- 43001, Colonoscopy, flexible; with removal of tumor(s), polyp(s), or other lesion(s) by snare technique 23088, 59, Colonoscopy, flexible; with biopsy,single or multiple Diagnosis Code(s): --- Professional --- Z12.11, Encounter for screening for malignantneoplasm of colon K64.9, Unspecified hemorrhoids D12.4, Benign neoplasm of descending colon D12.8, Benign neoplasm of rectum D12.5, Benign neoplasm of sigmoid colon CPT copyright 2020 [employer]. All rights reserved. The codes documented in this report are preliminary and upon apparel trimmings sales representative reviewmay be revised to meet current compliance requirements. PIERRE Ramires DO 01/15/2025 9:50:38 AM This report has been signed electronically.Pierre Ramires DO Number of Addenda: 0 Note Initiated On: 01/15/2025 9:25 AM Scope Withdrawal Time: 0 hours 12 minutes 4 seconds Scope In: 9:34:19 AM Scope Out: 9:49:04 AM Endoscopy Department at [facility] - [address] [place] [phone] IMPRESSION: - Hemorrhoids found on perianal exam. - Four 6 to 12 mm polyps in the rectum, in thesigmoid colon and in the descending colon, removed with acold snare. Resected and retrieved. Clips were placed.Clip senior technical program manager: Flux. - Two 2 to 3 mm polyps in the rectum and in the sigmoid colon, removed with a jumbo cold forceps. Resected and retrieved. - The examination was otherwise normal on directand retroflexion views. Recommendation: - Discharge patient to home. - High fiber diet. - Continue present medications. - Await pathology results. - Repeat colonoscopy for surveillance based on pathology results. us Pierre Ramires DO GI~PROCEDURE ORDERABLES Final Re sult * Tissue exam (01/15/2025 9:39 AM EDT) Final Diagnosis A. Polyp, descending colon, polypectomy: - Fragments of edematous colonic mucosa with scattered superficially dilated and focally serrated crypts and reactive lymphoid aggregates. (See note.) Note: Multiple additional levels are examined. It is possible that the superficially dilated and serrated crypts represent a diminutive hyperplastic polyp; however, it is also possible that the reactive lymphoid aggregates contributed to the endoscopic appearance of a polyp. B. Polyps, sigmoid colon, polypectomy: - Tubular adenoma(s) (three fragments). C. Polyps (x2 per specimen label), rectum, polypectomy: - Tubular adenoma (largest fragment). - Hyperplastic polyp (two smaller fragments). Note: Multiple additional levels are examined for blocks A1 and B1. 01/17/2025 10:34 AM [facility] at 1034 EDT Gross Description A. Large Intestine, Left/Descending Colon, polyp: Labeled descending colon polyp . Received in formalin are six irregular disrupted gonzalez mucosal tissue fragments, ranging from 0.2 cm to 0.4 cm in greatest dimension, which are wrapped in paper and submitted in toto in one cassette, six pieces, multiple levels on one slide. B. Large Intestine, Sigmoid Colon, polyps x 3: Labeled Sig colon polyp x 3 . Received in formalin are three irregular gonzalez-pink mucosal tissue fragments, ranging from 0.2 cm to 0.5 cm in greatest dimension, which are wrapped in paper and submitted in toto in one cassette, three pieces, multiple levels on one side. C. Large Intestine, Rectum, polyps x 2: Labeled LI rectum polyp x 2 . Received in formalin is a 0.9 x 0.7 x 0.6 cm gonzalez-pink mucosal polyp. The resection margin is inked blue. The polyp is bisected. Also received in the same container are two additional gonzalez mucosal tissue fragments, each measuring approximately 0.1 cm in greatest dimension. The specimen is entirely submitted in two cassettes as follows: 1, bisected polyp, two pieces, multiple levels 2, additional tissue fragments, two pieces, multiple levels. ALEJO 01/17/2025 10:34 AM [facility] Disclaimer Unless otherwise specified, all tissue is 10% NB formalin fixed and paraffin embedded. 01/17/2025 10:34 AM [facility] Tissue Descending colon structure / Unknown 01/15/2025 9:39 AM EDT 01/15/2025 10:44 AM EDT Tissue specimen (specimen) Sigmoid colon structure / Unknown 01/15/2025 9:43 AM EDT 01/15/2025 10:44 AM EDT Tissue specimen (specimen) Rectum structure / Unknown 01/15/2025 9:45 AM EDT 01/15/2025 10:44 AM EDT us Pierre Ramires DO LAB PATHOLOGY ORDERABLES Final R esult [facility] H[facility] LAB [address] [place] [address], [place] [phone] * Pulmonary function testing: Bronchial Challenge with Methacholine, Spirometry, Spirometry with Bronchodilator, Sputum Induction, Vital Capacity Test (12/26/2024 10:21 AM EDT) Narrative Nick Mcgregor MD - 12/30/2024 7:15 PM EDT Table formatting from the original result was not included. Images from the original result were not included. [facility] Lab [address] [place] [address] Pulmonary Functions Report Date of service: 12/26/24 Patient Name: Holland Washburn Date of : 1960 Age: 64 y.o. Gender: male Ordering Provider: Octavia Marie MD Diagnosis listed on Order: SOB (shortness of breath) Reason for Exam: Order Questions Answers Reason for Exam: SOB Which PFTs would you like to perform? Bronchial Challenge with Methacholine,Spirometry,Spirometry with Bronchodilator,Sputum Induction,Vital Capacity Test Methacholine challenge test The patient's baseline FEV1 is 101% normal, after 5 doses of increasing methacholine. There was no significant decline in FEV1 In summary, this is a negative methacholine challenge test us Octavia Marie MD PFT ORDERABLES Final Resul t * US Head Neck Soft Tissue (12/16/2024 1:08 PM EDT) Anatomical Region Laterality Modality Head and Neck Radiographic Liliya ging 12/17/2024 1:50 AM EDT Narrative 12/17/2024 1:50 AM EDT Thyroid ultrasound. History dysphagia. No prior studies are available for comparison. Thyroid gland was visualized was normal size and echogenicity and normal flow on color Doppler examination. Right thyroid lobe measures 3.8 x 1.1 x 1.4 cm. Left thyroid lobe measures 3.6 x 1 x 1.2 cm. Isthmus measures 2 mm. CONCLUSIONS: Normal thyroid ultrasound. -------- FINAL REPORT -------- Dictated By: Janice Urban Dictated Date: 12/17/2024 01:50 ET Assigned Physician: Janice Urban Reviewed and Electronically Signed By: Janice Urban Signed Date: 12/17/2024 01:50 ET Workstation ID: [id number] Transcribed By: Self Edit Transcribed Date: 12/17/2024 01:50 ET Procedure Note Janice Urban MD - 12/17/2024 Thyroid ultrasound. History dysphagia. No prior studies are available for comparison. Thyroid gland was visualized was normal size and echogenicity and normalflow on color Doppler examination. Right thyroid lobe measures 3.8 x 1.1 x 1.4 cm. Left thyroid lobe measures3.6 x 1 x 1.2 cm. Isthmus measures 2 mm. CONCLUSIONS: Normal thyroid ultrasound. -------- FINAL REPORT -------- Dictated By: Janice Urban Dictated Date: 12/17/2024 01:50 ET Assigned Physician: Janice Urban Reviewed and Electronically Signed By: Janice Urban Signed Date: 12/17/2024 01:50 ET Workstation ID: [id number] Transcribed By: Self Edit Transcribed Date: 12/17/2024 01:50 ET us Octavia Marie MD IMG US PROCEDURES Final Res ult * ECG 12 lead (12/13/2024 2:25 PM EDT) Octavia Marie MD ECG ORDERABLES Final Resul t * Pulmonary function testing: Carbon Monoxide Diffusing Capacity, Nitrogen Wash Out, Spirometry with Bronchodilator (12/12/2024 11:45 AM EDT) Narrative Nick Mcgregor MD - 12/14/2024 12:25 PM EDT Table formatting from the original result was not included. Images from the original result were not included. [facility] Lab [address] [place] [id number] Pulmonary Functions Report Date of service: 12/12/24 Patient Name: Holland Washburn Date of : 1960 Age: 64 y.o. Gender: male Ordering Provider: Octavia Marie MD Diagnosis listed on Order: SOB (shortness of breath) Reason for Exam: Order Questions Answers Reason for Exam: SHORTNESS OF BREATH Which PFTs would you like to perform? Carbon Monoxide Diffusing Capacity,Nitrogen Wash Out,Spirometry with Bronchodilator SPIROMETRY: FEV1 is 109 % predicted and an FVC is 103 % predicted. The FEV1/FVC ratio is 106% of normal, no response to bronchodilators noted. LUNG VOLUMES: Total lung capacity (TLC): 77% predicted. Residual volume (RV): 52% predicted RV/TLC ratio is 69% of normal DIFFUSION CAPACITY: DLCO 110% predicted. DlCO/VA 111% of predicted COMPARISONS: INTERPRETATION: This pulmonary function test shows normal spirometry and diffusion. There is slight decrease in the total lung capacity. Essentially this is a normal PFT Nick Mcgregor MD Octavia Marie MD PFT ORDERABLES Final Resul t * External Xray Report (12/09/2024 3:57 PM EDT) Anatomical Region Laterality Modality Radiographic Liliya ging Historical Provider IMG XR PROCEDURES Final R esult * Microalbumin creatinine urine ratio (11/12/2024 1:26 PM EDT) Only the most recent of2 resultswithin the time period is included. Creatinine, Urine 138.0 mg/dL LAB CHEMISTRY METHOD 11/12/2024 6:44 PM EDT [facility] Microalb, Ur 9.2 0.0 - 29.0 mg/L LAB CHEMISTRY METHOD 11/12/2024 6:44 PM EDT [facility] Microalb/Creat Ratio 7 <30 mg/g creat LAB CHEMISTRY METHOD 11/12/2024 6:44 PM EDT [facility] Urine Urine specimen obtained by clean catch procedure / Unknown Non-blood Collection / Unknown 11/12/2024 1:26 PM EDT 11/12/2024 1:26 PM EDT us Octavia Marie MD LAB URINE ORDERABLES Final Result [facility] [address] [place] [address], [place] [phone] * (ABNORMAL) Lipid panel with reflex to direct LDL (11/12/2024 1:18 PM EDT) Only the most recent of2 resultswithin the time period is included. Cholesterol 92 0 - 200 mg/dL LAB CHEMISTRY METHOD 11/12/2024 5:41 PM EDT [facility] Triglycerides 106 0 - 150 mg/dL LAB CHEMISTRY METHOD 11/12/2024 5:41 PM EDT [facility] HDL 30(L) >=40 mg/dL LAB CHEMISTRY METHOD 11/12/2024 5:41 PM EDT [facility] LDL Calculated 41 0 - 100 mg/dL LAB CHEMISTRY METHOD 11/12/2024 5:41 PM EDT [facility] Comment:Estimated LDL Calcul ated using equation: Total cholesterol - HDL cholesterol - (Triglycerides/5) VLDL Cholesterol Ike 21.2 mg/dL LAB CHEMISTRY METHOD 11/12/2024 5:41 PM EDT [facility] Non HDL Chol. (LDL+VLDL) 62 <145 mg/dL LAB CHEMISTRY METHOD 11/12/2024 5:41 PM EDT [facility] Chol/HDL Ratio 3.1 0.0 - 4.4 LAB CHEMISTRY METHOD 11/12/2024 5:41 PM EDT [facility] Blood Venous blood specimen / Unknown Venipuncture / Unknown 11/12/2024 1:18 PM EDT 11/12/2024 1:18 PM EDT us Octavia Marie MD LAB BLOOD ORDERABLES Final Result [facility] [address] [place] [address], * CBC auto differential (11/12/2024 1:18 PM EDT) WBC 7.1 4.8 - 10.8 K/mcL LAB HEMETOLOGY METHOD 11/12/2024 5:07 PM EDT [facility] RBC 5.20 4.50 - 5.50 M/mcL LAB HEMETOLOGY METHOD 11/12[facility]2024 5[facility] Hemoglobin 14.1 13.5 - 17.5 g/dL LAB HEMETOLOGY METHOD 11/12/2024 5:07 PM EDT [facility] Hematocrit 44.1 42.0 - 54.0 % LAB HEMETOLOGY METHOD 11/12/2024 5:07 PM EDT [facility] MCV 84.5 79.0 - 98.0 FL LAB HEMETOLOGY METHOD 11/12/2024 5:07 [facility] MCH 27.0 27.0 - 32.0 pcg LAB HEMETOLOGY METHOD 11/12/2024 5:07 PM EDT [facility] MCHC 32.0 32.0 - 37.0 g/dL LAB HEMETOLOGY METHOD 11/12/2024 5:07 [facility] RDW 13.0 11.0 - 15.0 % LAB HEMETOLOGY METHOD 11/12/2024 5:07 PM [facility] Platelets 197 130 - 400 K/mcL LAB HEMETOLOGY METHOD 11/12/2024 5:07 PM [facility] MPV 10.5 7.0 - 11.0 FL LAB HEMETOLOGY METHOD 11/12/2024 5:07 PM [facility] NRBC 0.0 <1.0 % LAB HEMETOLOGY METHOD 11/12/2024 5:07 PM [facility] NRBC Absolute 0.00 <0.10 K/mcL LAB HEMETOLOGY METHOD 11/12/2024 5:07 PM [facility] Neutrophils Relative 59.1 % LAB HEMETOLOGY METHOD 11/12/2024 5:07 PM [facility] Lymphocytes Relative 26.6 % LAB HEMETOLOGY METHOD 11/12/2024 5:07 PM [facility] Monocytes Relative 10.9 % LAB HEMETOLOGY METHOD 11/12/2024 5:07 PM [facility] Eosinophils Relative 2.5 % LAB HEMETOLOGY METHOD 11/12/2024 5:07 PM [facility] Basophils Relative 0.6 % LAB HEMETOLOGY METHOD 11/12/2024 5:07 PM [facility] Immature Granulocytes Relative 0.3 % LAB HEMETOLOGY METHOD 11/12/2024 5:07 PM [facility] Neutrophils Absolute 4.17 1.50 - 7.00 K/mcL LAB HEMETOLOGY METHOD 11/12/2024 5:07 PM EDT [facility] Lymphocytes Absolute 1.88 1.00 - 5.00 K/mcL LAB HEMETOLOGY METHOD 11/12/2024 5:07 PM EDT [facility] Monocytes Absolute 0.77 0.20 - 1.00 K/[facility] LAB HEMETOLOGY METHOD 11/12/2024 5:07 PM EDT [facility] Eosinophils Absolute 0.18 0.00 - 0.50 K/[facility] LAB HEMETOLOGY METHOD 11/12/2024 5:07 PM EDT [facility] Basophils Absolute 0.04 0.00 - 0.20 K/[facility] LAB HEMETOLOGY METHOD 11/12/2024 5:07 PM EDT [facility] Immature Granulocytes Absolute 0.02 0.00 - 0.03 K/[facility] LAB HEMETOLOGY METHOD 11/12/2024 5:07 PM EDT [facility] Blood Venous blood specimen / Unknown Venipuncture / Unknown 11/12/2024 1:18 PM EDT 11/12/2024 1:18 PM EDT us Octavia Marie MD LAB BLOOD ORDERABLES Final Result [facility] [address] [place] [address], * (ABNORMAL) Hemoglobin A1c (11/12/2024 1:18 PM EDT) Only the most recent of2 resultswithin the time period is included. Hemoglobin A1C 6.5(H) <6.5 % LAB CHEMISTRY METHOD 11/12/2024 8:23 PM EDT [facility] Mean Bld Glu Estim. 140 mg/dL LAB CHEMISTRY METHOD 11/12/2024 8:23 PM EDT [facility] Blood Venous blood specimen / Unknown Venipuncture / Unknown 11/12/2024 1:18 PM EDT 11/12/2024 1:18 PM EDT us Octavia Marie MD LAB BLOOD ORDERABLES Final Result [facility] [address] [place] [address], [place] [phone] * (ABNORMAL) Basic metabolic panel (11/06/2024 1:46 PM EDT) Pathologist [facility] Sodium 139 133 - 145 mmol/L LAB CHEMISTRY METHOD 11/06/2024 4:52 PM EDT [facility] Potassium 3.9 3.5 - 5.5 mmol/L LAB CHEMISTRY METHOD 11/06/2024 4:52 PM [facility] Chloride 107 96 - 110 mmol/L LAB CHEMISTRY METHOD 11/06/2024 4:52 PM [facility] CO2 28 21 - 32 mmol/L LAB CHEMISTRY METHOD 11/06/2024 4:52 PM [facility] Anion Gap 4 3 - 11 LAB CHEMISTRY METHOD 11/06/2024 4:52 PM [facility] Glucose 114(H) 70 - 100 mg/dL LAB CHEMISTRY METHOD 11/06/2024 4:52 PM [facility] BUN 16 5 - 25 mg/dL LAB CHEMISTRY METHOD 11/06/2024 4:52 PM [facility] Creatinine 1.02 0.70 - 1.30 mg/dL LAB CHEMISTRY METHOD 11/06/2024 4:52 PM [facility] eGFR 83 >=60 mL/min/1. 73m2 LAB CHEMISTRY METHOD 11/06/2024 4:52 PM [facility] Comment:Calculation based on the Chronic Kidney Disease Epidemiology Collaboration (CKD-EPI) equation refit without adjustment for race. BUN/Creatinine Ratio 15.7 LAB CHEMISTRY METHOD 11/06/2024 4:52 PM EDT [facility] Calcium 9.2 8.5 - 10.5 mg/dL LAB CHEMISTRY METHOD 11/06/2024 4:52 PM EDT [facility] Blood Venous blood specimen / Unknown Venipuncture / Unknown 11/06/2024 1:46 PM EDT 11/06/2024 1:46 PM EDT Kam Sanchez COMPLEX CASE MANAGER LAB BLOOD ORDERABLES Final R esult Performing Organization Address City/[facility]/ZIP Co de Phone Number [facility] [address] [place] [address], [place] [phone] * Hepatitis C antibody (03/06/2024 8:40 AM EST) Hepatitis C Antibody Negative Negative LAB CHEMISTRY METHOD 03/06/2024 2:12 PM EST [facility] Blood Venous blood specimen / Unknown Venipuncture / Unknown 03/06/2024 8:40 AM EST 03/06/2024 8:40 AM EST Kam Sanchez COMPLEX CASE MANAGER LAB BLOOD ORDERABLES Final R esult Performing Organization Address City/[facility] Co de Phone Number [facility] [address] [place] [address], [place] [phone] * HIV 1,2 antibody, p24 antigen with reflex to differentiation (03/06/2024 8:40 AM EST) HIV Combo AB/AG Negative Negative LAB CHEMISTRY METHOD 03/06/2024 2:13 PM EST [facility] Blood Venous blood specimen / Unknown Venipuncture / Unknown 03/06/2024 8:40 AM EST 03/06/2024 8:40 AM EST Narrative [facility] - 03/06/2024 2:13 PM EST This assay is a 4th generation assay allowing for earlier detection of HIV infection by detecting the presence of the HIV-1 p24 antigen as well as the traditional antibodies to HIV type 1 (including group O) and type 2. Use of a 4th generation assay is the current CDC recommendation for HIV screening. Kam Sanchez COMPLEX CASE MANAGER LAB BLOOD ORDERABLES Final R esult [facility] [address] [place] [address], * Diabetes Eye Exam (05/26/2023) [facility] Diabetes: Annual Retina Eye Exam Abstracted Historical Provider MD HEALTH MAINTENANCE Final Result * Diabetes Foot Exam (02/08/2023) [facility] Diabetes: Annual Foot Exam Abstracted Historical Provider HEALTH MAINTENANCE Final Result from Last 3 Months or Most Recently Relevant to Health Maintenance Additional Health Concerns Active Problems Noted Date Diagnosed Date Autogenerated Problem 01/09/2025 Insurance [facility] [employer] Care Teams Coding Specialist Relationship Specialty Start Date End Date Octavia Marie MD [address] [place] [address] PCP - General 01/19/24
--- OUTSIDE RECORDS SUMMARY | 2025-01-27 01:46 | XMS_ITS | Encounter Summary ---
Author Organization [employer] [address] Care Team Providers Care Dope Maintenance Worker Name Role Phone Octavia Marie MD Primary Care Provider Encounter Details Date Type Department Care Team (Late Contact Info) Description 01/07/2025 Results Follow-Up Adult Medicine [address] [place] [phone] Octavia Marie MD [address] [place], [place] Social History Tobacco Use Types Packs/Day [...] on file documented as of this encounter Plan of Treatment Upcoming Encounters Date Type Department Care Team (Late Contact Info) Description 02/05/2025 12:30 PM EST Consult Adult Medicine [address] [place] [phone] Octavia Marie MD [address] [place] [address] 02/06/2025 2:30 PM EST Ancillary Procedure [facility] [address] [place] [address] 02/10/2025 10:45 AM EST Office Visit Orthopedic Surgery - [place] [address] [facility] [address] [place] [phone] Willie Barth, DPM [address] [facility] [address] [place] [address] 02/25/2025 10:45 AM EST Appointment [facility] Xray [address] [place] [phone] Janice García, DONOVAN 03/04/2025 7:45 AM EST Office Visit Adult Medicine [facility] [place] [address] [place] [address] Octavia Marie MD [address] [place] [address] documented as of this encounter Visit Diagnoses Not on filedocumented in this encounter Additional Health Concerns Assessment Noted Time PHQ-9 Depression Total Score: 0 03/05/20 9:30 AM EST documented as of this encounter Care Teams Dope Maintenance Worker Relationship Specialty Start Date End Date Octavia Marie MD [address] [place] [address] PCP - General 01/19/24 documented as of this encounter
--- OUTSIDE RECORDS SUMMARY | 2025-01-27 01:46 | XMS_ITS | Encounter Summary ---
Author Organization [facility] Address [address] [facility] [address] [place] [address] Care Team Providers Care Pipeline Superintendent Name Role Phone Unavailable Primary Care Provider Unavailabl e Encounter Details Date Type Department Care Team (Late st Contact Info) Description 03/28/2023 Abstract [facility] [address] [place] [address] Nithya Neville [address] [place] [address] Social History Tobacco Use Types Packs/Day Years [...]
--- OUTSIDE RECORDS SUMMARY | 2025-01-27 01:46 | XMS_ITS | Encounter Summary ---
Author Organization [employer] [facility] Address [address] [facility] [address] [place] [address] Care Team Providers Care Refrigerator Room Clerk Name Role Phone Unavailable Primary Care Provider [...]
--- OUTSIDE RECORDS SUMMARY | 2025-01-27 01:46 | XMS_ITS | Encounter Summary ---
Author Organization [facility] [employer] [facility] Address [address] [facility] [address] [place] [address] Care Team Providers Care Show Horse Driver Name Role Phone Unavailable Primary Care Provider Unavailabl e Reason for Visit * Reason Onset Date Comments Appointment 12/20/2022 Encounter Details Date Type Department Care Team (Late st Contact Info) Description 12/20/2022 Telephone [facility] [address] [place], [place] [phone] Kelin, Nithya [address] [place] [address] Appointment Social History Tobacco Use Types Packs/Day [...]
--- OUTSIDE RECORDS SUMMARY | 2025-01-27 01:46 | XMS_ITS | Encounter Summary ---
Author Organization [employer] [facility] Address [address] [facility] [address] [place] [address] Care Team Providers Care Catalyst Impregnator Name Role Phone Unavailable Primary Care Provider Unavailabl e Encounter Details Date Type Department Care Team (Late st Contact Info) Description 01/25/[address] [facility] [address] [place] [address] Nithya Neville [address] [place] [address] Social History Tobacco Use Types Packs/Day Years [...]
--- OUTSIDE RECORDS SUMMARY | 2025-01-27 01:46 | XMS_ITS | Encounter Summary ---
Author Organization [employer] [facility] Address [address] [facility] [address] [place] [address] Care Team Providers Care Furnace Combustion Analyst Name Role Phone Unavailable Primary Care Provider [...]
[2025-01-27 01:56] VITALS: BP 120/74; PULSE 68; RESP 18; TEMP 36.8; O2SAT 98
--- NOTE | 2025-01-27 01:59 | PC.NURSE ---
pt reports L ear pain started 3 days ago, difficulty sleeping as he has increased pin/ pressure when laying don especially on the L side. Pt was woken up at midnight from the pain. Reports taking ear drops that were prescribed for a previous ear ache with no relief. denies headache or dizziness at this time but states he had headache and dizziness yesterday. reports at times feels like something moving his is ear . Denies drainage. no external redness noted.
== END 2025-01-27 04:40 | disposition left against medical advice (07) ==
PROVIDERS: Emergency Provider Emergency Medicine; PCP Internal Medicine
DX: H92.02 Otalgia, left ear (principal)
CPT/HCPCS: 99281; 99283; 99284